=== PATIENT | female | born 1945 | race Caucasian/White ===

== ENCOUNTER 2017-08-05 14:10 | Emergency (ER) | payer MEDICARE ==
--- NOTE | 2017-08-05 15:29 | RAD ---
EXAM: TWO VIEWS RIGHT HIP: HISTORY: Fall. Pain. COMPARISON: None. FINDINGS: There appears to be suprapubic ramus fracture with possible extension to the symphysis pubis. Conto ur of the right femoral head is maintained. Mild loss of joint space height. No fracture. IMPRESSION: Right superior pubic ramus fracture with possible extension into the symphysis pubis. POS: [facility]
--- NOTE | 2017-08-05 15:33 | RAD ---
EXAM: ONE VIEW PELVIS 08/05/17 HISTORY: Fall. Pain. COMPARISON: 08/17/13. FINDINGS: Chronic changes to the left inferior and superior pubic rami are noted. Probable right superior pubi c ramus fracture. Fracture lucency may extend into the symphysis pubis. Sacroiliac joints are patent and symmetric. Sacral ala appear to be preserved. The left and right femoral head and femoral necks are symmetric on the single projection. Mild degen erative changes are noted bilaterally. IMPRESSION: Probable right inferior and superior pubic ramus fracture with fracture lucency extending into the r egion of the symphysis pubis. POS: [facility]
--- NOTE | 2017-08-05 15:58 | RAD ---
EXAM: RIGHT ELBOW 4 VIEWS: HISTORY: Fall. Injury. COMPARISON: None. FINDINGS: No fracture. No cortical irregularity. No periosteal reaction. No joint effusion. IMPRESSION: Unremarkable 4 views right elbow. POS: [facility]
[2017-08-05] MEDS ORDERED: Ondansetron ODT 4 MG TAB ONE (16:10)
[2017-08-05] MEDS ORDERED: Adacel (T-DAP) 0.5 ML VIAL ONE (16:15)
[2017-08-05] MEDS ORDERED: Bacitracin Zinc 1 Packet ONE (16:21)
[2017-08-05] MEDS ORDERED: HYDROcodone/Acetaminophen 10/325 mg Tablet ONE (18:38)
--- NOTE | 2017-08-05 20:49 | CT ---
CT OF PELVIS NONCONTRAST 08/05/17 CLINICAL HISTORY: Trauma, pain related to fall. FINDINGS: There is a minimally displaced fracture involving the right pubic body. Extending to the anterior as pect of the symphysis pubis and involving the medial aspect of the superior and inferior pubic rami. Chronic fracture deformity involves the medial left pubis. There is also a chronic fracture deformi ty involving the lateral aspect of the inferior left pubic ramus with associated osseous remodeling. Benign appearing region of sclerosis involves the intertrochanteric aspect of the proximal right fe mur. Hip joints are maintained with evidence of osteoarthritis. There is a soft tissue hematoma at t he right iliac and inguinal region. This exerts mild effacement upon the right aspect of the urinary bladder with slight leftward displacement. There is a contusion of the lateral, proximal right thig h subcutaneous region. Incidental note of vascular calcification and colonic diverticulosis. IMPRESSION: 1. Acute minimally displaced fracture involving the medial aspect of the right pubis centered a t the pubic body with involvement of medial aspect of the superior inferior pubic rami. 2. Chronic fracture deformity of the medial left pubis and lateral aspect of the inferior left pubic ramus. POS: [facility]
== END 2017-08-05 20:13 | disposition home or self-care (01) ==
LOC: SCSER 14:10
DX: S32.591A Other specified fracture of right pubis, initial encounter for closed fracture (principal); S51.011A Laceration without foreign body of right elbow, initial encounter; S76.001A Unspecified injury of muscle, fascia and tendon of right hip, initial encounter; E78.5 Hyperlipidemia, unspecified; I10 Essential (primary) hypertension; G43.909 Migraine, unspecified, not intractable, without status migrainosus; I63.9 Cerebral infarction, unspecified; Z86.711 Personal history of pulmonary embolism; Z79.01 Long term (current) use of anticoagulants; Z79.899 Other long term (current) drug therapy; W18.30XA Fall on same level, unspecified, initial encounter; Y93.02 Activity, running
CPT/HCPCS: 72170; 72192; 90471; 90715; 96372; J2270; Q0162

== ENCOUNTER 2017-08-25 09:00 | Outpatient (CLI) | payer MEDICARE ==
--- NOTE | 2017-08-25 13:09 | CT ---
CT ABDOMEN WITH AND WITHOUT IV CONTRAST: HISTORY: Hyperdense renal cyst. The patient has a history of lymphoma and is now in remission COMPARISON: 02/15/2017. FINDINGS: There is elevation of the right hemidiaphragm with adjacent subsegmental atelectatic change. A tiny pericardial effusion is present. The liver, spleen, pancreas, and adrenal glands are unremarkable. The patient is post cholecystectomy. No calculi are seen in the kidneys are visualized portion of the ureters. No hydroureteronephrosis is noted on either side. The nonenhancing, 2.5 cm, exophytic mass arising from the left kidney is s table and demonstrates an attenuation value of 39 Hounsfield units on the noncontrasted image. A ti ny calcification is seen in the posterior wall of the inferior aspect of this mass. The 1 cm low de nsity lesion in the inferior pole of the left kidney, likely cyst, is stable. There are tiny, low d ensity lesions in the right kidney, too small to characterize. A hiatal hernia is again noted. No free air, free fluid, or lymphadenopathy is seen in the abdomen. There are vascular calcifications without evidence of aneurysmal dilatation of the abdominal aorta . There are degenerative changes in the spine. There is a small fracture involving the anterior as pect of the right sacral ala, with associated increased density in the right sacral ala and the post erior aspect of the right iliac bone. These findings are new since the previous study. IMPRESSION: 1. Stable 3.5 cm exophytic left renal mass since 02/15/2017. 2. Hiatal hernia. 3. Tiny pericardial effusion. 4. Fracture of the anterior wall of the right sacral ala with associated increased density in the r ight sacral ala and right iliac bone. This is new since 02/15/2017. This may represent an insuffic iency fracture. Metastatic/infiltrative process cannot be excluded. Further evaluation with MRI of the pelvis with and without IV contrast is recommended. POS: [facility]
[2017-08-25] MEDS ORDERED: Iopamidol 370 76% 100 ML VIAL ONE (15:24)
== END 2017-08-25 09:01 | disposition home or self-care (01) ==
LOC: CT 09:00
PROVIDERS: ATTEND Urology
DX: N28.1 Cyst of kidney, acquired (principal); N28.89 Other specified disorders of kidney and ureter; K44.9 Diaphragmatic hernia without obstruction or gangrene; I31.3 Pericardial effusion (noninflammatory); S32.10XA Unspecified fracture of sacrum, initial encounter for closed fracture; I48.91 Unspecified atrial fibrillation
CPT/HCPCS: 74170

== ENCOUNTER 2017-12-24 10:58 | Outpatient (CLI) | payer MEDICARE | END 2017-12-24 10:59 | disposition home or self-care (01) | LOC: BICMAMMO 10:58 | PROVIDERS: ATTEND Family Medicine | DX: M81.0 Age-related osteoporosis without current pathological fracture (principal) | CPT/HCPCS: 77080 ==

== ENCOUNTER 2018-03-11 10:35 | Outpatient (CLI) | payer MEDICARE | END 2018-03-11 10:36 | disposition home or self-care (01) | LOC: BICMAMMO 10:35 | PROVIDERS: ATTEND Family Medicine | DX: Z12.31 Encounter for screening mammogram for malignant neoplasm of breast (principal); R92.1 Mammographic calcification found on diagnostic imaging of breast; Z85.72 Personal history of non-Hodgkin lymphomas | CPT/HCPCS: 77063; 77067 ==

== ENCOUNTER 2018-09-19 08:29 | Outpatient (CLI) | payer MEDICARE ==
[2018-09-19] MEDS ORDERED: Iopamidol 370 76% 100 ML VIAL ONE (10:59)
--- NOTE | 2018-09-19 12:28 | CT ---
CT ABDOMEN AND PELVIS: 09/19/2018 HISTORY: Grade 1 lymphoma. COMPARISON: 02/15/2017, 08/25/2017, 03/19/2016 TECHNIQUE: Serial axial CT imaging at 5 mm intervals, from the lung bases through the pubic symphysis, with intr avenous and oral contrast. Coronal reformatted imaging obtained. FINDINGS: The imaged lung bases are unremarkable. No free intraperitoneal air or fluid is seen. There are cholecystectomy clips present. The liver, spleen, pancreas, and adrenal glands demonstrate no acute findings. The right kidney is unremarkable. An exophytic, low density lesion emanates from the posteromedial aspect of the mid pole left kidney, with Hounsfield units of 30. This lesion measures 2.6 cm in AP dimension. Since the 08/25/2017 exa m, this lesion has enlarged, previously measuring 2.2 cm in AP dimension. The 08/25/2017 examination did not demonstrate significant enhancement, suggesting that this lesion represents an enlarging hem orrhagic/proteinaceous cyst. The uterus appears surgically absent. Sigmoid diverticulosis without evidence for diverticulitis noted. No focal area of bowel inflammator y change or evidence of bowel obstruction. Stable nonspecific sclerotic focus noted within the proximal right femur, on axial image 73, unchange d since 2016. There are multiple mildly prominent retroperitoneal lymph nodes within the left paraaortic region. T his includes a node measuring up to 8 mm in short axis dimension, on axial image 37, not significantl y changed when compared to multiple prior examinations. Multiple left paraortic nodes further superi mindy, near the region of the renal vasculature, on the left, also noted, measuring up to 9 mm in shor t axis dimension, also not appreciably changed since the 2016 exam. No new enlarged nodes. There is extensive atherosclerotic calcification of the abdominal aorta and its branches. There is e ctasia of the distal thoracic aorta, which measures up to 3.2 cm in greatest transverse dimension, un changed since 2016. Review of the osseous structures demonstrates fractures of the superior pubic ramus and inferior pubi c ramus, on the left, similar when compared to the 02/15/2017 exam. There is a new healing fracture involving the inferior pubic ramus on the right, when compared to 02/15/2017. There is also a healin g new fracture involving the superior pubic ramus, anteriorly, on the right, when compared to the examination. There is abnormal mottled density within the right sacral ala, similar when compared to 08/25/2017. There is an old stable left sacral ala fracture. These findings suggest extensive insufficiency frac tures of the pelvis. Degenerative change involving the bilateral hips. There are mild anterior wedge compression deformities of L1 and L2, as seen on the 08/25/2017 examina tion. IMPRESSION: 1. Stable mild retroperitoneal lymphadenopathy, unchanged since 2016. 2. Enlarging, exophytic, hyperdense lesion emanating from the left kidney. CT examination with and without contrast performed on 08/25/2017 demonstrated no enhancement of this lesion, suggesting that this represents an enlarging proteinaceous/hemorrhagic cyst. 3. Extensive atherosclerotic disease. 4. No splenomegaly. 5. Progression of insufficiency fractures within the pelvis, as detailed above. POS: [facility]
== END 2018-09-19 08:30 | disposition home or self-care (01) ==
LOC: CT 08:29
PROVIDERS: ATTEND Internal Medicine Hematology & Oncology
DX: C85.90 Non-Hodgkin lymphoma, unspecified, unspecified site (principal); R59.0 Localized enlarged lymph nodes; N28.9 Disorder of kidney and ureter, unspecified; I70.0 Atherosclerosis of aorta; M84.454A Pathological fracture, pelvis, initial encounter for fracture
CPT/HCPCS: 74177; 82565

== ENCOUNTER 2018-10-21 11:58 | Outpatient (CLI) | payer MEDICARE ==
--- NOTE | 2018-10-21 14:25 | ULT ---
BILATERAL RENAL ULTRASOUND: Date: 10/21/18 HISTORY: Hematuria. Renal cysts. FINDINGS: Comparison made with the ultrasound of 03/09/[address] scan of 09/19/18. The right kidney measures 9.0 cm in length and the left kidney measures 10.0 cm in length. No hydrone phrosis seen on either side. There is a 2.2 cm exophytic cyst arising from the inferior pole of the l eft kidney. Urinary bladder is unremarkable. The internal echoes in the cysts noted on the previous exam show significant interval improvement. IMPRESSION: Left renal cyst. POS: [facility]
== END 2018-10-21 11:59 | disposition home or self-care (01) ==
LOC: BICULT 11:58
PROVIDERS: ATTEND Urology
DX: R31.29 Other microscopic hematuria (principal); N28.1 Cyst of kidney, acquired
CPT/HCPCS: 76770

== ENCOUNTER 2019-03-13 10:47 | Outpatient (CLI) | payer MEDICARE ==
--- NOTE | 2019-03-13 11:23 | MMO ---
Bilateral MAMMO Bilat Screen [facility]. CLINICAL HISTORY: Patient is 73 years old and is seen for screening. The patient has no family history of breast cancer. The patient has a history of lymphoma at age 71. VIEWS: The views performed were: bilateral craniocaudal with tomosynthesis and bilateral mediolateral oblique with tomosynthesis. FILMS COMPARED: The present examination has been compared to prior imaging studies performed at [facility] on 12/25/2013, 02/04/2015, 02/14/2016, 03/09/2017 and 03/11/2018. MAMMOGRAM FINDINGS: There are scattered fibroglandular densities. There are stable benign appearing calcifications seen in both breasts. There are also vascular calcifications. There are no suspicious masses, suspicious calcifications, or new areas of architectural distortion. IMPRESSION: THERE IS NO MAMMOGRAPHIC EVIDENCE OF MALIGNANCY. A ROUTINE FOLLOW-UP MAMMOGRAM IN 1 YEAR IS RECOMMENDED. THE RESULTS OF THIS EXAM WERE SENT TO THE PATIENT. ACR BI-RADS Category 2 - Benign finding MAMMOGRAPHY NOTE: 1. A negative mammogram report should not delay a biopsy if a dominant of clinically suspicious mass is present. 2. Approximately 10% to 15% of breast cancers are not detected by mammography. 3. Adenosis and dense breasts may obscure an underlying neoplasm.
== END 2019-03-13 10:48 | disposition home or self-care (01) ==
LOC: BICMAMMO 10:47
PROVIDERS: ATTEND Family Medicine
DX: Z12.31 Encounter for screening mammogram for malignant neoplasm of breast (principal); Z85.72 Personal history of non-Hodgkin lymphomas
CPT/HCPCS: 77063; 77067

== ENCOUNTER 2019-03-16 13:02 | Emergency (ER) | payer MEDICARE ==
[2019-03-16 15:15] LABS: #Basophils 0.1 thou/uL (0.0-0.2); #Lymphocytes 2.5 thou/uL (1.20-3.40); #Monocytes 0.9 thou/uL (0.11-0.59); #Neutrophils 10.9 thou/uL (1.40-6.50); %Basophils 0.4 % (0.0-1.0); %Eosinophils 0.3 % (0.0-10.0); %Lymphocytes 17.2 % (21.0-51.0); %Monocytes 6.1 % (0.0-10.0); Hemoglobin 12.4 g/dL (12.0-16.0); Mean Corpuscular HGB CONC 32.6 g/dL (32.0-36.0); Mean Corpuscular Hemoglobin 26.3 pg (27.0-31.0); Mean Corpuscular Volume 80.4 fL (78.0-98.0); Mean Platelet Volume 7.7 fL (7.4-10.4); Platelet Count 332 thou/uL (130-400); RBC Distribution Width 14.9 % (11.5-14.5); Red Blood Cell (RBC) Count 4.73 mill/uL (4.20-5.40); White Blood Cell (WBC) Count 14.3 thou/uL (4.8-10.8)
[2019-03-16] MEDS ORDERED: Acetaminophen 500 MG TAB ONE (15:26)
[2019-03-16 15:33] LABS: Bilirubin Negative (Negative); Blood, Urine Small (Negative); Clarity CLEAR (Clear); Glucose, Urine (Dipstick) Negative (Negative); Leukocyte Negative (Negative); Nitrite Negative (Negative); Protein, Urine (Dipstick) Negative (Neg-Trace); Urobilinogen 0.2 mg/dL (0.2-1.0)
--- NOTE | 2019-03-16 15:33 | RAD ---
EXAM: Single view of the chest HISTORY: Fever and headache COMPARISON: 08/18/2013 FINDINGS: Single view of the chest shows an enlarged but stable cardiomediastinal silhouette. Athero sclerotic calcific lesions are seen in the aorta. There is no evidence of consolidation, mass, or pleural effusion. Hardware is seen in the cervical spine. IMPRESSION: No evidence of acute cardiopulmonary disease
[2019-03-16 15:35] LABS: Bacteria/HPF None Seen HPF (None Seen); Hyaline Casts/LPF 0-3 HYALINE CAST LPF (0-3 Hyaline); Squamous Epithelial None Seen HPF (0-3); WBC/HPF None Seen HPF (0-3)
[2019-03-16 15:37] LABS: Specific Gravity, Urine 1.003 (1.002-1.036)
[2019-03-16 15:37] LABS: ALT (SGPT) 21 U/L (8-55); AST (SGOT) 35 U/L (5-34); Albumin 4.1 g/dL (3.4-4.8); Alkaline Phosphatase 51 U/L (40-150); Anion Gap 14 mmol/L (10-20); BUN (Urea Nitrogen) 10 mg/dL (9.8-20.1); Bilirubin, Total 0.8 mg/dL (0.2-1.2); CK (CPK) 108 U/L (29-168); Calc. Creatinine Clearance 0 mL/min (70-130); Calcium 9.4 mg/dL (7.8-10.44); Carbon Dioxide 27 mmol/L (23-31); Chloride 107 mmol/L (98-107); Estimated GFR-MDRD 71; Globulin 1.7 g/dL (2.4-3.5); Glucose 91 mg/dL (83-110); Lipase 80 U/L (8-78); Potassium 3.8 mmol/L (3.5-5.1); Protein, Total 5.8 g/dL (6.0-8.3); Sodium 144 mmol/L (136-145)
[2019-03-16 15:59] LABS: CKMB 1.2 ng/mL (0-6.6)
[2019-03-16] MEDS ORDERED: diphenhydrAMINE 50 MG/ML VIAL ONE (16:05)
[2019-03-16] MEDS ORDERED: Metoclopramide HCl 10 MG/2 ML VIAL ONE (16:05)
--- NOTE | 2019-03-16 16:28 | CT ---
CT Abdomen Pelvis W Con: 03/16/2019 3:45 PM CLINICAL INFORMATION: Fever and chills. History of lymphoma. COMPARISON: None. TECHNIQUE: Multiple contiguous axial images were obtained and a CT of the abdomen and pelvis with IV contrast. C oronal reformats were performed. FINDINGS: Lower Chest: within normal limits. Abdomen: Liver: within normal limits. Bile Ducts: Normal caliber. Gallbladder: Surgically absent Pancreas: within normal limits. Spleen: within normal limits. Adrenals: within normal limits. Kidneys: 2.4 cm left renal cyst. Pelvis: Reproductive Organs: Status post hysterectomy Ureters: within normal limits. Bladder: within normal limits. Peritoneum: No ascites or free air, no fluid collection. Bowel: Normal caliber. Mesentery and Retroperitoneum: No enlarged mesenteric or retroperitoneal lymph nodes. Vessels: Atherosclerotic calcifications in the aorta and its branch vessels. Abdominal Wall: within normal limits. Bones: Degenerative changes in the spine. Remote healed pelvic fractures. IMPRESSION: 1. No evidence of acute intra-abdominal/pelvic abnormality 2. Left renal cyst
--- NOTE | 2019-03-18 10:34 | EKG ---
Test Reason : Blood Pressure : / mmHG Vent. Rate : 066 BPM Atrial Rate : 072 BPM P-R Int : 120 ms QRS Dur : 084 ms QT Int : 380 ms P-R-T Axes : 041 005 052 degrees QTc Int : 398 ms Sinus rhythm with Blocked Premature atrial complexes Otherwise normal ECG Confirmed by ANMOL ALLAN ([id number]), food editor JUAN ALBERTO GODOY ([id number]) on 03/18/2019 10:34:09 AM Referred By: Confirmed By:ANMOL ALLAN
== END 2019-03-16 17:25 | disposition home or self-care (01) ==
LOC: ERS 13:02
DX: R51 Headache (principal); R50.9 Fever, unspecified; E78.5 Hyperlipidemia, unspecified; I10 Essential (primary) hypertension; Z86.73 Personal history of transient ischemic attack (TIA), and cerebral infarction without residual deficits; Z86.711 Personal history of pulmonary embolism; Z79.01 Long term (current) use of anticoagulants; Z79.899 Other long term (current) drug therapy; Z79.52 Long term (current) use of systemic steroids
CPT/HCPCS: 36415; 71045; 74177; 80053; 81003; 81015; 82550; 82553; 83605; 83690; 84484; 85025; 87040; 87086; 93005; 94760; 96361; 96365; 96375; J1200; J2765

== ENCOUNTER 2019-07-17 12:27 | Outpatient (CLI) | payer MEDICARE ==
--- NOTE | 2019-07-17 14:47 | ULT ---
RENAL ULTRASOUND: HISTORY: Renal cyst. COMPARISON: A 03/16/2019 CT examination. FINDINGS: Real-time imaging of the right and left kidneys was performed. The right kidney measures 10 cm. The left kidney also measures 10 cm in size. The cyst seen within the left kidney is difficult to visua lize by ultrasound given its medial position. It measures approximately 2.1 x 2.4 cm which appears t o be a similar measurement to that obtained on the prior study. Bladder region is unremarkable. IMPRESSION: Stable appearance to an exophytic hypodensity within the left kidney. This is difficult to definitel y characterize as a cyst on ultrasound due to its medial position which makes imaging very difficult. It does not appear changed in size as compared to the 03/16/2019 study. I cannot definitely charact erize this as a cyst based on the ultrasound features. POS: [facility]
== END 2019-07-17 12:28 | disposition home or self-care (01) ==
LOC: BICULT 12:27
PROVIDERS: ATTEND Urology
DX: N28.1 Cyst of kidney, acquired (principal); R31.29 Other microscopic hematuria; R93.422 Abnormal radiologic findings on diagnostic imaging of left kidney
CPT/HCPCS: 76770

== ENCOUNTER 2019-12-26 09:46 | Outpatient (CLI) | payer MEDICARE ==
--- NOTE | 2019-12-26 10:23 | BD ---
EXAM: DEXA bone density examination HISTORY: 74-year-old postmenopausal female for screening COMPARISON: 11/18/2015 FINDINGS: L1--bone mineral density 0.805 g/sq cm; T score -1.7 L2--bone mineral density 0.845 g/sq cm; T score -1.7 L3--bone mineral density 0.810 g/sq cm; T score -2.5 L4--bone mineral density 0.756 g/sq cm; T score -2.8 Total L1-L4--bone mineral density 0.803 g/sq cm; T score -2.2 Left femoral neck--bone mineral density0.529; T score -2.9 Total proximal left femur--bone mineral density 0.557; T score -3.2 IMPRESSION: Osteoporosis. When compared to the prior examination, the bone is seen in the hip has dec reased approximately 9% and the bone density in the spine has not changed significantly.
== END 2019-12-26 09:47 | disposition home or self-care (01) ==
LOC: BICMAMMO 09:46
PROVIDERS: ATTEND Internal Medicine Rheumatology
DX: M81.0 Age-related osteoporosis without current pathological fracture (principal)
CPT/HCPCS: 77080

== ENCOUNTER 2020-03-20 11:15 | Outpatient (CLI) | payer MEDICARE ==
--- NOTE | 2020-03-20 11:41 | MMO ---
Bilateral MAMMO Bilat Screen [facility]. CLINICAL HISTORY: Patient is 74 years old and is seen for screening. The patient has no family history of breast cancer. The patient has a history of lymphoma at age 71. VIEWS: The views performed were: bilateral craniocaudal with tomosynthesis and bilateral mediolateral oblique with tomosynthesis. FILMS COMPARED: The present examination has been compared to prior imaging studies performed at [facility] on 02/14/2016, 03/09/2017, 03/11/2018 and 03/13/2019. This study has been interpreted with the assistance of computer-aided detection. MAMMOGRAM FINDINGS: There are scattered fibroglandular densities. There are stable benign appearing calcifications seen in both breasts. There are also vascular calcifications. There are no suspicious masses, suspicious calcifications, or new areas of architectural distortion. IMPRESSION: THERE IS NO MAMMOGRAPHIC EVIDENCE OF MALIGNANCY. A ROUTINE FOLLOW-UP MAMMOGRAM IN 1 YEAR IS RECOMMENDED. THE RESULTS OF THIS EXAM WERE SENT TO THE PATIENT. ACR BI-RADS Category 2 - Benign finding MAMMOGRAPHY NOTE: 1. A negative mammogram report should not delay a biopsy if a dominant of clinically suspicious mass is present. 2. Approximately 10% to 15% of breast cancers are not detected by mammography. 3. Adenosis and dense breasts may obscure an underlying neoplasm. Reported by: AMI HOPE MD Electonically Signed: [id number]
== END 2020-03-20 11:16 | disposition home or self-care (01) ==
LOC: BICMAMMO 11:15
PROVIDERS: ATTEND Family Medicine
DX: Z12.31 Encounter for screening mammogram for malignant neoplasm of breast (principal); Z85.72 Personal history of non-Hodgkin lymphomas
CPT/HCPCS: 77063; 77067

== ENCOUNTER 2020-07-29 11:26 | Outpatient (CLI) | payer MEDICARE ==
--- NOTE | 2020-07-29 12:48 | ULT ---
ULTRASOUND RETROPERITONEUM COMPLETE: (RENAL) DATE: 07/29/2020 HISTORY: Follow-up left renal mass in 75-year-old female COMPARISON: 10/21/2018 ultrasound 07/17/2019 ultrasound FINDINGS: There is an approximately 3 x 2 x 3 cm pedunculated exophytic cyst protruding inferomedially from the medial cortical surface of the left renal mid-lower pole. This is unchanged in size compared to CT of 03/16/2019. This is much better visualized on today's ultrasound compared to the previous, and has the appearance of a benign simple cyst, with anechoic contents and thin granados. Inferior to that, there is a round 1 x 1.5 cm lobular cyst in the lower pole parenchyma. No definite evidence of solid renal neoplasm. Right kidney is 9 x 4.5 x 4.5 cm. Left kidney is 9.5 x 6 x 4.5 cm. No hydronephrosis. Urinary bladder volume is 100 mL at time of scan with no abnormality identified. IMPRESSION: 1) 2 left renal cysts. 2) no evidence of renal neoplasm
== END 2020-07-29 11:27 | disposition home or self-care (01) ==
LOC: BICULT 11:26
PROVIDERS: ATTEND Urology
DX: N28.1 Cyst of kidney, acquired (principal)
CPT/HCPCS: 76770; 81001

== ENCOUNTER 2020-09-26 19:30 | Emergency (ER) | payer MEDICARE ==
[2020-09-26] MEDS ORDERED: Dexamethasone 10 MG/ML VIAL ONE (20:09)
[2020-09-26] MEDS ORDERED: Famotidine 20 MG TAB ONE (20:09)
== END 2020-09-26 21:16 | disposition home or self-care (01) ==
LOC: ERS 19:30
DX: R13.10 Dysphagia, unspecified (principal); R42 Dizziness and giddiness; T44.7X5A Adverse effect of beta-adrenoreceptor antagonists, initial encounter; T46.4X5A Adverse effect of angiotensin-converting-enzyme inhibitors, initial encounter; E78.5 Hyperlipidemia, unspecified; E78.00 Pure hypercholesterolemia, unspecified; I10 Essential (primary) hypertension; G43.909 Migraine, unspecified, not intractable, without status migrainosus; Z79.899 Other long term (current) drug therapy
CPT/HCPCS: 99284; J1100; J7620

== ENCOUNTER 2020-10-25 11:26 | Inpatient (IN) | payer MEDICARE ==
[2020-10-25] MEDS ORDERED: Aspirin Chewable 81 MG TAB ONE (11:53)
--- NOTE | 2020-10-25 12:10 | RAD ---
Exam: Chest one view HISTORY:Altered mental status Comparison: 03/16/2019 FINDINGS: Cardiac silhouette:Cardiomegaly. Aorta: Atherosclerosis and elongation of the aorta Pulmonary vessels: Normal Costophrenic angles: Clear LUNGS: No masses or consolidation. Chronic lung parenchymal changes. Pneumothorax: None Osseous abnormalities: Incompletely evaluated cervical fusion hardware IMPRESSION: 1. Atherosclerosis. 2. Cardiomegaly.
[2020-10-25 12:12] LABS: Bilirubin Negative (Negative); Blood, Urine Negative (Negative); Clarity Clear (Clear); Glucose, Urine (Dipstick) Normal (Negative); Ketone, Urine Negative (Negative); Leukocyte Negative Leu/uL (Negative); Nitrite Negative (Negative); Protein, Urine (Dipstick) Negative (Neg-Trace); Specific Gravity, Urine 1.005 (1.002-1.036); Urobilinogen Normal mg/dL (Less than 2)
[2020-10-25 12:21] LABS: Amphetamine Not Detected (NotDetected); Barbiturates Screen Not Detected (NotDetected); Benzodiazepine Screen Not Detected (NotDetected); Cocaine Metabolite Screen Not Detected (NotDetected); Medtox Control Line Valid? VALID (VALID); Medtox Reader # READER 4; Methadone Not Detected (NotDetected); Methamphetamine Not Detected (NotDetected); Opiate Screen Not Detected (NotDetected); Oxycodone Screen Not Detected (NotDetected); Phencyclidine (PCP) Not Detected (NotDetected); THC/Cannabinoid Screen Not Detected (NotDetected); Tricyclic Screen Not Detected (NotDetected)
[2020-10-25 12:31] LABS: #Basophils 0.1 thou/uL (0.0-0.2); #Eosinphils 0.1 thou/uL (0.0-0.7); #Monocytes 0.6 thou/uL (0.11-0.59); #Neutrophils 5.4 thou/uL (1.40-6.50); %Basophils 0.7 % (0.0-1.0); %Lymphocytes 14.5 % (21.0-51.0); %Monocytes 7.8 % (0.0-10.0); Hemoglobin 10.5 g/dL (12.0-16.0); Mean Corpuscular HGB CONC 30.7 g/dL (32.0-36.0); Mean Corpuscular Hemoglobin 24.1 pg (27.0-31.0); Mean Corpuscular Volume 78.4 fL (78.0-98.0); Mean Platelet Volume 8.5 fL (7.4-10.4); Platelet Count 294 thou/uL (130-400); RBC Distribution Width 18.5 % (11.5-14.5); Red Blood Cell (RBC) Count 4.34 mill/uL (4.20-5.40); White Blood Cell (WBC) Count 7.1 thou/uL (4.8-10.8)
[2020-10-25 12:52] LABS: Acetaminophen Less than 6.0 mcg/mL (10.0-30.0); Alcohol Less than 10 mg/dL (Less than 10); Salicylate Less than 8.0 mg/dL (15.0-30.0)
[2020-10-25 13:10] LABS: ALT (SGPT) 12 U/L (8-55); AST (SGOT) 25 U/L (5-34); Albumin 3.5 g/dL (3.4-4.8); Alkaline Phosphatase 79 U/L (40-110); Anion Gap 13 mmol/L (10-20); BUN (Urea Nitrogen) 12 mg/dL (9.8-20.1); Bilirubin, Total 0.5 mg/dL (0.2-1.2); Calc. Creatinine Clearance 0 mL/min (70-130); Calcium 8.1 mg/dL (7.8-10.44); Carbon Dioxide 26 mmol/L (23-31); Chloride 109 mmol/L (98-107); Globulin 1.6 g/dL (2.4-3.5); Glucose 94 mg/dL (83-110); Potassium 3.9 mmol/L (3.5-5.1); Protein, Total 5.1 g/dL (6.0-8.3); Sodium 144 mmol/L (136-145)
[2020-10-25 13:14] LABS: CKMB 1.8 ng/mL (0-6.6)
--- NOTE | 2020-10-25 14:10 | CT ---
CT Brain WO Con: 10/25/2020 1:40 PM CLINICAL HISTORY: History of new onset A. fib with TIAs and a syncopal episode. IMAGING TECHNIQUE: Multiple CT images were obtained of the brain without IV contrast. COMPARISON: CT of the cervical spine dated December 19, 2014. FINDINGS: BRAIN: Evidence of acute infarct: None. Evidence of chronic ischemic change:There is [id number] chronic small vessel matter ischemic ch davi. Evidence of intracranial hemorrhage: None. Evidence of brain volume loss:There is [id number] generalized cerebral atrophy. Evidence of midline shift: Third ventricle and septum pellucidum are midline. Ventricles: Normal. No hydrocephalus. SKULL: Intact. VISUALIZED PARANASAL SINUSES: Clear. MASTOID AIR CELLS: Clear. EXTRACRANIAL SOFT TISSUES: Advanced degenerative change at C1-C2 and the occiput C1 articulation is stable to the CT of the cervical spine. IMPRESSION: No acute intracranial abnormality.
--- NOTE | 2020-10-25 14:45 | PDOC.HHP ---
Hospitalist HPI - History of Present Illness Weakness, syncope History of Present Illness: Ms. Yung is a 75-year-old female with a past medical history of lupus, pulmonary embolism on warfarin, hyperlipidemia, hypertension, migraines who presented to the emergency room for weakness and syncopal episodes. Patient was brought in by who most of the history was taken from. Her reports that this morning they were up cooking breakfast and his became nauseous and felt weak. He gave her some soda and crackers but this did not help her symptoms. reports that she was sitting up kept on repeating she did not feel well, and then fell backwards in her chair unconscious. Patient r egained consciousness about 30 seconds later, but had mumbled speech for a few seconds. Patient's then helped her move to the other room to lie down where she again lost consciousness for 30 to 60 seconds this time. Patient's then called EMS and she was brought to the emergency room. EMS did note 3 repeated episodes of loss of consciousness all lasting for 30 seconds in nature. Also question of brief A. fib on EKG during transport, but otherwise in normal sinus rhythm. Patient denies any numbness or weakness to her extremities, she endorses being confused and feeling weak. She is now ANO x3 and her and her reports she is back at her baseline mental status. She denies any history of prior syncopal episodes. Denies melena, hematochezia, hematuria. Denies chest pain, shortness of breath. Emergency room initial vital signs 151/58, 77, 15, 98% on room air, 98.7. H/H 10.5/34.0. White blood cell count 7.1. BUNs/CR 12/0.72. Sodium 144, potassium 3.[address] brain showed no acute abnormalities. Chest x-ray with no acute findings. Urinalysis negative. EKG showed normal sinus rhythm with no ST changes. Troponin indeterminate at 0.047. Drug screen and Tylenol level negative. Patient received 1 L of normal saline and 325 mg of aspirin. Hospitalist ROS - Review of Systems Constitutional: reports: chills, weakness, malaise. denies: fever, sweats Eyes: denies: pain, vision change, conjunctivae inflammation, eyelid inflammation, redness, other ENT: denies: ear pain, ear discharge, nose pain, nose discharge, nose congestion, mouth pain, mouth swelling, throat pain, throat swelling, other Respiratory: denies: cough, dry, shortness of breath, hemoptysis, SOB with excertion, pleuritic pain, sputum, wheezing, other Cardiovascular: reports: light headedness, other (Syncope) Gastrointestinal: reports: nausea. denies: vomiting, abdominal pain, diarrhea, constipation, melena, hematochezia, other Genitourinary: denies: dysuria, frequency, incontinence, hematuria, retention, other Musculoskeletal: denies: neck pain, shoulder pain, arm pain, back pain, hand pain, leg pain, foot pain, other Skin: denies: rash, lesions, bartolome, bruising, other Neurological: reports: change in speech, confusion (Syncope), other. denies: weakness, numbness, incoordination, seizures - Medication Medications: New medications include Prednisone Lasix Atorvastatin Gabapentin Warfarin Baclofen Vitamin D3 Calcium Omeprazole Metoprolol Maxalt Boniva Methotrexate Folic acid Patient with allergy to penicillin, alcohol, chocolate, Myrbetriq Hospitalist History - Past Medical History Other Medical History: Past medical history includes Lupus Unprovoked pulmonary embolism on warfarinpatient reports that there is a question if she had clot that caused a TIA but details are unclear, and no records in our system of this. Hypertension Hyperlipidemia Migraines - Past Surgical History Other Surgical History: Past surgical history includes Hysterectomy Tonsillectomy - Family History Other Family History: No pertinent family history - Social History Smoking Status: Never smoker Alcohol: reports: None Drugs: reports: none Living Situation: With Family Activity level: independent ambulation - Exam General Appearance: NAD, awake alert General - other findings: Alert and oriented x4, but slightly confused Eye: PERRL, anicteric sclera ENT: normocephalic atraumatic, no oropharyngeal lesions, moist mucosa Neck: supple, symmetric, no JVD, no thyromegaly, no lymphadenopathy, no carotid bruit Heart: RRR, no murmur, no gallops, no rubs, normal peripheral pulses Respiratory: CTAB, no wheezes, no rales, no ronchi, normal chest expansion, no tachypnea, normal percussion Gastrointestinal: soft, non-tender, non-distended, normal bowel sounds, no palpable masses, no hepatomegaly, no splenomegaly, no bruit Extremities: no cyanosis, no clubbing, no edema Skin: normal turgor, no lesions, no rashes Neurological: normal sensation to touch, no weakness, no focal deficits, no new deficit Musculoskeletal: normal tone, normal strength, no muscle wasting Psychiatric: normal affect, normal behavior, A&O x 3 Psychiatric - other findings: Confused but ANO x3 Hospitalist Results - Labs Result Diagrams: 10/25/20 12:20 10/25/20 12:20 Lab results: WBC 7.1 thou/uL (4.8-10.8) 10/25/20 12:20 Hgb 10.5 g/dL (12.0-16.0) L 10/25/20 12:20 Hct 34.0 % (36.0-47.0) L 10/25/20 12:20 MCV 78.4 fL (78.0-98.0) 10/25/20 12:20 Plt Count 294 thou/uL (130-400) 10/25/20 12:20 Neutrophils % 76.0 % (42.0-75.0) H 10/25/20 12:20 Sodium 144 mmol/L (136-145) 10/25/20 12:20 Potassium 3.9 mmol/L (3.5-5.1) 10/25/20 12:20 Chloride 109 mmol/L (98-107) H 10/25/20 12:20 Carbon Dioxide 26 mmol/L (23-31) 10/25/20 12:20 BUN 12 mg/dL (9.8-20.1) 10/25/20 12:20 Creatinine 0.72 mg/dL (0.6-1.1) 10/25/20 12:20 Glucose 94 mg/dL (83-110) 10/25/20 12:20 Calcium 8.1 mg/dL (7.8-10.44) 10/25/20 12:20 Total Bilirubin 0.5 mg/dL (0.2-1.2) 10/25/20 12:20 AST 25 U/L (5-34) 10/25/20 12:20 ALT 12 U/L (8-55) 10/25/20 12:20 Alkaline Phosphatase 79 U/L (40-110) 10/25/20 12:20 CK-MB (CK-2) 1.8 ng/mL (0-6.6) 10/25/20 12:20 Troponin I 0.047 ng/mL (< 0.028) H 10/25/20 12:20 Serum Total Protein 5.1 g/dL (6.0-8.3) L 10/25/20 12:20 Albumin 3.5 g/dL (3.4-4.8) 10/25/20 12:20 Urine Ketones Negative mg/dL (Negative) 10/25/20 10:55 Urine Blood Negative (Negative) 10/25/20 10:55 Urine Nitrite Negative (Negative) 10/25/20 10:55 Ur Leukocyte Esterase Negative Aileen/uL (Negative) 10/25/20 10:55 Hospitalist H&P A/P - Plan Plan: 75-year-old female with past medical history of lupus, pulmonary embolism on warfarin, hypertension, hyperlipidemia, migraines presents to ED with weakness, malaise and multiple syncopal episodes. Syncopal episodes Head CT negative, EKG with normal sinus rhythm no ischemic changes. No signs of infection afebrile, WBC 7.1. H/H 10.5/34.0. Blood cultures pending. No melena, hematochezia. No history of prior syncopal events. Patient denies palpitations or chest pain. Chest x-ray with no acute findings. No obvious electrolyte abnormalities. Vital signs stable and patient back to baseline mental status. Plan Aspirin, statin MRI brain Telemetry monitoring Magnesium, TSH Q4 hour neuro checks Covid swab, orthostatic VS Elevated troponin Patient's troponin very mildly elevated at 0.047. Patient without chest pain. EKG with no ischemic changes. Will continue to trend troponin and closely monitor. Plan Trend troponin Telemetry monitoring Covid swab Lupus History of lupus on prednisone and methotrexate. We will continue these. History of pulmonary embolism History of unprovoked DVT and PE. Patient and describe what sounds like a blood clot causing a TIA to the brain. Unsure if this is a venous clot or an arterial clot. Patient is on therapeutic warfarin. Will obtain d-dimer. Plan PT/INR Warfarin -D-dimer Hypertension Continue home medications once confirmed Hyperlipidemia Continue home statin once confirmed DVT prophylaxison warfarin Full codeMDM is patient's Case discussed with Dr. Morley.
[2020-10-25] MEDS ORDERED: Acetaminophen 650 MG Suppository PR PRN (15:01)
[2020-10-25] MEDS ORDERED: Ondansetron PF 4 MG/2 ML Vial IVP PRN (15:01)
[2020-10-25] MEDS ORDERED: Ondansetron ODT 4 MG TAB PO PRN (15:01)
[2020-10-25 15:38] LABS: INR-International Normal Ratio 1.8; Prothrombin Time 21.2 sec (12.0-14.7)
[2020-10-25 15:41] LABS: D-Dimer Test Less than 0.27 *mcg/mL (0.27-0.43)
[2020-10-25 15:46] LABS: Calcium 7.8 mg/dL (7.8-10.44); Magnesium 1.7 mg/dL (1.6-2.6)
[2020-10-25] MEDS: Sodium Chloride 0.9% 1,000 ML IV SCH (16:57)
[2020-10-25 17:08] VITALS: BMI 22.0
[2020-10-25 17:09] LABS: Troponin I 0.045 ng/mL (< 0.028)
[2020-10-25 20:01] LABS: Troponin I 0.025 ng/mL (< 0.028)
[2020-10-25 20:20] LABS: CKMB 1.8 ng/mL (0-6.6)
[2020-10-25] MEDS: Acetaminophen 325 MG TAB PO PRN (20:41)
[2020-10-25] MEDS ORDERED: hydrALAZINE 20 MG/ML VIAL SLOW IVP SCH (21:45)
[2020-10-25 22:14] LABS: SARS-CoV-2 MS2 Positive; SARS-CoV-2 N Gene Negative; SARS-CoV-2 S Gene Negative; SARS-CoV-2 by NAA Not Detected (NotDetected); SARS-CoV-2 orf1ab Negative
[2020-10-25] MEDS ORDERED: Nitroglycerin 0.4 MG TAB (25 Tab Bottle) ONE (23:46)
[2020-10-25] MEDS ORDERED: Morphine 4 MG/ML VIAL ONE (23:53)
[2020-10-26] MEDS ORDERED: Nitroglycerin 50 MG/250 ML BOT 250 ML ONE (00:01)
[2020-10-26] MEDS ORDERED: Enoxaparin Sodium 60 MG/0.6 ML SYRINGE SC SCH (00:15)
[2020-10-26] MEDS ORDERED: Nitroglycerin 50 MG/250 ML BOT 250 ML IVPB SCH (00:15)
[2020-10-26 00:16] LABS: #Eosinphils 0.1 thou/uL (0.0-0.7); #Lymphocytes 1.6 thou/uL (1.20-3.40); #Monocytes 0.4 thou/uL (0.11-0.59); #Neutrophils 1.8 thou/uL (1.40-6.50); %Basophils 0.8 % (0.0-1.0); %Eosinophils 1.8 % (0.0-10.0); %Lymphocytes 41.2 % (21.0-51.0); %Monocytes 9.9 % (0.0-10.0); %Neutrophils 46.3 % (42.0-75.0); Hemoglobin 10.5 g/dL (12.0-16.0); Mean Corpuscular HGB CONC 31.6 g/dL (32.0-36.0); Mean Corpuscular Hemoglobin 24.8 pg (27.0-31.0); Mean Corpuscular Volume 78.4 fL (78.0-98.0); Mean Platelet Volume 8.5 fL (7.4-10.4); Platelet Count 288 thou/uL (130-400); RBC Distribution Width 18.6 % (11.5-14.5); Red Blood Cell (RBC) Count 4.22 mill/uL (4.20-5.40); White Blood Cell (WBC) Count 3.8 thou/uL (4.8-10.8)
[2020-10-26 00:27] LABS: Lactic Acid 1.4 mmol/L (0.5-2.2)
[2020-10-26 00:32] LABS: ALT (SGPT) 13 U/L (8-55); AST (SGOT) 25 U/L (5-34); Albumin 3.5 g/dL (3.4-4.8); Alkaline Phosphatase 78 U/L (40-110); Anion Gap 15 mmol/L (10-20); BUN (Urea Nitrogen) 10 mg/dL (9.8-20.1); Bilirubin, Total 0.6 mg/dL (0.2-1.2); Calc. Creatinine Clearance 61 mL/min (70-130); Calcium 8.1 mg/dL (7.8-10.44); Carbon Dioxide 21 mmol/L (23-31); Chloride 111 mmol/L (98-107); Globulin 1.9 g/dL (2.4-3.5); Glucose 93 mg/dL (83-110); Magnesium 1.8 mg/dL (1.6-2.6); Potassium 3.6 mmol/L (3.5-5.1); Protein, Total 5.4 g/dL (6.0-8.3); Sodium 143 mmol/L (136-145)
--- NOTE | 2020-10-26 00:59 | PDOC.BPN ---
- Brief Progress Note Encounter Date: 10/26/20 [facility] SINGH was called for Ms. Horowitz on account of CVA 90 08/10 chest pain of sudden onset. She was also hypotensive with systolic blood pressures above 200s. Pain improved slightly with nitroglycerin and morphine however remained persistent. EKG showed no acute ST-T wave changes and was unchanged from admission. She has DVT she is on Coumadin however INR is subtherapeutic at 1.8 A/P This could be ACS versus PE We will start her on Lovenox as INR is supratherapeutic cover for both Blood pressure remains in the hypertensive emergency rangewe will start nitro drip and transferred to CCU Monitor closely CTA ordered
[2020-10-26] MEDS: Sodium Chloride 0.9% 1,000 ML IV SCH (01:01)
[2020-10-26 03:37] LABS: #Eosinphils 0.2 thou/uL (0.0-0.7); #Lymphocytes 1.9 thou/uL (1.20-3.40); #Monocytes 0.8 thou/uL (0.11-0.59); %Basophils 0.5 % (0.0-1.0); %Eosinophils 3.4 % (0.0-10.0); %Lymphocytes 32.6 % (21.0-51.0); %Monocytes 12.8 % (0.0-10.0); %Neutrophils 50.7 % (42.0-75.0); Hemoglobin 9.1 g/dL (12.0-16.0); Mean Corpuscular HGB CONC 31.3 g/dL (32.0-36.0); Mean Corpuscular Hemoglobin 24.6 pg (27.0-31.0); Mean Corpuscular Volume 78.5 fL (78.0-98.0); Mean Platelet Volume 8.4 fL (7.4-10.4); Platelet Count 273 thou/uL (130-400); RBC Distribution Width 18.6 % (11.5-14.5); Red Blood Cell (RBC) Count 3.71 mill/uL (4.20-5.40); White Blood Cell (WBC) Count 5.9 thou/uL (4.8-10.8)
[2020-10-26 04:00] LABS: Anion Gap 10 mmol/L (10-20); BUN (Urea Nitrogen) 10 mg/dL (9.8-20.1); Calc. Creatinine Clearance 66 mL/min (70-130); Calcium 7.5 mg/dL (7.8-10.44); Carbon Dioxide 25 mmol/L (23-31); Chloride 111 mmol/L (98-107); Glucose 90 mg/dL (83-110); Potassium 3.5 mmol/L (3.5-5.1); Sodium 142 mmol/L (136-145)
--- NOTE | 2020-10-26 08:44 | CT ---
PRELIMINARY REPORT/[facility]/EMERGENCY AFTER HOURS PROCEDURE EXAM: CTA Chest with Intravenous Contrast CLINICAL HISTORY: CODE GREEN/ Chest pain, severe, rule out PE TECHNIQUE: Axial CTA images of the chest with intravenous contrast. Three-dimensional MIP/volume rendered reform ations were performed. Multiplanar reformats provided. CONTRAST: With; ISOVUE 370; 42mL intravenous. COMPARISON: None provided. FINDINGS: PULMONARY ARTERIES There is no intraluminal filling defect suspicious for PE. AORTA No thoracic aortic aneurysm or dissection. LUNGS No focal consolidation. Bibasilar subsegmental atelectasis and/or scarring. Scattered sub-4 mm nodule s. PLEURAL SPACES No pleural effusion. No pneumothorax. HEART AND MEDIASTINUM Coronary artery calcifications. Heart size is mildly enlarged. No pericardial effusion. LYMPH NODES Multiple prominent mediastinal and hilar lymph nodes. BONES No focal osseous abnormality or acute fracture. Multilevel degenerative changes of the spine. CHEST WALL AND UPPER ABDOMEN Multiple small nodules within the thyroid. Coarse calcifications within the breasts. Prominent axilla ry lymph nodes. Surgical absence of the gallbladder. 3 cm indeterminate exophytic lesion arising from the lower pole of the left kidney. Small hiatal hernia. IMPRESSION: 1. Negative for PE. 2. Coronary artery disease and mild cardiomegaly. 3. Small hiatal hernia. 4. Breast calcifications and prominent axillary lymph nodes. Correlate with findings on mammography if not regularly performed. ELECTRONICALLY SIGNED BY: Jayme Chawla M.D. Oct 26, 2020 12:57:31 AM BRIDGE REPAIRER This report is intended for review by the ordering physician only, in accordance of law. If you recei ve this report in error, please call [facility] at [phone]. FINAL REPORT Exam: CT angiogram of the chest HISTORY: Chest pain. COMPARISON: None TECHNIQUE: CT angiogram of the chest is performed in the axial plane. Three-dimensional reformatted i mages are submitted for interpretation FINDINGS: Mediastinum: No mass, lymphadenopathy or hematoma. HEART: Normal size. No significant pericardial fluid. Aorta: No aneurysm or dissection Upper solid abdominal viscera: No abnormality enhancement. Trachea and central bronchi: Patent Pleural spaces: No effusion Lung parenchyma: No masses or consolidation. Pneumothorax: None Osseous structures: No lytic or blastic lesions. Remote mild compression deformities in the upper lum bar spine. Pulmonary arteries: Adequate contrast opacification pulmonary arterial system to the level of segment al arteries. No filling defect to suggest pulmonary embolism IMPRESSION: 1. This report is in agreement with initial report by [facility]. 2. No evidence of pulmonary artery embolism to the level of segmental arteries. Transcribed Date/Time: 10/26/2020 9:34 AM
[2020-10-26] MEDS: Nebivolol HCl 5 MG TAB PO SCH (09:07)
[2020-10-26] MEDS: Aspirin Chewable 81 MG TAB PO SCH (09:08)
[2020-10-26] MEDS: Atorvastatin Calcium 10 MG TAB PO SCH (09:08)
[2020-10-26] MEDS: Cholecalciferol 1,000 UNITS (25 MCG) TAB PO SCH (09:08)
[2020-10-26] MEDS: predniSONE 5 MG TAB PO SCH (09:08)
[2020-10-26] MEDS: Calcium Carbonate 600 MG + Vit D TAB PO SCH (09:08)
[2020-10-26] MEDS: Enoxaparin Sodium 60 MG/0.6 ML SYRINGE SC SCH ×2 (09:13→20:42)
--- NOTE | 2020-10-26 12:52 | MRI ---
Exam: Brain MRI without contrast HISTORY: Syncope. Transient ischemic attack COMPARISON: None FINDINGS: Calvarial marrow signal intensity: Appropriate T1 signal Gradient echo sequence: No hemorrhage Brain parenchyma: No mass, mass effect or midline shift. Brain volume, age-appropriate. Cortical godinez-white matter differentiation: Preserved Restricted diffusion: Central arterial flow voids are maintained. Absent restricted diffusion White matter signal intensities: T2, FLAIR white matter hyperintensities due to chronic small vessel ischemic changes Sinuses: Mild mucosal thickening of the paranasal sinuses. IMPRESSION: 1. Absent restricted diffusion. No acute infarct 2. Age-appropriate atrophy. 3. Chronic small vessel ischemic changes of white matter.
[2020-10-26] MEDS ORDERED: Iopamidol-370 76% 500 ML 1 ML ONE (13:37)
--- NOTE | 2020-10-26 14:24 | PDOC.HOSPP ---
- Subjective Encounter Date: 10/26/20 Encounter Time: 12:30 Subjective: no c/o palp or sob at bedside previous stress test was more than 10 yrs ago per has some epigastric dyscomfort, no chest pain as such now - Objective Vital Signs & Weight: Vital Signs (12 hours) Temp Pulse Resp BP Pulse Ox 10/26/20 12:55 99.9 F H 75 18 151/72 H 95 10/26/20 11:00 99.7 F H 10/26/20 08:00 99 10/26/20 07:00 99.4 F 10/26/20 04:00 97.5 F L Weight Weight 120 lb 6.4 oz Most Recent Monitor Data Heart Rate from ECG 75 NIBP 167/70 NIBP BP-Mean 102 Respiration from ECG 19 SpO2 93 I&O: 10/25/20 10/26/20 10/27/20 06:59 06:59 06:59 Intake Total 655 1227.6 Output Total 0 450 Balance 655 777.6 Result Diagrams: 10/26/20 03:19 10/26/20 03:19 Additional Labs: Accuchecks 10/25/20 23:45 POC Glucose 90 Hospitalist ROS - Medication Medications: Active Medications Generic Name Dose Route Start Last Admin Trade Name Freq PRN Reason Stop Dose Admin Acetaminophen 650 mg 10/25/20 15:01 10/25/20 20:41 Acetaminophen 325 Mg Tab PO 650 mg Q4H PRN Administration Headache/Fever/Mild Pain (1-3) Aspirin 81 mg 10/26/20 09:00 10/26/20 09:08 Aspirin Chewable 81 Mg Tab PO 81 mg DAILY HARINI Administration Atorvastatin Calcium 10 mg 10/26/20 09:00 10/26/20 09:08 Atorvastatin Calcium 10 Mg Tab PO 10 mg DAILY HARINI Administration Calcium/Vitamin D 1 tab 10/26/20 09:00 10/26/20 09:08 Calcium Carbonate 600 Mg + Vit D Tab PO 1 tab DAILY HARINI Administration Cholecalciferol 1,000 units 10/26/20 09:00 10/26/20 09:08 Cholecalciferol 1,000 Units (25 Mcg) Tab PO 1,000 units DAILY HARINI Administration Enoxaparin Sodium 50 mg 10/26/20 09:00 10/26/20 09:13 Enoxaparin Sodium 60 Mg/0.6 Ml Syringe SC 50 mg 0900,2100 HARINI Administration Sodium Chloride 1,000 mls @ 75 mls/hr 10/25/20 15:15 10/26/20 01:01 Normal Saline 0.9% IV 1,000 mls .[id number] HARINI Administration Nebivolol 5 mg 10/26/20 09:00 10/26/20 09:07 Nebivolol Hcl 5 Mg Tab PO 5 mg DAILY HARINI Administration Ondansetron HCl 4 mg 10/25/20 15:01 10/26/20 09:06 Ondansetron Pf 4 Mg/2 Ml Vial IVP 4 mg Q6H PRN Administration Nausea/Vomiting Prednisone 5 mg 10/26/20 09:00 10/26/20 09:08 Prednisone 5 Mg Tab PO 5 mg DAILY HARINI Administration - Exam General Appearance: awake alert Eye: PERRL, anicteric sclera ENT: no oropharyngeal lesions, moist mucosa Neck: supple, no JVD Heart: RRR, no murmur Respiratory: no wheezes, no rales Gastrointestinal: soft, non-tender, non-distended, normal bowel sounds Extremities: no cyanosis, no edema Neurological: cranial nerve grossly intact, no focal deficits Psychiatric: normal affect, A&O x 3 Hosp A/P (1) AMS (altered mental status) Code(s): R41.82 - ALTERED MENTAL STATUS, UNSPECIFIED Status: Resolved (2) Syncope Code(s): R55 - SYNCOPE AND COLLAPSE Status: Resolved Qualifiers: Syncope type: unspecified Qualified Code(s): R55 - Syncope and collapse (3) Unstable angina Status: Suspected (4) Epigastric pain Code(s): R10.13 - EPIGASTRIC PAIN Status: Acute (5) HTN (hypertension) Code(s): I10 - ESSENTIAL (PRIMARY) HYPERTENSION Status: Chronic Qualifiers: Hypertension type: essential hypertension Qualified Code(s): I10 - Ess ential (primary) hypertension (6) Dyslipidemia Code(s): E78.5 - HYPERLIPIDEMIA, UNSPECIFIED Status: Chronic (7) Hx of pulmonary embolus Code(s): Z86.711 - PERSONAL HISTORY OF PULMONARY EMBOLISM Status: Chronic (8) H/O systemic lupus erythematosus (SLE) Code(s): M32.9 - SYSTEMIC LUPUS ERYTHEMATOSUS, UNSPECIFIED Status: Chronic - Plan dc nitroglycerin drip, tx to telemetry ekg, imaging and labs were reviewed cardiology consultation continue asp, lipitor, lovenox, bystolic and prednisone ef is normal, bnp is around 830 may get stress test, await cardiology opinion hemostable to ambulate as tolerated likely has chronic anemia
--- NOTE | 2020-10-26 14:36 | CON ---
DATE OF CONSULTATION: 10/26/2020 HISTORY OF PRESENT ILLNESS: Ms. Horowitz is a 75-year-old female. She was admitted yesterday afternoon with complaints of nausea and weakness. Apparently, she had syncope at home, but recovered within 30 seconds. She again lost consciousness for up to a minute before EMS got there. It is unclear whether or not she had rhythm disturbances during these losses of consciousness. She is admitted to the floor, and apparently, had severe chest discomfort radiating to her left arm according to her . She said it was severe enough that she was starting to cry. It got considerably better with nitroglycerin administration according to the . She was transferred to Critical Care Unit. She is in no pain at the time of my evaluation. She had a CT angiogram that was negative. Troponin last night was normal. Her BNP was 830. PAST MEDICAL HISTORY: 1. She saw Dr. Bobby about 15 years ago and had a stress test that was reportedly negative. 2. She has a history of admission in 2013 with a pubic ramus fracture after she fell at home. 3. She has a history of lupus. 4. She has a history of pulmonary embolism. 5. History of hypertension. 6. Lipid disorder. 7. History of vascular headaches. 8. Status post hysterectomy and tonsillectomy. 9. History of retroperitoneal biopsy in 2012, showed a B-cell non-Hodgkin lymphoma, follicular origin. FAMILY HISTORY: Negative for lung disease in early age. SOCIAL HISTORY: She is nonsmoker and nondrinker. REVIEW OF SYSTEMS: Otherwise, negative. PHYSICAL EXAMINATION: GENERAL: She is in no distress. Denies having chest pain. She appears older than her age. VITAL SIGNS: Blood pressure 167/70, heart rate 75, respiratory rates 19. HEAD AND NECK: Unremarkable. LUNGS: Clear. HEART: Regular rhythm. ABDOMEN: Soft. EXTREMITIES: Without asymmetry. LABORATORY DATA: White count 5.9, hemoglobin 9.1, and platelets 273. Electrolytes are unremarkable. IMPRESSION: Chest pain with radiation to arm, relieved by nitroglycerin. She did not have an abnormal troponin last night I still feel Cardiology should be involved in sorting through this, given that she had to be transferred to Critical Care Unit and received nitroglycerin to control blood pressure and her pain. We will follow. She is clinically stable at this time. CT angiogram last night was negative. I am not sure what her history of lymphoma entails. I cannot find any documentation, medical records whether or not this has been treated in the past as well. We will follow the other physicians. TIME SPENT: 70-minute consult, 50% of the time was spent on the unit coordinating care. Job ID: [id number] MTDD
--- NOTE | 2020-10-26 16:47 | CON ---
DATE OF CONSULTATION: HISTORY OF PRESENT ILLNESS: The patient is a 75-year-old woman, who presents for evaluation of syncope and chest discomfort. The patient states that she underwent a cardiac evaluation approximately 15 years ago including a stress test, which was unremarkable. The patient was in her usual state of health when yesterday she started feeling nauseated, and she became very dizzy . She sat down and lost consciousness. The patient was in the ambulance, and apparently, had several other episodes where she suddenly lost consciousness. The patient was noted apparently to have an irregular heart rhythm. The patient was admitted for further evaluation. The patient last evening had a recurrent dizziness. The patient reported having severe substernal chest discomfort. The patient states that discomfort was in the middle of her chest. It seemed to improve with nitroglycerin. The patient states the chest discomfort is still present. It seems to be worse when she coughs. PAST MEDICAL HISTORY: 1. Lupus. 2. Pulmonary embolus. 3. TIA. 4. Hypertension. 5. Lymphoma. PAST SURGICAL HISTORY: Hysterectomy,and tonsillectomy. SOCIAL HISTORY: Nonsmoker. FAMILY HISTORY: No strong family history of heart disease. ALLERGIES: NO KNOWN DRUG ALLERGIES. MEDICATIONS: 1. Bystolic 5 daily. 2. Lisinopril 10 daily. 3. Warfarin 4 at bedtime. 4. Prednisone 5 daily. 5. Potassium 10 daily. 6. Omeprazole 20 daily. 7. Lasix 20 daily. 8. Lipitor 10 at bedtime. 9. Xanax p.r.n. 10. Gabapentin 100 b.i.d. REVIEW OF SYSTEMS: Ten-point system otherwise unremarkable. No history of easy bruising or bleeding. PHYSICAL EXAMINATION: GENERAL: This is a thin woman, in no acute distress. VITAL SIGNS: Blood pressure of 156/61. NECK: Showed no jugular venous distention. LUNGS: Clear to auscultation. HEART: Regular rate and rhythm. Normal S1 and S2. 1/6 systolic murmur. ABDOMEN: Nondistended. EXTREMITIES: Show no edema. VASCULAR: Radial pulse 2+. LABORATORY DATA: White blood cell count 5.9, hemoglobin 9.1, hematocrit 29.2, platelets 273. Sodium is 142, potassium 3.5, chloride 111, bicarbonate 25, BUN 10, creatinine 0.62, and glucose is 90. EKG normal sinus rhythm with a nonspecific T-wave abnormality. IMPRESSION: 1. Chest pain with primarily atypical features. 2. Syncope 3. Systemic lupus erythematosus. 4. History of transient ischemic attack. 5. History of pulmonary embolus. 6. Hypertension, poorly controlled. 7. History of lymphoma. This patient presents with persistent chest pain. Her cardiac enzymes revealed no evidence of myocardial infarction. Her EKG is unremarkable. The patient will undergo stress testing tomorrow to see if there is evidence of ischemia. I would recommend restarting the patient on lisinopril to better control her blood pressure. We will treat the patient with Prilosec just in case this discomfort is gastrointestinal. We will follow this patient with you through her hospitalization. Job ID: [id number] MTDD
[2020-10-26] MEDS ORDERED: Warfarin Sodium 2 MG TAB PO SCH (17:00)
[2020-10-26] MEDS: Lisinopril 10 MG TAB PO SCH (20:43)
[2020-10-26] MEDS: Acetaminophen 325 MG TAB PO PRN (20:43)
[2020-10-27 05:19] LABS: #Basophils 0.1 thou/uL (0.0-0.2); #Eosinphils 0.2 thou/uL (0.0-0.7); #Lymphocytes 2.2 thou/uL (1.20-3.40); #Monocytes 0.8 thou/uL (0.11-0.59); #Neutrophils 3.1 thou/uL (1.40-6.50); %Basophils 1.1 % (0.0-1.0); %Eosinophils 2.9 % (0.0-10.0); %Lymphocytes 34.3 % (21.0-51.0); %Neutrophils 48.7 % (42.0-75.0); Hemoglobin 9.6 g/dL (12.0-16.0); Mean Corpuscular HGB CONC 31.4 g/dL (32.0-36.0); Mean Corpuscular Hemoglobin 24.6 pg (27.0-31.0); Mean Corpuscular Volume 78.4 fL (78.0-98.0); Mean Platelet Volume 8.6 fL (7.4-10.4); Platelet Count 273 thou/uL (130-400); RBC Distribution Width 18.5 % (11.5-14.5); White Blood Cell (WBC) Count 6.4 thou/uL (4.8-10.8)
[2020-10-27 05:41] LABS: Anion Gap 10 mmol/L (10-20); BUN (Urea Nitrogen) 10 mg/dL (9.8-20.1); Calc. Creatinine Clearance 61 mL/min (70-130); Calcium 8.2 mg/dL (7.8-10.44); Carbon Dioxide 27 mmol/L (23-31); Chloride 111 mmol/L (98-107); Glucose 78 mg/dL (83-110); Potassium 3.3 mmol/L (3.5-5.1); Sodium 145 mmol/L (136-145)
[2020-10-27] MEDS: Cholecalciferol 1,000 UNITS (25 MCG) TAB PO SCH (08:37)
[2020-10-27] MEDS: Calcium Carbonate 600 MG + Vit D TAB PO SCH (08:37)
[2020-10-27] MEDS: Aspirin Chewable 81 MG TAB PO SCH (08:37)
[2020-10-27] MEDS: Atorvastatin Calcium 10 MG TAB PO SCH (08:37)
[2020-10-27] MEDS: predniSONE 5 MG TAB PO SCH (08:37)
[2020-10-27] MEDS: Lisinopril 10 MG TAB PO SCH ×2 (09:40→20:21)
[2020-10-27] MEDS: Nebivolol HCl 5 MG TAB PO SCH (09:40)
[2020-10-27] MEDS ORDERED: Regadenoson 0.4 MG/5 ML SYRINGE ONE (11:58)
[2020-10-27] MEDS ORDERED: NIFEdipine XL 60 MG TAB PO STA (12:08)
--- NOTE | 2020-10-27 12:09 | PDOC.HOSPP ---
- Subjective Encounter Date: 10/27/20 Encounter Time: 10:30 Subjective: no c/o chest pain or palp or sob is amb in room at bedside - Objective Vital Signs & Weight: Vital Signs (12 hours) Temp Pulse Resp BP BP Pulse Ox 10/27/20 08:12 96 10/27/20 07:53 98.1 F 73 16 151/73 H 96 10/27/20 03:50 98.2 F 66 16 160/64 H 93 L 10/27/20 01:38 66 159/69 H Weight Weight 120 lb 6.4 oz Most Recent Monitor Data Heart Rate from ECG 75 NIBP 167/70 NIBP BP-Mean 102 Respiration from ECG 19 SpO2 93 I&O: 10/26/20 10/27/20 10/28/20 06:59 06:59 06:59 Intake Total 655 2147.6 Output Total 0 450 Balance 655 1697.6 Result Diagrams: 10/27/20 04:46 10/27/20 04:46 Hospitalist ROS - Medication Medications: Active Medications Generic Name Dose Route Start Last Admin Trade Name Freq PRN Reason Stop Dose Admin Acetaminophen 650 mg 10/25/20 15:01 10/26/20 20:43 Acetaminophen 325 Mg Tab PO 650 mg Q4H PRN Administration Headache/Fever/Mild Pain (1-3) Aspirin 81 mg 10/26/20 09:00 10/27/20 08:37 Aspirin Chewable 81 Mg Tab PO 81 mg DAILY HARINI Administration Atorvastatin Calcium 10 mg 10/26/20 09:00 10/27/20 08:37 Atorvastatin Calcium 10 Mg Tab PO 10 mg DAILY HARINI Administration Calcium/Vitamin D 1 tab 10/26/20 09:00 10/27/20 08:37 Calcium Carbonate 600 Mg + Vit D Tab PO 1 tab DAILY HARINI Administration Cholecalciferol 1,000 units 10/26/20 09:00 10/27/20 08:37 Cholecalciferol 1,000 Units (25 Mcg) Tab PO 1,000 units DAILY HARINI Administration Lisinopril 10 mg 10/26/20 21:00 10/27/20 09:40 Lisinopril 10 Mg Tab PO Not Given BID HARINI Nebivolol 5 mg 10/26/20 09:00 10/27/20 09:40 Nebivolol Hcl 5 Mg Tab PO Not Given DAILY HARINI Ondansetron HCl 4 mg 10/25/20 15:01 10/26/20 09:06 Ondansetron Pf 4 Mg/2 Ml Vial IVP 4 mg Q6H PRN Administration Nausea/Vomiting Pantoprazole Sodium 40 mg 10/26/20 21:00 10/27/20 08:37 Pantoprazole 40 Mg Tab PO 40 mg BID HARINI Administration Prednisone 5 mg 10/26/20 09:00 10/27/20 08:37 Prednisone 5 Mg Tab PO 5 mg DAILY HARINI Administration - Exam General Appearance: awake alert Eye: PERRL, anicteric sclera ENT: no oropharyngeal lesions, moist mucosa Neck: supple, no JVD Heart: RRR, no murmur Respiratory: no wheezes, no rales, rhonchi Gastrointestinal: soft, non-tender, non-distended, normal bowel sounds Extremities: no cyanosis, no edema Neurological: cranial nerve grossly intact, no focal deficits Psychiatric: normal affect, A&O x 3 Hosp A/P (1) AMS (altered mental status) Code(s): R41.82 - ALTERED MENTAL STATUS, UNSPECIFIED Status: Resolved (2) Syncope Code(s): R55 - SYNCOPE AND COLLAPSE Status: Resolved Qualifiers: Syncope type: unspecified Qualified Code(s): R55 - Syncope and collapse (3) Epigastric pain Code(s): R10.13 - EPIGASTRIC PAIN Status: Acute (4) HTN (hypertension) Code(s): I10 - ESSENTIAL (PRIMARY) HYPERTENSION Status: Chronic Qualifiers: Hypertension type: essential hypertension Qualified Code(s): I10 - Essential (primary) hypertension (5) Dyslipidemia Code(s): E78.5 - HYPERLIPIDEMIA, UNSPECIFIED Status: Chronic (6) Hx of pulmonary embolus Code(s): Z86.711 - PERSONAL HISTORY OF PULMONARY EMBOLISM Status: Chronic (7) H/O systemic lupus erythematosus (SLE) Code(s): M32.9 - SYSTEMIC LUPUS ERYTHEMATOSUS, UNSPECIFIED Status: Chronic - Plan for stress test today ekg, imaging and labs were reviewed, no sign of stemi or nstemi continue asp, lipitor, lovenox, bystolic, lisinopril and prednisone ef is normal, bnp is around 830 may need event monitor for dc plan. hemostable to ambulate as tolerated likely has chronic anemia
--- NOTE | 2020-10-27 14:52 | NM ---
Nuclear medicine Cardiac myocardial perfusion SPECT Ejection fraction study Wall motion cine: DATE:10/27/2020 8:00 AM INDICATION: Chest pain TECHNIQUE: Number of days:2 Rest Study: Technetium 99m-sestamibi (Cardiolite) dose:9.2 mCi Stress study: Technetium 99m-sestamibi (Cardiolite) dose:27 mCi FINDINGS: Cardiac (myocardial perfusion) SPECT There is a mild-sized region of moderately reduced activity involving the mid to apical inferior late ral left ventricular wall. Mild size region of moderately reduced activity is also seen involving the mid to apical anterior septal wall. Ejection fraction study Left ventricular EF = 72% Wall motion cine There is diminished wall thickening and hypokinesis involving the inferior lateral left ventricular w all. IMPRESSION: Abnormal myocardial perfusion evaluation 1. 2 separate regions of moderate reduced activity on the stress images that improve with the rest im ages suspicious for reversible myocardial ischemia. The most conspicuous is seen within the mid to apical inferior lateral left ventricular wall where there is also diminished wall thickening and hypo kinesis on the gated images. The other additional region of abnormal tracer accumulation is seen within the mid to apical anterior septal wall. 2. Estimated LVEF of 72%.
[2020-10-27] MEDS ORDERED: Enoxaparin Sodium 40 MG/0.4 ML SYRINGE SC SCH (21:00)
[2020-10-28 05:13] LABS: #Basophils 0.1 thou/uL (0.0-0.2); #Eosinphils 0.2 thou/uL (0.0-0.7); #Lymphocytes 2.1 thou/uL (1.20-3.40); #Neutrophils 3.7 thou/uL (1.40-6.50); %Basophils 1.2 % (0.0-1.0); %Eosinophils 2.6 % (0.0-10.0); %Lymphocytes 30.1 % (21.0-51.0); %Monocytes 14.4 % (0.0-10.0); %Neutrophils 51.9 % (42.0-75.0); Hemoglobin 9.6 g/dL (12.0-16.0); Mean Corpuscular HGB CONC 30.2 g/dL (32.0-36.0); Mean Corpuscular Hemoglobin 23.6 pg (27.0-31.0); Mean Platelet Volume 8.6 fL (7.4-10.4); Platelet Count 266 thou/uL (130-400); RBC Distribution Width 18.8 % (11.5-14.5); Red Blood Cell (RBC) Count 4.07 mill/uL (4.20-5.40)
[2020-10-28 05:26] LABS: INR-International Normal Ratio 1.3; PTT 38.8 sec (22.9-36.1); Prothrombin Time 16.1 sec (12.0-14.7)
[2020-10-28 05:33] LABS: Anion Gap 11 mmol/L (10-20); BUN (Urea Nitrogen) 8 mg/dL (9.8-20.1); Calc. Creatinine Clearance 62 mL/min (70-130); Calcium 8.3 mg/dL (7.8-10.44); Carbon Dioxide 26 mmol/L (23-31); Chloride 110 mmol/L (98-107); Glucose 83 mg/dL (83-110); Potassium 3.1 mmol/L (3.5-5.1); Sodium 144 mmol/L (136-145)
[2020-10-28] MEDS: Sodium Chloride 0.45% 1,000 ML IV SCH ×2 (05:51→20:56)
[2020-10-28] MEDS ORDERED: NIFEdipine XL 30 MG TAB PO SCH (09:00)
[2020-10-28] MEDS ORDERED: Communication Order-Pharmacy FS SCH (09:15)
[2020-10-28] MEDS ORDERED: Iopamidol 370 76% 100 ML VIAL ONE (09:27)
[2020-10-28] MEDS ORDERED: Potassium Chloride 20 MEQ in Premix Bag 1 BAG IVPB SCH (10:00)
[2020-10-28] MEDS ORDERED: hydrALAZINE 20 MG/ML VIAL ONE (11:39)
[2020-10-28] MEDS ORDERED: Acetaminophen/Codeine 30-300mg Tablet PO PRN ×2 (12:12)
[2020-10-28] MEDS ORDERED: Sodium Chloride 0.9% 200 ML IV PRN (12:12)
[2020-10-28] MEDS ORDERED: Metoprolol Tartrate 5 MG/5 ML VIAL ONE (12:12)
[2020-10-28] MEDS ORDERED: Nitroglycerin 0.4 MG TAB (25 Tab Bottle) SL PRN (12:12)
[2020-10-28] MEDS: Lisinopril 10 MG TAB PO SCH ×2 (13:08→20:56)
[2020-10-28] MEDS: Cholecalciferol 1,000 UNITS (25 MCG) TAB PO SCH (13:08)
[2020-10-28] MEDS: Nebivolol HCl 5 MG TAB PO SCH (13:08)
[2020-10-28] MEDS: Aspirin Chewable 81 MG TAB PO SCH (13:09)
[2020-10-28] MEDS: Atorvastatin Calcium 10 MG TAB PO SCH (13:09)
[2020-10-28] MEDS: predniSONE 5 MG TAB PO SCH (13:13)
[2020-10-28] MEDS: Calcium Carbonate 600 MG + Vit D TAB PO SCH (13:13)
--- NOTE | 2020-10-28 13:31 | PDOC.HOSPP ---
- Subjective Encounter Date: 10/28/20 Encounter Time: 10:30 Subjective: no chest pain or palp is npo for cath - Objective Vital Signs & Weight: Vital Signs (12 hours) Temp Pulse Resp BP BP Pulse Ox 10/28/20 13:08 137/59 L 10/28/20 08:21 97 10/28/20 07:22 98.8 F 72 16 158/69 H 97 10/28/20 04:00 98.7 F 71 18 165/60 H 93 L Weight Weight 120 lb 6.4 oz Most Recent Monitor Data Heart Rate from ECG 75 NIBP 167/70 NIBP BP-Mean 102 Respiration from ECG 19 SpO2 93 I&O: 10/27/20 10/28/20 10/29/20 06:59 06:59 06:59 Intake Total 2147.6 1200 Output Total 450 Balance 1697.6 1200 Result Diagrams: 10/28/20 04:53 10/28/20 04:53 Hospitalist ROS - Medication Medications: Active Medications Generic Name Dose Route Start Last Admin Trade Name Freq PRN Reason Stop Dose Admin Acetaminophen 650 mg 10/25/20 15:01 10/26/20 20:43 Acetaminophen 325 Mg Tab PO 650 mg Q4H PRN Administration Headache/Fever/Mild Pain (1-3) Aspirin 81 mg 10/26/20 09:00 10/28/20 13:09 Aspirin Chewable 81 Mg Tab PO 81 mg DAILY HARINI Administration Atorvastatin Calcium 10 mg 10/26/20 09:00 10/28/20 13:09 Atorvastatin Calcium 10 Mg Tab PO 10 mg DAILY HARINI Administration Calcium/Vitamin D 1 tab 10/26/20 09:00 10/28/20 13:13 Calcium Carbonate 600 Mg + Vit D Tab PO 1 tab DAILY HARINI Administration Cholecalciferol 1,000 units 10/26/20 09:00 10/28/20 13:08 Cholecalciferol 1,000 Units (25 Mcg) Tab PO 1,000 units DAILY HARINI Administration Sodium Chloride 1,000 mls @ 75 mls/hr 10/28/20 06:00 10/28/20 05:51 1/2 Normal Saline IV 1,000 mls .[id number] HARINI Administration Lisinopril 10 mg 10/26/20 21:00 10/28/20 13:08 Lisinopril 10 Mg Tab PO 10 mg BID HARINI Administration Nebivolol 5 mg 10/26/20 09:00 10/28/20 13:08 Nebivolol Hcl 5 Mg Tab PO 5 mg DAILY HARINI Administration Ondansetron HCl 4 mg 10/25/20 15:01 10/26/20 09:06 Ondansetron Pf 4 Mg/2 Ml Vial IVP 4 mg Q6H PRN Administration Nausea/Vomiting Pantoprazole Sodium 40 mg 10/26/20 21:00 10/28/20 13:13 Pantoprazole 40 Mg Tab PO 40 mg BID HARINI Administration Prednisone 5 mg 10/26/20 09:00 10/28/20 13:13 Prednisone 5 Mg Tab PO 5 mg DAILY HARINI Administration - Exam General Appearance: awake alert Eye: PERRL, anicteric sclera ENT: no oropharyngeal lesions, dry oral mucosa Neck: supple, no JVD Heart: RRR, no murmur Respiratory: no wheezes, no rales Gastrointestinal: soft, non-tender, non-distended, normal bowel sounds Extremities: no cyanosis, no edema Neurological: cranial nerve grossly intact, no focal deficits Psychiatric: normal affect, A&O x 3 Hosp A/P (1) AMS (altered mental status) Code(s): R41.82 - ALTERED MENTAL STATUS, UNSPECIFIED Status: Resolved (2) Syncope Code(s): R55 - SYNCOPE AND COLLAPSE Status: Resolved Qualifiers: Syncope type: unspecified Qualified Code(s): R55 - Syncope and collapse (3) Epigastric pain Code(s): R10.13 - EPIGASTRIC PAIN Status: Resolved (4) HTN (hypertension) Code(s): I10 - ESSENTIAL (PRIMARY) HYPERTENSION Status: Chronic Qualifiers: Hypertension type: essential hypertension Qualified Code(s): I10 - Es sential (primary) hypertension (5) Dyslipidemia Code(s): E78.5 - HYPERLIPIDEMIA, UNSPECIFIED Status: Chronic (6) Hx of pulmonary embolus Code(s): Z86.711 - PERSONAL HISTORY OF PULMONARY EMBOLISM Status: Chronic (7) H/O systemic lupus erythematosus (SLE) Code(s): M32.9 - SYSTEMIC LUPUS ERYTHEMATOSUS, UNSPECIFIED Status: Chronic - Plan Had cardiac cath today showing normal coronaries with no flow limiting disease stress test was abnormal with reperfusion defects ekg, imaging and labs were reviewed, no sign of stemi or nstemi continue asp, lipitor, lovenox, bystolic, lisinopril and prednisone ef is normal, bnp is around 830 may need event monitor for dc plan. hemostable to ambulate as tolerated likely has chronic anemia
--- NOTE | 2020-10-28 15:16 | EKG ---
Test Reason : STAT Blood Pressure : / mmHG Vent. Rate : 061 BPM Atrial Rate : 061 BPM P-R Int : 106 ms QRS Dur : 080 ms QT Int : 460 ms P-R-T Axes : 012 032 041 degrees QTc Int : 463 ms Sinus rhythm with short MS Nonspecific T wave abnormality Abnormal ECG When compared with ECG of 25-OCT-2020 11:51, (Unconfirmed) MS interval has decreased Nonspecific T wave abnormality, improved in Lateral leads Confirmed by MEGAN DYER, DR. Davis ([id number]) on 10/28/2020 3:16:35 PM Referred By: NUNU Confirmed By:DR. Ryan GUZMAN MD
[2020-10-28] MEDS ORDERED: Warfarin Sodium 2 MG TAB PO SCH (17:00)
[2020-10-28] MEDS: Acetaminophen 325 MG TAB PO PRN (20:56)
[2020-10-29] MEDS: Nebivolol HCl 5 MG TAB PO SCH (08:36)
[2020-10-29] MEDS: Aspirin Chewable 81 MG TAB PO SCH (08:36)
[2020-10-29] MEDS: Calcium Carbonate 600 MG + Vit D TAB PO SCH (08:37)
[2020-10-29] MEDS: Atorvastatin Calcium 10 MG TAB PO SCH (08:37)
[2020-10-29] MEDS: Lisinopril 10 MG TAB PO SCH ×2 (08:37→21:08)
[2020-10-29] MEDS: predniSONE 5 MG TAB PO SCH (08:37)
[2020-10-29] MEDS: Cholecalciferol 1,000 UNITS (25 MCG) TAB PO SCH (08:37)
[2020-10-29 08:39] LABS: Anion Gap 11 mmol/L (10-20); BUN (Urea Nitrogen) 6 mg/dL (9.8-20.1); Calc. Creatinine Clearance 66 mL/min (70-130); Calcium 8.5 mg/dL (7.8-10.44); Carbon Dioxide 28 mmol/L (23-31); Chloride 109 mmol/L (98-107); Glucose 85 mg/dL (83-110); Potassium 3.6 mmol/L (3.5-5.1); Sodium 144 mmol/L (136-145)
[2020-10-29 08:40] LABS: #Basophils 0.1 thou/uL (0.0-0.2); #Eosinphils 0.2 thou/uL (0.0-0.7); #Lymphocytes 1.7 thou/uL (1.20-3.40); #Neutrophils 3.8 thou/uL (1.40-6.50); %Basophils 1.2 % (0.0-1.0); %Eosinophils 2.9 % (0.0-10.0); %Lymphocytes 24.5 % (21.0-51.0); %Monocytes 14.6 % (0.0-10.0); %Neutrophils 56.8 % (42.0-75.0); Hemoglobin 10.1 g/dL (12.0-16.0); INR-International Normal Ratio 1.1; Mean Corpuscular HGB CONC 32.1 g/dL (32.0-36.0); Mean Corpuscular Hemoglobin 25.2 pg (27.0-31.0); Mean Corpuscular Volume 78.6 fL (78.0-98.0); Mean Platelet Volume 7.9 fL (7.4-10.4); PTT 30.9 sec (22.9-36.1); Platelet Count 250 thou/uL (130-400); Prothrombin Time 14.4 sec (12.0-14.7); RBC Distribution Width 18.7 % (11.5-14.5); Red Blood Cell (RBC) Count 4.01 mill/uL (4.20-5.40); White Blood Cell (WBC) Count 6.7 thou/uL (4.8-10.8)
[2020-10-29 10:16] LABS: Hypochromia SLIGHT = 6-15 cells (100X) (0-5/hpf); MDiff Complete? YES; Microcytosis SLIGHT = 6-15 cells (100X) (0-5/hpf); Ovalocytes SLIGHT = 2-5 cells (100X) (0-1/hpf); Platelet Morphology Comment Appears Adequate; Polychromasia SLIGHT = 2-3 cells (100X) (0-2/hpf)
[2020-10-29] MEDS: Sodium Chloride 0.45% 1,000 ML IV SCH (11:14)
--- NOTE | 2020-10-29 11:58 | ULT ---
ULTRASOUND RIGHT GROIN WITH DUPLEX EXAM FOR PSEUDOANEURYSM EVALUATION: INDICATION: Post catheterization. Assess for pseudoaneurysm. FINDINGS: The right common femoral artery and femoral vein are imaged and appear unremarkable. No evidence of hematoma. No evidence of pseudoaneurysm. Color Doppler and spectral analysis demonstrate normal blo od flow. IMPRESSION: No evidence of pseudoaneurysm. POS: AGW
--- NOTE | 2020-10-29 14:41 | PDOC.HOSPP ---
- Subjective Encounter Date: 10/29/20 Encounter Time: 10:15 Subjective: no groin pain, is able to move her extremities at bedside - Objective Vital Signs & Weight: Vital Signs (12 hours) Temp Pulse Resp BP BP BP Pulse Ox 10/29/20 11:44 98.6 F 69 20 134/53 L 97 10/29/20 08:00 98 10/29/20 07:30 98.5 F 65 20 168/60 H 98 10/29/20 03:24 98.3 F 66 16 173/73 H 97 Weight Weight 120 lb 6.4 oz Most Recent Monitor Data Heart Rate from ECG 75 NIBP 167/70 NIBP BP-Mean 102 Respiration from ECG 19 SpO2 93 I&O: 10/28/20 10/29/20 10/30/20 06:59 06:59 06:59 Intake Total 1200 1842 Balance 1200 1842 Result Diagrams: 10/29/20 07:58 10/29/20 07:58 Hospitalist ROS - Medication Medications: Active Medications Generic Name Dose Route Start Last Admin Trade Name Freq PRN Reason Stop Dose Admin Acetaminophen 650 mg 10/25/20 15:01 10/28/20 20:56 Acetaminophen 325 Mg Tab PO 650 mg Q4H PRN Administration Headache/Fever/Mild Pain (1-3) Aspirin 81 mg 10/26/20 09:00 10/29/20 08:36 Aspirin Chewable 81 Mg Tab PO 81 mg DAILY HARINI Administration Atorvastatin Calcium 10 mg 10/26/20 09:00 10/29/20 08:37 Atorvastatin Calcium 10 Mg Tab PO 10 mg DAILY HARINI Administration Calcium/Vitamin D 1 tab 10/26/20 09:00 10/29/20 08:37 Calcium Carbonate 600 Mg + Vit D Tab PO 1 tab DAILY HARINI Administration Cholecalciferol 1,000 units 10/26/20 09:00 10/29/20 08:37 Cholecalciferol 1,000 Units (25 Mcg) Tab PO 1,000 units DAILY HARINI Administration Sodium Chloride 1,000 mls @ 75 mls/hr 10/28/20 06:00 10/29/20 11:14 1/2 Normal Saline IV Not Given .[id number] HARINI Isosorbide Mononitrate 30 mg 10/29/20 09:00 10/29/20 08:37 Isosorbide Mononitrate Er 30 Mg Tab PO 30 mg DAILY HARINI Administration Lisinopril 10 mg 10/26/20 21:00 10/29/20 08:37 Lisinopril 10 Mg Tab PO 10 mg BID HARINI Administration Nebivolol 5 mg 10/26/20 09:00 10/29/20 08:36 Nebivolol Hcl 5 Mg Tab PO 5 mg DAILY HARINI Administration Ondansetron HCl 4 mg 10/25/20 15:01 10/26/20 09:06 Ondansetron Pf 4 Mg/2 Ml Vial IVP 4 mg Q6H PRN Administration Nausea/Vomiting Pantoprazole Sodium 40 mg 10/26/20 21:00 10/29/20 08:36 Pantoprazole 40 Mg Tab PO 40 mg BID HARINI Administration Prednisone 5 mg 10/26/20 09:00 10/29/20 08:37 Prednisone 5 Mg Tab PO 5 mg DAILY HARINI Administration - Exam General Appearance: awake alert Eye: PERRL, anicteric sclera ENT: no oropharyngeal lesions, moist mucosa Neck: supple, no JVD Heart: RRR, no murmur Respiratory: no wheezes, no rales Gastrointestinal: soft, non-tender, non-distended, normal bowel sounds Extremities: no cyanosis, no edema Extremities - other findings: right groin and upper thigh bruising, no fluctuant swelling Neurological: cranial nerve grossly intact, no focal deficits Psychiatric: normal affect, A&O x 3 Hosp A/P (1) AMS (altered mental status) Code(s): R41.82 - ALTERED MENTAL STATUS, UNSPECIFIED Status: Resolved (2) Syncope Code(s): R55 - SYNCOPE AND COLLAPSE Status: Resolved Qualifiers: Syncope type: unspecified Qualified Code(s): R55 - Syncope and collapse (3) Epigastric pain Code(s): R10.13 - EPIGASTRIC PAIN Status: Resolved (4) HTN (hypertension) Code(s): I10 - ESSENTIAL (PRIMARY) HYPERTENSION Status: Chronic Qualifiers: Hypertension type: essential hypertension Qualified Code(s): I10 - Essential (primary) hypertension (5) Dyslipidemia Code(s): E78.5 - HYPERLIPIDEMIA, UNSPECIFIED Status: Chronic (6) Hx of pulmonary embolus Code(s): Z86.711 - PERSONAL HISTORY OF PULMONARY EMBOLISM Status: Chronic (7) H/O systemic lupus erythematosus (SLE) Code(s): M32.9 - SYSTEMIC LUPUS ERYTHEMATOSUS, UNSPECIFIED Status: Chronic - Plan Had cardiac cath on 10/28 showing normal coronaries with no flow limiting disease stress test was abnormal with reperfusion defects 10/27 ekg, imaging and labs were reviewed, no sign of stemi or nstemi continue asp, lipitor, lovenox, bystolic, lisinopril and prednisone ef is normal, bnp is around 830 hemostable to ambulate as tolerated likely has chronic anemia has tolerated bystolic well here, is a bit worried all her symptoms started from taking bystolic prescribed in september by Rebecca ayala plan in am if cleared by cardiology usg right groin shows no evidence of hematoma or pseudoaneurysm
[2020-10-29] MEDS: Acetaminophen 325 MG TAB PO PRN (21:08)
[2020-10-30] MEDS ORDERED: Mag-Al 1200 mg/1200 mg/30 ML UDCUP PO SCH (09:30)
[2020-10-30] MEDS: Calcium Carbonate 600 MG + Vit D TAB PO SCH (09:40)
[2020-10-30] MEDS: Nebivolol HCl 5 MG TAB PO SCH (09:40)
[2020-10-30] MEDS: predniSONE 5 MG TAB PO SCH (09:40)
[2020-10-30] MEDS: Cholecalciferol 1,000 UNITS (25 MCG) TAB PO SCH (09:40)
[2020-10-30] MEDS: Atorvastatin Calcium 10 MG TAB PO SCH (09:40)
[2020-10-30] MEDS: Lisinopril 10 MG TAB PO SCH (09:40)
[2020-10-30] MEDS: Aspirin Chewable 81 MG TAB PO SCH (09:41)
[2020-10-30] MEDS ORDERED: Calcium Carbonate 500 MG ChewTAB PO PRN (09:43)
--- NOTE | 2020-10-30 12:46 | PDOC.HOSPP ---
- Subjective Encounter Date: 10/30/20 Encounter Time: 09:45 Subjective: feels a bit nauseous this am no chest pain or sob no pain in her right groin cath site at bedside - Objective Vital Signs & Weight: Vital Signs (12 hours) Temp Pulse Pulse Pulse Resp BP BP 10/30/20 11:34 98.2 F 62 16 10/30/20 09:40 178/81 H 10/30/20 08:50 70 70 154/70 H 10/30/20 07:32 98.2 F 72 20 10/30/20 05:09 10/30/20 04:00 97.5 F L 67 18 BP BP Pulse Ox 10/30/20 11:34 143/55 H 94 L 10/30/20 09:40 10/30/20 08:50 178/81 H 10/30/20 07:32 181/67 H 97 10/30/20 05:09 97 10/30/20 04:00 191/75 H 97 Weight Weight 120 lb 6.4 oz Most Recent Monitor Data Heart Rate from ECG 75 NIBP 167/70 NIBP BP-Mean 102 Respiration from ECG 19 SpO2 93 I&O: 10/29/20 10/30/20 10/31/20 06:59 06:59 06:59 Intake Total 1842 230 Balance 1842 230 Result Diagrams: 10/29/20 07:58 10/29/20 07:58 Hospitalist ROS - Medication Medications: Active Medications Generic Name Dose Route Start Last Admin Trade Name Freq PRN Reason Stop Dose Admin Acetaminophen 650 mg 10/25/20 15:01 10/29/20 21:08 Acetaminophen 325 Mg Tab PO 650 mg Q4H PRN Administration Headache/Fever/Mild Pain (1-3) Aspirin 81 mg 10/26/20 09:00 10/30/20 09:41 Aspirin Chewable 81 Mg Tab PO 81 mg DAILY HARINI Administration Atorvastatin Calcium 10 mg 10/26/20 09:00 10/30/20 09:40 Atorvastatin Calcium 10 Mg Tab PO 10 mg DAILY HARINI Administration Calcium/Vitamin D 1 tab 10/26/20 09:00 10/30/20 09:40 Calcium Carbonate 600 Mg + Vit D Tab PO 1 tab DAILY HARINI Administration Cholecalciferol 1,000 units 10/26/20 09:00 10/30/20 09:40 Cholecalciferol 1,000 Units (25 Mcg) Tab PO 1,000 units DAILY HARINI Administration Isosorbide Mononitrate 30 mg 10/29/20 09:00 10/30/20 09:40 Isosorbide Mononitrate Er 30 Mg Tab PO 30 mg DAILY HARINI Administration Lisinopril 10 mg 10/26/20 21:00 10/30/20 09:40 Lisinopril 10 Mg Tab PO 10 mg BID HARINI Administration Nebivolol 5 mg 10/26/20 09:00 10/30/20 09:40 Nebivolol Hcl 5 Mg Tab PO 5 mg DAILY HARINI Administration Ondansetron HCl 4 mg 10/25/20 15:01 10/26/20 09:06 Ondansetron Pf 4 Mg/2 Ml Vial IVP 4 mg Q6H PRN Administration Nausea/Vomiting Pantoprazole Sodium 40 mg 10/26/20 21:00 10/30/20 09:40 Pantoprazole 40 Mg Tab PO 40 mg BID HARINI Administration Prednisone 5 mg 10/26/20 09:00 10/30/20 09:40 Prednisone 5 Mg Tab PO 5 mg DAILY HARINI Administration - Exam General Appearance: awake alert Eye: PERRL, anicteric sclera ENT: no oropharyngeal lesions, moist mucosa Neck: supple, no JVD Heart: RRR, no murmur Respiratory: no wheezes, no rales, no ronchi Gastrointestinal: soft, non-tender, non-distended, normal bowel sounds Extremities: no cyanosis, no edema Neurological: cranial nerve grossly intact, no focal deficits Psychiatric: normal affect, A&O x 3 Hosp A/P (1) AMS (altered mental status) Code(s): R41.82 - ALTERED MENTAL STATUS, UNSPECIFIED Status: Resolved (2) Syncope Code(s): R55 - SYNCOPE AND COLLAPSE Status: Resolved Qualifiers: Syncope type: unspecified Qualified Code(s): R55 - Syncope and collapse (3) Epigastric pain Code(s): R10.13 - EPIGASTRIC PAIN Status: Resolved (4) HTN (hypertension) Code(s): I10 - ESSENTIAL (PRIMARY) HYPERTENSION Status: Chronic Qualifiers: Hypertension type: essential hypertension Qualified Code(s): I10 - Essential (primary) hypertension (5) Dyslipidemia Code(s): E78.5 - HYPERLIPIDEMIA, UNSPECIFIED Status: Chronic (6) Hx of pulmonary embolus Code(s): Z86.711 - PERSONAL HISTORY OF PULMONARY EMBOLISM Status: Chronic (7) H/O systemic lupus erythematosus (SLE) Code(s): M32.9 - SYSTEMIC LUPUS ERYTHEMATOSUS, UNSPECIFIED Status: Chronic - Plan Had cardiac cath on 10/28 showing normal coronaries with no flow limiting disease stress test was abnormal with reperfusion defects 10/27 ekg, imaging and labs were reviewed, no sign of stemi or nstemi continue asp, lipitor, lovenox, bystolic, lisinopril and prednisone ef is normal, bnp is around 830 hemostable to ambulate as tolerated likely has chronic anemia has tolerated bystolic well here, is a bit worried all her symptoms started from taking bystolic prescribed in september by Dr.Hilner ayala plan home anytime if cleared by cardiology usg right groin shows no evidence of hematoma or pseudoaneurysm
[2020-10-30] MEDS ORDERED: Calcium Carbonate 500 MG ChewTAB PO SCH (13:00)
[2020-10-30] MEDS ORDERED: Lisinopril 10 MG TAB PO SCH (13:19)
[2020-10-30] MEDS ORDERED: Lisinopril 20 MG TAB PO SCH ×2 (13:30→21:00)
[2020-10-30] MEDS ORDERED: Carvedilol 3.125 MG TAB PO SCH (17:00)
[2020-10-30] MEDS ORDERED: Warfarin Sodium 1 MG TAB PO SCH (17:00)
[2020-10-31 07:40] VITALS: BP 125/53; TEMP 98.2
[2020-10-31] MEDS ORDERED: Carvedilol 3.125 MG TAB PO SCH (08:00)
[2020-10-31] MEDS: Calcium Carbonate 600 MG + Vit D TAB PO SCH (08:45)
[2020-10-31] MEDS: Aspirin Chewable 81 MG TAB PO SCH (08:45)
[2020-10-31] MEDS: Atorvastatin Calcium 10 MG TAB PO SCH (08:45)
[2020-10-31] MEDS: Cholecalciferol 1,000 UNITS (25 MCG) TAB PO SCH (08:45)
[2020-10-31] MEDS: predniSONE 5 MG TAB PO SCH (08:46)
[2020-10-31] MEDS ORDERED: Lisinopril 20 MG TAB PO SCH (09:00)
--- NOTE | 2020-10-31 16:24 | DIS ---
DATE OF ADMISSION: 10/25/2020 DATE OF DISCHARGE: 10/31/2020 DISCHARGE DISPOSITION: Home. PRIMARY DISCHARGE DIAGNOSES: 1. Dizziness. 2. Syncope. 3. Epigastric and retrosternal chest pain, noncardiac. 4. Hypotension. 5. Dyslipidemia. 6. History of pulmonary embolus. 7. History of lupus. PROCEDURES DONE DURING HOSPITALIZATION: Cardiac catheterization done on 10/28 showed normal coronaries with no flow-limiting disease. BNP 830. Echo with 2D Doppler showed ejection fraction of 55% to 60%. Nuclear stress test done showed ejection fraction of 72%. There was diminished wall thickening and hypokinesis involving the inferior lateral left ventricular wall. There were 2 separate regions of moderate reduced activity on the stress images that improved with rest images suspicious for reversible myocardial ischemia. The most conspicuous is seen within the mid to apical inferior lateral left ventricular wall, where there is also diminished wall thickening and hypokinesis on the gated images. The other additional region of abnormal tracer accumulation was seen in the mid to apical anterior septal wall. MRI of brain showed no restricted diffusion, no acute infarct. Age-appropriate atrophy was seen. Chronic small-vessel ischemic changes of white matter was seen. CT angio of chest showed no evidence of PE. Small hiatal hernia was seen. There is incidental finding of breast calcifications and prominent axillary lymph nodes. Right groin soft tissue ultrasound done showed no evidence of pseudoaneurysm at the cardiac catheterization site. DISCHARGE MEDICATIONS: 1. Boniva 150 mg p.o. once monthly. 2. Vitamin D3 with calcium 1 tablet daily. 3. Gabapentin 100 mg twice daily. 4. Lasix 20 mg daily. 5. Atorvastatin 10 mg daily. 6. Rizatriptan p.r.n. for migraine. 7. Omeprazole 20 mg p.o. daily. 8. Prednisone 5 mg p.o. daily for lupus. 9. Xanax 0.5 mg p.o. daily p.r.n. for anxiety. 10. Carvedilol 3.125 mg p.o. twice daily. 11. Imdur extended release 30 mg p.o. daily. 12. Lisinopril 20 mg twice daily. ALLERGIES: ALLERGIC TO PENICILLIN, PROPOXYPHENE, AND ACETAMINOPHEN. INPATIENT CONSULTS: 1. Dr. Valdez for Cardiology. 2. Dr. Nova for Pulmonology. DISCHARGE PLAN: The patient to follow up with Dr. Walls in 1 week. BRIEF COURSE DURING HOSPITALIZATION: The patient initially got admitted on the after she felt very weak and passed out. In view of this history, the patient was admitted to telemetry. The patient had loss of consciousness for up to a minute or so. Also, the patient continued to complain of chest pain during her initial 24 hours and the patient was transferred to ICU and was placed on nitroglycerin drip. She has had consultations with Dr. Valdez for Cardiology and Dr. Nova for Pulmonology. She has had troponin x3 done with a troponin peaking up to 0.04. COVID-19 PCR was not detected. Urine drug screen was negative. As the patient remained stable with no sign of ST-T wave changes, she was transferred to telemetry. She had MRI of brain done, which did not reveal any acute infarct or bleed. Nuclear stress test done showed possible reversible ischemia. She has had cardiac catheterization done by Dr. Valdez, which showed no evidence of coronary artery disease. The patient developed ecchymosis and bruising around the cardiac catheterization site in the right femoral artery groin site and a soft tissue ultrasound done showed no evidence of pseudoaneurysm. Her medications were optimized. Her Bystolic was discontinued as the patient and were not comfortable taking it and was switched over to carvedilol. She still has mild dizziness upon standing from lying down position and has been advised to have outpatient rehab at the [facility]zy clinic. She was volume hydrated despite which she continues to have this. She has otherwise remained hemodynamically stable and will be shortly discharged home. The patient and were given a chance to go to inpatient rehab or swing bed, which they have declined. They also did not want Home Health to come during COVID time. The will try to take her to [facility] outpatient [facility] if it is feasible for him to drive. She is ambulating up to 200 feet. She has a rolling walker at home as well. Please note, I have seen and examined the patient on the day of discharge. Her coumadin was held due to bruising at the cath site and she may resume in 2 weeks if needed per PCP advice. Her CT angio did not show pulmonary embolus here. Job ID: [id number] [facility]
--- NOTE | 2020-11-03 22:31 | EKG ---
Test Reason : Blood Pressure : / mmHG Vent. Rate : 069 BPM Atrial Rate : 069 BPM P-R Int : 088 ms QRS Dur : 090 ms QT Int : 420 ms P-R-T Axes : 009 017 188 degrees QTc Int : 450 ms Sinus rhythm with short MA Nonspecific T wave abnormality Abnormal ECG When compared with ECG of 25-OCT-2020 23:50, (Unconfirmed) Sinus rhythm has replaced Junctional rhythm ST no longer depressed in Inferior leads QT has shortened Confirmed by Mathieu STONE ([id number]) on 11/03/2020 10:31:26 PM Referred By: IZABELLA Confirmed By:Mathieu STONE
--- NOTE | 2020-11-04 04:12 | PQF ---
CLINICAL DOCUMENTATION CLARIFICATION FORM: Dear : Vin Crawford Date / Time: 11/04/20 04:11 Please exercise your independent, professional judgment in responding to the clarification form. Clinical indicators are provided on the bottom of this form for your review Please check appropriate box(es): Syncope Due to: [ ] Vasovagal [ ] Orthosthatic hypotension [ x ] Unknown etiology [ ] Other diagnosis, please specify [ ] Unable to determine Physician Signature: Date/Time: For continuity of documentation, please document condition throughout progress notes and discharge summary. Thank You. To be completed by CDI/Coding staff for physician review: Present Clinical Indicators - Signs / Symptoms / Labs Results and Location in Medical Record [x] passed out DS 10/31 [x] AMS ED Notes 10/25 [x] reports syncope ED Notes 10/25 [x] Confused HP 10/25 [x] Dizziness DS 10/31 [x] Syncope - ? orthosthatic hypotension Scanned PN [x] Syncope ? vasovagal Scanned PN Present Risk Factors Results and Location in Medical Record [x] 75 years old female ED Notes 10/25 [x] HTN ED Notes 10/25 [x] SLE HP 10/25 Present Treatments Results and Location in Medical Record [x] IVF JAN 10 [x] Lisopril 20mg Oral JAN 10 [x] Carvidelol 3.125mg Oral JAN 10 [x] LHC Cardiac cath 10/25 [x] Q4 neuro check 10/25 CDS/Hand Ironer Signature: Patrick Bowden Phone #: [phone] Date/Time: 11/04/20 This is a permanent part of the Medical Record [facility]
--- NOTE | 2020-11-04 04:14 | PQF ---
CLINICAL DOCUMENTATION CLARIFICATION FORM: Dear : Vin Crawford Date / Time:11/04/2020 04:13 Please exercise your independent, professional judgment in responding to the clarification form. Clinical indicators are provided on the bottom of this form for your review Please check appropriate box(es): [ ] Encephalopathy: Etiology: [ ] Metabolic [ ] Toxic [ ] Hypertensive [ ] Unspecified [ ] Other (please specify) [ x ] Transient Alteration of Awareness [ ] Other diagnosis, please specify [ ] Unable to determine Physician Signature: Date/Time: For continuity of documentation, please document condition throughout progress notes and discharge summary. Thank You. To be completed by CDI/Coding staff for physician review: Present Clinical Indicators - Signs / Symptoms / Labs Results and Location in Medical Record [x] AMS ED Notes 10/25 [x] CT of brain: no acute intracranial abnormality CT of brain 10/25 [x] reports syncope ED Notes 10/25 [x] Confused HP 10/25 [x] Dizziness DS 10/31 [x] BP: 10/2757=814/69 10/2955=242/60 10/3059=155/69 Vital Signs 10/27 Present Risk Factors Results and Location in Medical Record [x] 75 years old female ED Notes 10/25 [x] HTN ED Notes 10/25 [x] SLE HP 10/25 Present[x] Treatments Results and Location in Medical Record [x] IVF MAR 10/25 [x] Lisopril 20mg Oral JAN 10 [x] Carvidelol 3.125mg Oral JAN 10 [x] Cardiology Consult Consult 10/26 CDS/Area Operations Director Signature: Patrick Bowden Phone #: [phone] Date/Time: 11/04/20 This is a permanent part of the Medical Record [facility]
--- NOTE | 2020-11-04 04:16 | PQF ---
CLINICAL DOCUMENTATION CLARIFICATION FORM: Dear : Ho Valdez Date / Time: 11/04/19 04:16 Please exercise your independent, professional judgment in responding to the clarification form. Clinical indicators are provided on the bottom of this form for your review Please check appropriate box(es): [ ] Right groin ecchymosis/bruising as a complication of recent LHC [ ] Right groin ecchymosis/bruising not a complication of recent LHC [ ] Other diagnosis, please specify [ ] Unable to determine Physician Signature: Date/Time: For continuity of documentation, please document condition throughout progress notes and discharge summary. Thank You. To be completed by CDI/Coding staff for physician review: Present Clinical Indicators - Signs / Symptoms / Labs Results and Location in Medical Record [x] The patient developed ecchymosis and bruising around the cardiac catheterization site DS 10/31 [x] s/p LHC [employer] 10/25 [x] right groin soft tissue ultrasound done showed no evidence of pseudoaneurysm at the cardiac catheterization site DS 10/31 Present Risk Factors Results and Location in Medical Record [x] 75 years old female ED Notes 10/25 [x] HTN ED Notes 10/25 [x] SLE HP 10/25 [x] s/p LHC [employer]ist 10/25 Present Treatments Results and Location in Medical Record [x] IVF JAN 10 [x] Cardiology Consult Consult 10/26 [x] Warfarin 4mg Oral JAN 10 [x] Aspirin 81mg Oral JAN 10 [x] Lovenox 50mg subcu JAN 10 CDS/Work From Home Signature: Patrick Bowden Phone #: [phone] Date/Time: 11/04/20 This is a permanent part of the Medical Record [facility]
--- NOTE | 2020-11-05 15:38 | EKG ---
Test Reason : Blood Pressure : / mmHG Vent. Rate : 079 BPM Atrial Rate : 086 BPM P-R Int : 000 ms QRS Dur : 090 ms QT Int : 438 ms P-R-T Axes : 000 030 -10 degrees QTc Int : 502 ms Normal sinus rhythm Nonspecific ST and T wave abnormality Prolonged QT Abnormal ECG When compared with ECG of 25-OCT-2020 23:17, ST now depressed in Inferior leads Nonspecific T wave abnormality, worse in Anterolateral leads Confirmed by MEGAN DYER, SCalista ([id number]) on 11/05/2020 3:38:03 PM Referred By: JAUN Confirmed By:DR. Ryan GUZMAN MD
== END 2020-10-31 10:33 | disposition home or self-care (01) | DRG 287 ==
LOC: ERS 11:26 → 2NO 14:13 → CCU 10-26 00:33 → 2SE 10-26 13:17
PROVIDERS: ADMIT Internal Medicine; ATTEND Internal Medicine
PROC: 4A023N7 Measurement of Cardiac Sampling and Pressure, Left Heart, Percutaneous Approach (ICD-10-PCS; principal; 2020-10-28)
PROC: B2111ZZ Fluoroscopy of Multiple Coronary Arteries using Low Osmolar Contrast (ICD-10-PCS; 2020-10-28)
DX: R55 Syncope and collapse (principal); I16.1 Hypertensive emergency; R07.89 Other chest pain; M32.9 Systemic lupus erythematosus, unspecified; E78.5 Hyperlipidemia, unspecified; Z20.828 Contact with and (suspected) exposure to other viral communicable diseases; E78.00 Pure hypercholesterolemia, unspecified; I10 Essential (primary) hypertension; G43.909 Migraine, unspecified, not intractable, without status migrainosus; S70.11XA Contusion of right thigh, initial encounter; Z86.711 Personal history of pulmonary embolism; Z86.73 Personal history of transient ischemic attack (TIA), and cerebral infarction without residual deficits; Z90.710 Acquired absence of both cervix and uterus; Z88.5 Allergy status to narcotic agent; Z88.0 Allergy status to penicillin; Z88.8 Allergy status to other drugs, medicaments and biological substances; Z79.01 Long term (current) use of anticoagulants; Z79.52 Long term (current) use of systemic steroids; Z79.899 Other long term (current) drug therapy; Z85.72 Personal history of non-Hodgkin lymphomas; I95.9 Hypotension, unspecified
CPT/HCPCS: 36415; 36416; 70450; 70551; 71045; 71275; 78452; 80048; 80053; 80306; 80307; 81003; 82553; 83605; 83735; 83880; 84443; 84484; 85025; 85379; 85610; 85730; 87040; 87086; 87635; 93005; 93010; 93017; 93306; 93458; 93926; A9500; J0360; J1644; J1650; J2405; J2785; J3480; J7512; Q0162; Q9967; U0003

== ENCOUNTER 2021-02-16 14:58 | Inpatient (IN) | payer MEDICARE ==
[2021-02-16] MEDS ORDERED: Meclizine HCl 25 MG TAB ONE (15:53)
[2021-02-16 15:54] LABS: #Eosinphils 0.3 thou/uL (0.0-0.7); #Lymphocytes 3.5 thou/uL (1.20-3.40); #Monocytes 1.1 thou/uL (0.11-0.59); #Neutrophils 3.7 thou/uL (1.40-6.50); %Basophils 0.4 % (0.0-1.0); %Eosinophils 3.7 % (0.0-10.0); %Lymphocytes 40.1 % (21.0-51.0); %Neutrophils 42.7 % (42.0-75.0); Hemoglobin 10.2 g/dL (12.0-16.0); Mean Corpuscular HGB CONC 31.7 g/dL (32.0-36.0); Mean Corpuscular Hemoglobin 23.3 pg (27.0-31.0); Mean Corpuscular Volume 73.4 fL (78.0-98.0); Mean Platelet Volume 8.7 fL (7.4-10.4); Platelet Count 330 thou/uL (130-400); RBC Distribution Width 16.7 % (11.5-14.5); Red Blood Cell (RBC) Count 4.37 mill/uL (4.20-5.40); White Blood Cell (WBC) Count 8.7 thou/uL (4.8-10.8)
[2021-02-16] MEDS ORDERED: Lorazepam 2 MG/ML VIAL ONE (15:54)
[2021-02-16 16:03] LABS: INR-International Normal Ratio 3.6; PTT 51.5 sec (22.9-36.1); Prothrombin Time 36.8 sec (12.0-14.7)
[2021-02-16 16:07] LABS: ALT (SGPT) 19 U/L (8-55); AST (SGOT) 32 U/L (5-34); Albumin 3.6 g/dL (3.4-4.8); Alkaline Phosphatase 60 U/L (40-110); Anion Gap 13 mmol/L (10-20); BUN (Urea Nitrogen) 16 mg/dL (9.8-20.1); Bilirubin, Total 0.4 mg/dL (0.2-1.2); Calc. Creatinine Clearance 0 mL/min (70-130); Calcium 8.9 mg/dL (7.8-10.44); Carbon Dioxide 25 mmol/L (23-31); Chloride 105 mmol/L (98-107); Globulin 2.3 g/dL (2.4-3.5); Glucose 93 mg/dL (83-110); Magnesium 1.7 mg/dL (1.6-2.6); Potassium 3.6 mmol/L (3.5-5.1); Protein, Total 5.9 g/dL (5.8-8.1); Sodium 139 mmol/L (136-145)
[2021-02-16 16:21] LABS: Anisocytosis SLIGHT = 6-15 cells (100X) (0-5/hpf); Hypochromia SLIGHT = 6-15 cells (100X) (0-5/hpf); MDiff Complete? YES; Microcytosis SLIGHT = 6-15 cells (100X) (0-5/hpf); Ovalocytes SLIGHT = 2-5 cells (100X) (0-1/hpf); Platelet Morphology Comment Appears Adequate; Polychromasia SLIGHT = 2-3 cells (100X) (0-2/hpf)
[2021-02-16 16:39] LABS: Bacteria/HPF None Seen HPF (None Seen); Bilirubin Negative (Negative); Blood, Urine Trace (Negative); Clarity Clear (Clear); Glucose, Urine (Dipstick) Normal (Negative); Ketone, Urine Negative (Negative); Leukocyte Negative Leu/uL (Negative); Nitrite Negative (Negative); Protein, Urine (Dipstick) Negative (Neg-Trace); RBC/HPF 0-3 HPF (0-3); Specific Gravity, Urine 1.007 (1.002-1.036); Squamous Epithelial 0-3 HPF (0-3); Urobilinogen Normal mg/dL (Less than 2); WBC/HPF None Seen HPF (0-3)
[2021-02-16] MEDS ORDERED: Aspirin 325 MG TAB ONE (17:22)
[2021-02-16 18:13] LABS: SARS-CoV-2 NAA Rapid Test Not Detected (NotDetected)
[2021-02-16] MEDS ORDERED: Ondansetron ODT 4 MG TAB PO PRN (18:17)
[2021-02-16] MEDS ORDERED: Ondansetron PF 4 MG/2 ML Vial IVP PRN (18:17)
[2021-02-16 19:09] VITALS: BMI 21.9
[2021-02-16] MEDS ORDERED: Warfarin Sodium 2 MG TAB PO SCH (20:15)
[2021-02-16] MEDS: Acetaminophen 325 MG TAB PO PRN (23:58)
[2021-02-17] MEDS ORDERED: hydrALAZINE 20 MG/ML VIAL SLOW IVP PRN (01:15)
[2021-02-17] MEDS: ALPRAZolam 0.5 MG TAB PO PRN ×2 (01:20→11:04)
[2021-02-17] MEDS: Cefepime 2 GM in Sodium Chloride 0.9% 100 ML IVPB SCH ×2 (05:35→16:36)
[2021-02-17 06:09] LABS: #Basophils 0.1 thou/uL (0.0-0.2); #Eosinphils 0.4 thou/uL (0.0-0.7); #Lymphocytes 3.9 thou/uL (1.20-3.40); #Monocytes 1.7 thou/uL (0.11-0.59); #Neutrophils 6.2 thou/uL (1.40-6.50); %Basophils 0.6 % (0.0-1.0); %Eosinophils 3.3 % (0.0-10.0); %Lymphocytes 31.9 % (21.0-51.0); %Monocytes 14.1 % (0.0-10.0); %Neutrophils 50.3 % (42.0-75.0); Hemoglobin 10.7 g/dL (12.0-16.0); Mean Corpuscular HGB CONC 29.8 g/dL (32.0-36.0); Mean Corpuscular Hemoglobin 22.1 pg (27.0-31.0); Mean Corpuscular Volume 74.1 fL (78.0-98.0); Mean Platelet Volume 9.2 fL (7.4-10.4); Platelet Count 303 thou/uL (130-400); Red Blood Cell (RBC) Count 4.82 mill/uL (4.20-5.40); White Blood Cell (WBC) Count 12.4 thou/uL (4.8-10.8)
[2021-02-17 06:28] LABS: Anion Gap 14 mmol/L (10-20); BUN (Urea Nitrogen) 12 mg/dL (9.8-20.1); Calc. Creatinine Clearance 62 mL/min (70-130); Carbon Dioxide 20 mmol/L (23-31); Chloride 108 mmol/L (98-107); Glucose 90 mg/dL (83-110); Potassium 3.2 mmol/L (3.5-5.1); Sodium 139 mmol/L (136-145)
[2021-02-17] MEDS ORDERED: Cefepime 2 GM in Sodium Chloride 0.9% 100 ML IVPB SCH (09:00)
[2021-02-17] MEDS ORDERED: Furosemide 20 MG TAB PO SCH (09:00)
[2021-02-17] MEDS: Meclizine HCl 12.5 MG TAB PO PRN (09:44)
[2021-02-17] MEDS: Carvedilol 3.125 MG TAB PO SCH ×2 (09:45→16:36)
[2021-02-17] MEDS: Atorvastatin Calcium 10 MG TAB PO SCH (09:45)
[2021-02-17] MEDS: Acetaminophen 325 MG TAB PO PRN (15:46)
[2021-02-18] MEDS: Cefepime 2 GM in Sodium Chloride 0.9% 100 ML IVPB SCH (04:35)
[2021-02-18 06:24] LABS: Hemoglobin 9.6 g/dL (12.0-16.0); Mean Corpuscular HGB CONC 29.8 g/dL (32.0-36.0); Mean Corpuscular Hemoglobin 22.1 pg (27.0-31.0); Mean Corpuscular Volume 74.1 fL (78.0-98.0); Mean Platelet Volume 8.9 fL (7.4-10.4); Platelet Count 297 thou/uL (130-400); RBC Distribution Width 16.8 % (11.5-14.5); Red Blood Cell (RBC) Count 4.32 mill/uL (4.20-5.40); White Blood Cell (WBC) Count 7.5 thou/uL (4.8-10.8)
[2021-02-18 06:26] LABS: INR-International Normal Ratio 1.7; Prothrombin Time 20.3 sec (12.0-14.7)
[2021-02-18 06:46] LABS: Eosinophils 1 % (0-10); Hypochromia SLIGHT = 6-15 cells (100X) (0-5/hpf); Lymphocytes 33 % (21-51); MDiff Complete? YES; Microcytosis SLIGHT = 6-15 cells (100X) (0-5/hpf); Monocytes 5 % (0-10); Neutrophil 57 % (42-75); Platelet Morphology Comment Appears Adequate; Reactive Lymphocytes 4 % (0-10)
[2021-02-18 06:51] LABS: Anion Gap 11 mmol/L (10-20); BUN (Urea Nitrogen) 13 mg/dL (9.8-20.1); Calc. Creatinine Clearance 64 mL/min (70-130); Calcium 8.6 mg/dL (7.8-10.44); Carbon Dioxide 24 mmol/L (23-31); Chloride 109 mmol/L (98-107); Glucose 86 mg/dL (83-110); Potassium 3.6 mmol/L (3.5-5.1); Sodium 140 mmol/L (136-145)
[2021-02-18] MEDS: Acetaminophen 325 MG TAB PO PRN ×2 (08:25→22:34)
[2021-02-18] MEDS: Carvedilol 3.125 MG TAB PO SCH ×2 (08:26→16:47)
[2021-02-18] MEDS: Atorvastatin Calcium 10 MG TAB PO SCH (08:27)
[2021-02-18] MEDS: Meclizine HCl 12.5 MG TAB PO PRN (08:27)
[2021-02-18] MEDS: Fioricet 325/50/40 mg Tablet PO PRN (10:36)
[2021-02-18] MEDS ORDERED: Warfarin Sodium 2 MG TAB PO SCH (17:00)
[2021-02-19 06:10] LABS: Hemoglobin 9.1 g/dL (12.0-16.0); Mean Corpuscular HGB CONC 30.7 g/dL (32.0-36.0); Mean Corpuscular Hemoglobin 22.7 pg (27.0-31.0); Mean Corpuscular Volume 74.2 fL (78.0-98.0); Mean Platelet Volume 8.5 fL (7.4-10.4); Platelet Count 300 thou/uL (130-400); RBC Distribution Width 16.7 % (11.5-14.5); Red Blood Cell (RBC) Count 4.01 mill/uL (4.20-5.40); White Blood Cell (WBC) Count 4.8 thou/uL (4.8-10.8)
[2021-02-19 06:19] LABS: Anion Gap 10 mmol/L (10-20); BUN (Urea Nitrogen) 11 mg/dL (9.8-20.1); Calc. Creatinine Clearance 68 mL/min (70-130); Calcium 8.6 mg/dL (7.8-10.44); Carbon Dioxide 27 mmol/L (23-31); Chloride 110 mmol/L (98-107); Glucose 87 mg/dL (83-110); Potassium 3.6 mmol/L (3.5-5.1); Sodium 143 mmol/L (136-145)
[2021-02-19 06:33] LABS: INR-International Normal Ratio 1.4; PTT 44.2 sec (22.9-36.1); Prothrombin Time 17.8 sec (12.0-14.7)
[2021-02-19 06:49] LABS: Band 3 % (5-11); Eosinophils 12 % (0-10); Lymphocytes 37 % (21-51); MDiff Complete? YES; Monocytes 14 % (0-10); Neutrophil 26 % (42-75); Platelet Morphology Comment Appears Adequate; Reactive Lymphocytes 8 % (0-10)
[2021-02-19] MEDS: Meclizine HCl 12.5 MG TAB PO PRN ×2 (09:22→21:12)
[2021-02-19] MEDS: Atorvastatin Calcium 10 MG TAB PO SCH (09:22)
[2021-02-19] MEDS: Carvedilol 3.125 MG TAB PO SCH ×2 (09:22→16:57)
[2021-02-19] MEDS: Fioricet 325/50/40 mg Tablet PO PRN (11:20)
[2021-02-19] MEDS ORDERED: Amlodipine 10 MG TAB PO SCH (11:45)
[2021-02-19] MEDS ORDERED: predniSONE 20 MG TAB PO SCH (14:15)
[2021-02-19] MEDS: Warfarin Sodium 2 MG TAB PO SCH (16:57)
[2021-02-19] MEDS: Acetaminophen 325 MG TAB PO PRN (23:39)
[2021-02-20] MEDS: ALPRAZolam 0.5 MG TAB PO PRN (02:31)
[2021-02-20] MEDS: predniSONE 20 MG TAB PO SCH (08:22)
[2021-02-20] MEDS: Meclizine HCl 12.5 MG TAB PO PRN ×2 (08:22→21:12)
[2021-02-20] MEDS: Atorvastatin Calcium 10 MG TAB PO SCH (08:22)
[2021-02-20] MEDS: Amlodipine 10 MG TAB PO SCH (08:22)
[2021-02-20] MEDS: Carvedilol 3.125 MG TAB PO SCH ×2 (08:22→16:33)
[2021-02-20 08:33] LABS: #Lymphocytes 1.9 thou/uL (1.20-3.40); #Monocytes 0.5 thou/uL (0.11-0.59); #Neutrophils 3.6 thou/uL (1.40-6.50); %Basophils 0.7 % (0.0-1.0); %Eosinophils 0.1 % (0.0-10.0); %Lymphocytes 30.5 % (21.0-51.0); %Monocytes 8.9 % (0.0-10.0); %Neutrophils 59.8 % (42.0-75.0); Hemoglobin 9.9 g/dL (12.0-16.0); Mean Corpuscular HGB CONC 30.9 g/dL (32.0-36.0); Mean Corpuscular Hemoglobin 22.8 pg (27.0-31.0); Mean Corpuscular Volume 73.9 fL (78.0-98.0); Mean Platelet Volume 8.4 fL (7.4-10.4); Platelet Count 345 thou/uL (130-400); RBC Distribution Width 17.2 % (11.5-14.5); Red Blood Cell (RBC) Count 4.34 mill/uL (4.20-5.40); White Blood Cell (WBC) Count 6.1 thou/uL (4.8-10.8)
[2021-02-20 08:43] LABS: INR-International Normal Ratio 1.6
[2021-02-20 08:55] LABS: Anion Gap 13 mmol/L (10-20); BUN (Urea Nitrogen) 8 mg/dL (9.8-20.1); Calc. Creatinine Clearance 76 mL/min (70-130); Calcium 8.9 mg/dL (7.8-10.44); Carbon Dioxide 24 mmol/L (23-31); Chloride 111 mmol/L (98-107); Glucose 100 mg/dL (83-110); Potassium 3.9 mmol/L (3.5-5.1); Sodium 144 mmol/L (136-145)
[2021-02-20] MEDS: Warfarin Sodium 2 MG TAB PO SCH (16:33)
[2021-02-20] MEDS: Acetaminophen 325 MG TAB PO PRN (23:28)
[2021-02-21 05:21] LABS: #Lymphocytes 2.3 thou/uL (1.20-3.40); #Neutrophils 4.6 thou/uL (1.40-6.50); %Basophils 0.6 % (0.0-1.0); %Eosinophils 0.2 % (0.0-10.0); %Lymphocytes 28.5 % (21.0-51.0); %Monocytes 12.8 % (0.0-10.0); %Neutrophils 57.9 % (42.0-75.0); Hemoglobin 9.1 g/dL (12.0-16.0); Mean Corpuscular HGB CONC 30.4 g/dL (32.0-36.0); Mean Corpuscular Hemoglobin 22.4 pg (27.0-31.0); Mean Corpuscular Volume 73.8 fL (78.0-98.0); Mean Platelet Volume 8.3 fL (7.4-10.4); Platelet Count 338 thou/uL (130-400); RBC Distribution Width 17.3 % (11.5-14.5); Red Blood Cell (RBC) Count 4.07 mill/uL (4.20-5.40); White Blood Cell (WBC) Count 7.9 thou/uL (4.8-10.8)
[2021-02-21 05:25] LABS: Prothrombin Time 23.2 sec (12.0-14.7)
[2021-02-21 05:48] LABS: Anion Gap 11 mmol/L (10-20); BUN (Urea Nitrogen) 11 mg/dL (9.8-20.1); Calc. Creatinine Clearance 67 mL/min (70-130); Calcium 8.9 mg/dL (7.8-10.44); Carbon Dioxide 25 mmol/L (23-31); Chloride 110 mmol/L (98-107); Glucose 90 mg/dL (83-110); Potassium 3.2 mmol/L (3.5-5.1); Sodium 143 mmol/L (136-145)
[2021-02-21] MEDS: predniSONE 20 MG TAB PO SCH (08:55)
[2021-02-21] MEDS: Carvedilol 3.125 MG TAB PO SCH (08:55)
[2021-02-21] MEDS: Atorvastatin Calcium 10 MG TAB PO SCH (08:55)
[2021-02-21] MEDS: Amlodipine 10 MG TAB PO SCH (08:55)
[2021-02-21] MEDS: Meclizine HCl 12.5 MG TAB PO PRN (08:56)
[2021-02-21] MEDS: ALPRAZolam 0.5 MG TAB PO PRN (08:56)
[2021-02-21 11:34] VITALS: BP 139/60; TEMP 98
== END 2021-02-21 13:41 | disposition home or self-care (01) | DRG 149 ==
LOC: ERS 14:58 → 2SE 17:44 → INTOOBSV 17:44 → OBSVTOIN 17:44
PROVIDERS: ADMIT Student in an Organized Health Care Education/Training Program; ATTEND Internal Medicine
DX: H81.10 Benign paroxysmal vertigo, unspecified ear (principal); Z20.822 Contact with and (suspected) exposure to COVID-19; H81.20 Vestibular neuronitis, unspecified ear; I10 Essential (primary) hypertension; E78.5 Hyperlipidemia, unspecified; F41.9 Anxiety disorder, unspecified; M32.9 Systemic lupus erythematosus, unspecified; E78.00 Pure hypercholesterolemia, unspecified; G43.909 Migraine, unspecified, not intractable, without status migrainosus; Z88.0 Allergy status to penicillin; Z88.8 Allergy status to other drugs, medicaments and biological substances; Z91.09 Other allergy status, other than to drugs and biological substances; Z90.710 Acquired absence of both cervix and uterus; Z86.711 Personal history of pulmonary embolism; Z79.01 Long term (current) use of anticoagulants; Z79.899 Other long term (current) drug therapy; Z79.52 Long term (current) use of systemic steroids; Z79.02 Long term (current) use of antithrombotics/antiplatelets
CPT/HCPCS: 0240U; 36415; 70450; 70551; 71045; 80048; 80053; 81003; 81015; 83735; 84484; 85025; 85610; 85730; 87040; 87086; 93005; 93880; 94760; 95712; 95819; 95957; 96365; 96366; 96374; 96375; 96376; G0378; J0360; J0692; J2060; J2405; J3490; J7512

== ENCOUNTER 2021-03-20 03:01 | Inpatient (IN) | payer OTHER, MEDICARE ==
[2021-03-20] MEDS ORDERED: Fentanyl 100 MCG/2 ML VIAL ONE (03:51)
[2021-03-20 04:14] LABS: Bilirubin Negative (Negative); Blood, Urine Negative (Negative); Clarity Clear (Clear); Glucose, Urine (Dipstick) Normal (Negative); Ketone, Urine Negative (Negative); Leukocyte Negative Leu/uL (Negative); Nitrite Negative (Negative); Protein, Urine (Dipstick) Negative (Neg-Trace); Specific Gravity, Urine 1.009 (1.002-1.036); Urobilinogen Normal mg/dL (Less than 2); pH, Urine 5.5 (5.0-9.0)
[2021-03-20 04:36] LABS: #Eosinphils 0.3 thou/uL (0.0-0.7); #Lymphocytes 3.1 thou/uL (1.20-3.40); #Monocytes 1.2 thou/uL (0.11-0.59); #Neutrophils 11.7 thou/uL (1.40-6.50); %Basophils 0.3 % (0.0-1.0); %Eosinophils 1.8 % (0.0-10.0); %Lymphocytes 18.9 % (21.0-51.0); %Monocytes 7.2 % (0.0-10.0); %Neutrophils 71.9 % (42.0-75.0); Hemoglobin 9.1 g/dL (12.0-16.0); Mean Corpuscular HGB CONC 31.1 g/dL (32.0-36.0); Mean Corpuscular Hemoglobin 22.5 pg (27.0-31.0); Mean Corpuscular Volume 72.4 fL (78.0-98.0); Mean Platelet Volume 9.2 fL (7.4-10.4); Platelet Count 251 thou/uL (130-400); RBC Distribution Width 18.2 % (11.5-14.5); Red Blood Cell (RBC) Count 4.03 mill/uL (4.20-5.40); White Blood Cell (WBC) Count 16.3 thou/uL (4.8-10.8)
[2021-03-20 04:43] LABS: INR-International Normal Ratio 2.5; PTT 37.6 sec (22.9-36.1); Prothrombin Time 27.7 sec (12.0-14.7)
[2021-03-20] MEDS ORDERED: Bupivacaine 0.5% 10 ML VIAL ONE (04:45)
[2021-03-20 04:55] LABS: ALT (SGPT) 20 U/L (8-55); AST (SGOT) 29 U/L (5-34); Albumin 3.4 g/dL (3.4-4.8); Alkaline Phosphatase 53 U/L (40-110); Anion Gap 10 mmol/L (10-20); BUN (Urea Nitrogen) 18 mg/dL (9.8-20.1); Bilirubin, Total 0.4 mg/dL (0.2-1.2); Calc. Creatinine Clearance 0 mL/min (70-130); Calcium 8.6 mg/dL (7.8-10.44); Carbon Dioxide 29 mmol/L (23-31); Chloride 108 mmol/L (98-107); Globulin 1.9 g/dL (2.4-3.5); Glucose 125 mg/dL (83-110); Potassium 3.9 mmol/L (3.5-5.1); Protein, Total 5.3 g/dL (5.8-8.1); Sodium 143 mmol/L (136-145)
[2021-03-20 05:07] LABS: SARS-CoV-2 NAA Rapid Test Not Detected (NotDetected)
[2021-03-20] MEDS ORDERED: Dextrose 50% Abboject 50 ML SYRINGE SLOW IVP PRN (05:13)
[2021-03-20] MEDS ORDERED: Dextrose 5% in Water 1,000 ML IV PRN (05:13)
[2021-03-20] MEDS ORDERED: Ondansetron PF 4 MG/2 ML Vial IVP PRN (05:13)
[2021-03-20] MEDS ORDERED: traMADol HCl 50 MG TAB PO PRN (05:15)
[2021-03-20] MEDS ORDERED: Cyclobenzaprine 10 MG TAB PO PRN (05:21)
[2021-03-20] MEDS ORDERED: Morphine 4 MG/ML VIAL SLOW IVP PRN ×2 (05:22→10:15)
[2021-03-20] MEDS ORDERED: Non-Formulary Item 1 EACH (Ibandronate Sodium [Boniva] 150 MG Tablet) PO SCH (05:30)
[2021-03-20 05:55] LABS: Magnesium 1.7 mg/dL (1.6-2.6); Phosphorus 3.4 mg/dL (2.3-4.7)
[2021-03-20 05:59] LABS: Troponin I 0.038 ng/mL (< 0.028)
[2021-03-20] MEDS ORDERED: Acetaminophen 325 MG TAB PO SCH (06:00)
[2021-03-20] MEDS ORDERED: Lactated Ringer's 1,000 ML IV SCH ×2 (06:00→16:30)
[2021-03-20] MEDS: Ibuprofen 200 MG TAB PO SCH ×3 (06:17→21:23)
[2021-03-20] MEDS: traMADol HCl 50 MG TAB PO SCH ×2 (06:18→12:04)
[2021-03-20] MEDS ORDERED: Magnesium 2 GM/50 ML 2 GM in Premix Bag 1 BAG IVPB SCH (06:45)
[2021-03-20] MEDS ORDERED: Phytonadione 5 MG TAB PO SCH (07:00)
[2021-03-20] MEDS ORDERED: Clindamycin/D5W 900 MG in Premix Bag 1 BAG IVPB SCH (08:00)
[2021-03-20] MEDS ORDERED: Carvedilol 3.125 MG TAB PO SCH (08:00)
[2021-03-20] MEDS ORDERED: Gabapentin 100 MG CAP PO SCH ×2 (09:00→10:30)
[2021-03-20] MEDS ORDERED: Lisinopril 20 MG TAB PO SCH (09:00)
[2021-03-20] MEDS: predniSONE 5 MG TAB PO SCH (09:01)
[2021-03-20] MEDS: Polyethylene Glycol 3350 17 GM Packet PO SCH (09:01)
[2021-03-20] MEDS: Potassium Chloride 10 MEQ TAB PO SCH (09:01)
[2021-03-20] MEDS: Atorvastatin Calcium 10 MG TAB PO SCH (09:02)
[2021-03-20] MEDS: Carvedilol 3.125 MG TAB PO SCH ×2 (09:02→15:52)
[2021-03-20] MEDS: Furosemide 20 MG TAB PO SCH (09:02)
[2021-03-20] MEDS: Senokot S 8.6-50 MG TAB PO SCH ×2 (09:04→21:24)
[2021-03-20 09:26] VITALS: BMI 20.4
[2021-03-20] MEDS: Acetaminophen 500 MG TAB PO SCH ×2 (12:02→17:59)
[2021-03-20] MEDS ORDERED: Baclofen 10 MG TAB PO PRN (12:17)
[2021-03-20] MEDS ORDERED: Meclizine HCl 25 MG TAB PO PRN (12:22)
[2021-03-20] MEDS ORDERED: Lactated Ringer's 500 ML IV SCH (12:30)
[2021-03-20] MEDS ORDERED: Hydrocortisone Sod Succ/PF 100 mg/2 ml Vial IVP SCH (14:30)
[2021-03-20] MEDS ORDERED: Gabapentin 300 MG CAP PO SCH (15:00)
[2021-03-20] MEDS ORDERED: Acetaminophen/Codeine 30-300mg Tablet PO SCH (16:15)
[2021-03-20 16:34] LABS: #Basophils 0.1 thou/uL (0.0-0.2); #Eosinphils 0.1 thou/uL (0.0-0.7); #Lymphocytes 2.5 thou/uL (1.20-3.40); #Monocytes 0.8 thou/uL (0.11-0.59); #Neutrophils 6.7 thou/uL (1.40-6.50); %Basophils 0.6 % (0.0-1.0); %Eosinophils 0.6 % (0.0-10.0); %Lymphocytes 24.7 % (21.0-51.0); %Monocytes 7.6 % (0.0-10.0); %Neutrophils 66.6 % (42.0-75.0); Hemoglobin 7.1 g/dL (12.0-16.0); Mean Corpuscular HGB CONC 30.9 g/dL (32.0-36.0); Mean Corpuscular Hemoglobin 22.5 pg (27.0-31.0); Mean Platelet Volume 8.7 fL (7.4-10.4); Platelet Count 217 thou/uL (130-400); RBC Distribution Width 18.1 % (11.5-14.5); Red Blood Cell (RBC) Count 3.15 mill/uL (4.20-5.40)
[2021-03-20 16:51] LABS: Anion Gap 11 mmol/L (10-20); BUN (Urea Nitrogen) 19 mg/dL (9.8-20.1); Calc. Creatinine Clearance 45 mL/min (70-130); Calcium 8.1 mg/dL (7.8-10.44); Carbon Dioxide 25 mmol/L (23-31); Chloride 102 mmol/L (98-107); Glucose 128 mg/dL (83-110); Magnesium 2.3 mg/dL (1.6-2.6); Phosphorus 3.7 mg/dL (2.3-4.7); Potassium 4.3 mmol/L (3.5-5.1); Sodium 134 mmol/L (136-145)
[2021-03-20 17:03] LABS: Troponin I 0.631 ng/mL (< 0.028)
[2021-03-20] MEDS: Hydrocortisone Sod Succ/PF 100 mg/2 ml Vial IVP SCH (21:24)
[2021-03-21] MEDS: Acetaminophen 500 MG TAB PO SCH ×5 (00:29→23:56)
[2021-03-21 00:51] LABS: Troponin I 0.243 ng/mL (< 0.028)
[2021-03-21] MEDS: Lactated Ringer's 1,000 ML IV SCH ×2 (04:15→21:32)
[2021-03-21 06:13] LABS: INR-International Normal Ratio 2.4; PTT 43.8 sec (22.9-36.1); Prothrombin Time 26.4 sec (12.0-14.7)
[2021-03-21] MEDS: Ibuprofen 200 MG TAB PO SCH ×3 (06:18→21:17)
[2021-03-21] MEDS: Hydrocortisone Sod Succ/PF 100 mg/2 ml Vial IVP SCH ×3 (06:18→21:16)
[2021-03-21 06:19] LABS: #Lymphocytes 2.5 thou/uL (1.20-3.40); #Neutrophils 11.2 thou/uL (1.40-6.50); %Basophils 0.3 % (0.0-1.0); %Eosinophils 0.2 % (0.0-10.0); %Lymphocytes 17.2 % (21.0-51.0); %Monocytes 6.7 % (0.0-10.0); %Neutrophils 75.7 % (42.0-75.0); Hemoglobin 10.8 g/dL (12.0-16.0); Mean Corpuscular HGB CONC 33.2 g/dL (32.0-36.0); Mean Corpuscular Hemoglobin 25.8 pg (27.0-31.0); Mean Corpuscular Volume 77.6 fL (78.0-98.0); Mean Platelet Volume 9.3 fL (7.4-10.4); Platelet Count 177 thou/uL (130-400); RBC Distribution Width 18.8 % (11.5-14.5); Red Blood Cell (RBC) Count 4.17 mill/uL (4.20-5.40); White Blood Cell (WBC) Count 14.7 thou/uL (4.8-10.8)
[2021-03-21 06:20] LABS: Anion Gap 10 mmol/L (10-20); BUN (Urea Nitrogen) 17 mg/dL (9.8-20.1); Calc. Creatinine Clearance 54 mL/min (70-130); Carbon Dioxide 24 mmol/L (23-31); Chloride 101 mmol/L (98-107); Glucose 118 mg/dL (83-110); Potassium 4.1 mmol/L (3.5-5.1); Sodium 131 mmol/L (136-145)
[2021-03-21 06:26] LABS: Troponin I 0.209 ng/mL (< 0.028)
[2021-03-21] MEDS ORDERED: Fentanyl 100 MCG/2 ML VIAL ONE (06:50)
[2021-03-21] MEDS ORDERED: Ondansetron PF 4 MG/2 ML Vial ONE (08:18)
[2021-03-21] MEDS ORDERED: Lidocaine 1% PF 5 ML VIAL ONE (08:18)
[2021-03-21] MEDS ORDERED: Succinylcholine 200 MG/10 ml SYRINGE FS ONE (08:18)
[2021-03-21] MEDS ORDERED: Rocuronium Bromide 10 MG/ML (10ML VIAL) ONE (08:18)
[2021-03-21] MEDS ORDERED: Dexamethasone 20 MG/5 ML VIAL ONE (08:18)
[2021-03-21] MEDS ORDERED: Glycopyrrolate 0.2 MG/ML 5 ML SYRINGE ONE (08:18)
[2021-03-21] MEDS: Ferrous Sulfate 325 MG TAB PO SCH ×2 (08:47→17:23)
[2021-03-21] MEDS: Furosemide 20 MG TAB PO SCH (08:47)
[2021-03-21] MEDS: Senokot S 8.6-50 MG TAB PO SCH ×2 (08:47→21:32)
[2021-03-21] MEDS: Potassium Chloride 10 MEQ TAB PO SCH (08:47)
[2021-03-21] MEDS: predniSONE 5 MG TAB PO SCH (08:47)
[2021-03-21] MEDS: Ascorbic Acid 500 mg Chewable Tablet PO SCH ×2 (08:47→21:17)
[2021-03-21] MEDS: Polyethylene Glycol 3350 17 GM Packet PO SCH (08:48)
[2021-03-21] MEDS: Atorvastatin Calcium 10 MG TAB PO SCH ×2 (08:53→21:16)
[2021-03-21] MEDS ORDERED: Lisinopril 20 MG TAB PO SCH (09:00)
[2021-03-21] MEDS ORDERED: Phytonadione 10 MG/ML AMP PO SCH (09:00)
[2021-03-21] MEDS ORDERED: Phytonadione 5 MG TAB PO SCH (09:00)
[2021-03-21] MEDS ORDERED: Rizatriptan Benzoate 10 MG MLT TAB PO PRN (19:55)
[2021-03-21] MEDS: Gabapentin 400 MG CAP PO SCH (21:16)
[2021-03-21] MEDS: hydrALAZINE 20 MG/ML VIAL SLOW IVP PRN (21:29)
[2021-03-22] MEDS: traMADol HCl 50 MG TAB PO PRN (01:19)
[2021-03-22] MEDS: hydrALAZINE 20 MG/ML VIAL SLOW IVP PRN (04:37)
[2021-03-22] MEDS: Ibuprofen 200 MG TAB PO SCH ×3 (05:08→20:38)
[2021-03-22] MEDS: Acetaminophen 500 MG TAB PO SCH ×3 (05:09→19:28)
[2021-03-22] MEDS: Hydrocortisone Sod Succ/PF 100 mg/2 ml Vial IVP SCH ×3 (05:18→20:40)
[2021-03-22 06:10] LABS: #Lymphocytes 2.1 thou/uL (1.20-3.40); #Neutrophils 9.9 thou/uL (1.40-6.50); %Basophils 0.2 % (0.0-1.0); %Eosinophils 0.2 % (0.0-10.0); %Lymphocytes 16.4 % (21.0-51.0); %Monocytes 7.6 % (0.0-10.0); %Neutrophils 75.6 % (42.0-75.0); Hemoglobin 10.9 g/dL (12.0-16.0); Mean Corpuscular HGB CONC 33.3 g/dL (32.0-36.0); Mean Corpuscular Hemoglobin 25.8 pg (27.0-31.0); Mean Corpuscular Volume 77.4 fL (78.0-98.0); Mean Platelet Volume 9.4 fL (7.4-10.4); Platelet Count 205 thou/uL (130-400); RBC Distribution Width 19.3 % (11.5-14.5); Red Blood Cell (RBC) Count 4.25 mill/uL (4.20-5.40); White Blood Cell (WBC) Count 13.1 thou/uL (4.8-10.8)
[2021-03-22 06:20] LABS: INR-International Normal Ratio 1.1; PTT 32.9 sec (22.9-36.1); Prothrombin Time 14.8 sec (12.0-14.7)
[2021-03-22 06:41] LABS: Anion Gap 12 mmol/L (10-20); BUN (Urea Nitrogen) 13 mg/dL (9.8-20.1); Calc. Creatinine Clearance 60 mL/min (70-130); Calcium 8.2 mg/dL (7.8-10.44); Carbon Dioxide 25 mmol/L (23-31); Chloride 109 mmol/L (98-107); Glucose 102 mg/dL (83-110); Phosphorus 2.3 mg/dL (2.3-4.7); Potassium 3.9 mmol/L (3.5-5.1); Sodium 142 mmol/L (136-145)
[2021-03-22] MEDS ORDERED: Fentanyl 100 MCG/2 ML VIAL ONE ×2 (07:27→10:00)
[2021-03-22] MEDS ORDERED: Phenylephrine 10 MG/ML VIAL ONE (07:27)
[2021-03-22] MEDS ORDERED: Glycopyrrolate 0.2 MG/ML 5 ML SYRINGE ONE (08:05)
[2021-03-22] MEDS ORDERED: PROPOFOL 200 MG/20 ML VIAL ONE (08:05)
[2021-03-22] MEDS ORDERED: Rocuronium Bromide 10 MG/ML (10ML VIAL) ONE (08:05)
[2021-03-22] MEDS ORDERED: Lidocaine 1% PF 5 ML VIAL ONE (08:05)
[2021-03-22] MEDS ORDERED: Ondansetron HCl/PF 4 MG/2 ML Vial IVP PRN ×2 (08:19→08:43)
[2021-03-22] MEDS ORDERED: Promethazine HCl 25 MG/ML VIAL IM PRN (08:43)
[2021-03-22] MEDS ORDERED: Promethazine HCl 25 MG/ML VIAL SLOW IVP PRN (08:43)
[2021-03-22] MEDS: Ferrous Sulfate 325 MG TAB PO SCH ×2 (12:18→17:47)
[2021-03-22] MEDS: Ascorbic Acid 500 mg Chewable Tablet PO SCH ×2 (12:19→20:37)
[2021-03-22] MEDS: Clindamycin/D5W 900 MG in Premix Bag 1 BAG IVPB SCH ×2 (12:25→17:49)
[2021-03-22] MEDS: Senokot S 8.6-50 MG TAB PO SCH ×2 (12:25→20:40)
[2021-03-22] MEDS: Polyethylene Glycol 3350 17 GM Packet PO SCH (12:25)
[2021-03-22] MEDS: Potassium Chloride 10 MEQ TAB PO SCH (12:29)
[2021-03-22] MEDS: predniSONE 5 MG TAB PO SCH (12:29)
[2021-03-22] MEDS: Gabapentin 400 MG CAP PO SCH ×2 (12:29→20:36)
[2021-03-22] MEDS: Furosemide 20 MG TAB PO SCH (12:30)
[2021-03-22] MEDS: Atorvastatin Calcium 10 MG TAB PO SCH (20:37)
[2021-03-23] MEDS: traMADol HCl 50 MG TAB PO PRN ×2 (00:08→13:56)
[2021-03-23] MEDS: Acetaminophen 500 MG TAB PO SCH ×5 (00:08→22:51)
[2021-03-23] MEDS: Hydrocortisone Sod Succ/PF 100 mg/2 ml Vial IVP SCH ×3 (05:31→22:50)
[2021-03-23] MEDS: Ibuprofen 200 MG TAB PO SCH ×3 (05:37→22:51)
[2021-03-23] MEDS: Polyethylene Glycol 3350 17 GM Packet PO SCH (09:04)
[2021-03-23] MEDS: Gabapentin 400 MG CAP PO SCH ×2 (09:04→20:05)
[2021-03-23] MEDS: Potassium Chloride 10 MEQ TAB PO SCH (09:04)
[2021-03-23] MEDS: Furosemide 20 MG TAB PO SCH (09:04)
[2021-03-23] MEDS: predniSONE 5 MG TAB PO SCH (09:04)
[2021-03-23] MEDS: Senokot S 8.6-50 MG TAB PO SCH ×2 (09:05→20:05)
[2021-03-23] MEDS: Ascorbic Acid 500 mg Chewable Tablet PO SCH ×2 (09:05→20:05)
[2021-03-23] MEDS: Ferrous Sulfate 325 MG TAB PO SCH ×2 (09:05→17:41)
[2021-03-23 09:10] LABS: #Lymphocytes 1.4 thou/uL (1.20-3.40); #Monocytes 1.1 thou/uL (0.11-0.59); #Neutrophils 8.8 thou/uL (1.40-6.50); %Basophils 0.1 % (0.0-1.0); %Eosinophils 0.3 % (0.0-10.0); %Lymphocytes 12.3 % (21.0-51.0); %Monocytes 9.5 % (0.0-10.0); %Neutrophils 77.8 % (42.0-75.0); Hemoglobin 9.3 g/dL (12.0-16.0); Mean Corpuscular HGB CONC 32.3 g/dL (32.0-36.0); Mean Corpuscular Hemoglobin 25.6 pg (27.0-31.0); Mean Corpuscular Volume 79.3 fL (78.0-98.0); Mean Platelet Volume 8.8 fL (7.4-10.4); Platelet Count 205 thou/uL (130-400); RBC Distribution Width 19.6 % (11.5-14.5); Red Blood Cell (RBC) Count 3.62 mill/uL (4.20-5.40); White Blood Cell (WBC) Count 11.3 thou/uL (4.8-10.8)
[2021-03-23] MEDS: Warfarin Sodium 2 MG TAB PO SCH (17:42)
[2021-03-23] MEDS: Atorvastatin Calcium 10 MG TAB PO SCH (20:05)
[2021-03-24] MEDS: Hydrocortisone Sod Succ/PF 100 mg/2 ml Vial IVP SCH (05:08)
[2021-03-24] MEDS: Acetaminophen 500 MG TAB PO SCH ×3 (05:08→16:52)
[2021-03-24] MEDS: Ibuprofen 200 MG TAB PO SCH (05:08)
[2021-03-24 05:24] LABS: PTT 29.5 sec (22.9-36.1)
[2021-03-24 05:46] LABS: Anion Gap 10 mmol/L (10-20); BUN (Urea Nitrogen) 16 mg/dL (9.8-20.1); Calc. Creatinine Clearance 51 mL/min (70-130); Calcium 8.5 mg/dL (7.8-10.44); Carbon Dioxide 25 mmol/L (23-31); Chloride 104 mmol/L (98-107); Glucose 117 mg/dL (83-110); Magnesium 1.9 mg/dL (1.6-2.6); Phosphorus 2.9 mg/dL (2.3-4.7); Sodium 135 mmol/L (136-145)
[2021-03-24 05:49] LABS: Prothrombin Time 13.4 sec (12.0-14.7)
[2021-03-24 06:03] LABS: #Lymphocytes 1.7 thou/uL (1.20-3.40); #Monocytes 0.9 thou/uL (0.11-0.59); #Neutrophils 7.7 thou/uL (1.40-6.50); %Basophils 0.2 % (0.0-1.0); %Eosinophils 0.3 % (0.0-10.0); %Lymphocytes 16.4 % (21.0-51.0); %Monocytes 8.2 % (0.0-10.0); %Neutrophils 74.9 % (42.0-75.0); Anisocytosis SLIGHT = 6-15 cells (100X) (0-5/hpf); Elliptocytes SLIGHT = 2-5 cells (100X) (0-1/hpf); Hypochromia SLIGHT = 6-15 cells (100X) (0-5/hpf); MDiff Complete? YES; Mean Corpuscular HGB CONC 31.5 g/dL (32.0-36.0); Mean Corpuscular Hemoglobin 25.1 pg (27.0-31.0); Mean Corpuscular Volume 79.6 fL (78.0-98.0); Mean Platelet Volume 8.6 fL (7.4-10.4); Platelet Count 215 thou/uL (130-400); RBC Distribution Width 20.1 % (11.5-14.5); Red Blood Cell (RBC) Count 3.57 mill/uL (4.20-5.40); White Blood Cell (WBC) Count 10.3 thou/uL (4.8-10.8)
[2021-03-24] MEDS: predniSONE 5 MG TAB PO SCH (07:54)
[2021-03-24] MEDS: Ferrous Sulfate 325 MG TAB PO SCH ×3 (07:54→19:36)
[2021-03-24] MEDS: Furosemide 20 MG TAB PO SCH (07:54)
[2021-03-24] MEDS: Ascorbic Acid 500 mg Chewable Tablet PO SCH ×2 (07:54→19:36)
[2021-03-24] MEDS: Senokot S 8.6-50 MG TAB PO SCH ×2 (07:55→19:44)
[2021-03-24] MEDS: Polyethylene Glycol 3350 17 GM Packet PO SCH (07:55)
[2021-03-24] MEDS: Potassium Chloride 10 MEQ TAB PO SCH (07:55)
[2021-03-24] MEDS: Gabapentin 400 MG CAP PO SCH ×2 (07:55→19:36)
[2021-03-24] MEDS: traMADol HCl 50 MG TAB PO PRN ×2 (07:59→16:52)
[2021-03-24] MEDS ORDERED: Ibuprofen 200 MG TAB PO PRN (08:45)
[2021-03-24] MEDS: Enoxaparin Sodium 60 MG/0.6 ML SYRINGE SC SCH ×2 (09:47→19:36)
[2021-03-24] MEDS: hydrALAZINE 20 MG/ML VIAL SLOW IVP PRN (16:54)
[2021-03-24] MEDS ORDERED: Warfarin Sodium 2 MG TAB PO SCH (17:00)
[2021-03-24] MEDS: Atorvastatin Calcium 10 MG TAB PO SCH (19:36)
[2021-03-25] MEDS: Acetaminophen 500 MG TAB PO SCH ×4 (00:08→18:21)
[2021-03-25 06:35] LABS: INR-International Normal Ratio 1.2; PTT 37.7 sec (22.9-36.1); Prothrombin Time 15.3 sec (12.0-14.7)
[2021-03-25] MEDS: Ascorbic Acid 500 mg Chewable Tablet PO SCH ×2 (09:44→20:24)
[2021-03-25] MEDS: Gabapentin 400 MG CAP PO SCH ×2 (09:44→20:23)
[2021-03-25] MEDS: Senokot S 8.6-50 MG TAB PO SCH ×2 (09:44→20:25)
[2021-03-25] MEDS: Potassium Chloride 10 MEQ TAB PO SCH (09:45)
[2021-03-25] MEDS: predniSONE 5 MG TAB PO SCH (09:45)
[2021-03-25] MEDS: Furosemide 20 MG TAB PO SCH (09:45)
[2021-03-25] MEDS: traMADol HCl 50 MG TAB PO PRN ×3 (09:45→18:23)
[2021-03-25] MEDS: Enoxaparin Sodium 60 MG/0.6 ML SYRINGE SC SCH ×2 (09:46→20:24)
[2021-03-25] MEDS: Polyethylene Glycol 3350 17 GM Packet PO SCH (09:46)
[2021-03-25] MEDS: Ferrous Sulfate 325 MG TAB PO SCH ×2 (09:46→20:24)
[2021-03-25] MEDS: Warfarin Sodium 2 MG TAB PO SCH (18:21)
[2021-03-25] MEDS: Atorvastatin Calcium 10 MG TAB PO SCH (20:24)
[2021-03-26] MEDS: traMADol HCl 50 MG TAB PO PRN ×2 (00:37→08:57)
[2021-03-26] MEDS: Acetaminophen 500 MG TAB PO SCH ×4 (00:38→18:21)
[2021-03-26 06:02] LABS: INR-International Normal Ratio 1.4; Prothrombin Time 17.4 sec (12.0-14.7)
[2021-03-26] MEDS: Polyethylene Glycol 3350 17 GM Packet PO SCH (08:55)
[2021-03-26] MEDS: Senokot S 8.6-50 MG TAB PO SCH ×2 (08:55→22:06)
[2021-03-26] MEDS: Enoxaparin Sodium 60 MG/0.6 ML SYRINGE SC SCH ×2 (08:55→22:07)
[2021-03-26] MEDS: Gabapentin 400 MG CAP PO SCH ×2 (08:56→22:06)
[2021-03-26] MEDS: Potassium Chloride 10 MEQ TAB PO SCH (08:56)
[2021-03-26] MEDS: Ascorbic Acid 500 mg Chewable Tablet PO SCH ×2 (08:56→22:06)
[2021-03-26] MEDS: Ferrous Sulfate 325 MG TAB PO SCH ×2 (08:57→22:07)
[2021-03-26] MEDS: predniSONE 5 MG TAB PO SCH (08:57)
[2021-03-26] MEDS: Furosemide 20 MG TAB PO SCH (08:57)
[2021-03-26] MEDS ORDERED: traMADol HCl 50 MG TAB PO PRN (09:41)
[2021-03-26] MEDS ORDERED: Ketorolac Tromethamine 30 MG/ML VIAL IVP SCH (09:45)
[2021-03-26] MEDS: traMADol HCl 50 MG TAB PO SCH ×2 (12:21→18:22)
[2021-03-26] MEDS: Ibuprofen 200 MG TAB PO SCH ×2 (14:50→22:05)
[2021-03-26] MEDS: Warfarin Sodium 2 MG TAB PO SCH (15:57)
[2021-03-26] MEDS: Atorvastatin Calcium 10 MG TAB PO SCH (22:07)
[2021-03-26] MEDS: hydrALAZINE 20 MG/ML VIAL SLOW IVP PRN (22:28)
[2021-03-26] MEDS: ALPRAZolam 0.5 MG TAB PO PRN (22:29)
[2021-03-27] MEDS: traMADol HCl 50 MG TAB PO SCH ×4 (00:43→18:49)
[2021-03-27] MEDS: Acetaminophen 500 MG TAB PO SCH ×4 (00:43→18:15)
[2021-03-27 05:18] LABS: INR-International Normal Ratio 1.6; PTT 58.7 sec (22.9-36.1); Prothrombin Time 19.8 sec (12.0-14.7)
[2021-03-27] MEDS: Ibuprofen 200 MG TAB PO SCH (05:23)
[2021-03-27] MEDS: Polyethylene Glycol 3350 17 GM Packet PO SCH (09:45)
[2021-03-27] MEDS: predniSONE 5 MG TAB PO SCH (09:45)
[2021-03-27] MEDS: Ascorbic Acid 500 mg Chewable Tablet PO SCH ×2 (09:46→21:52)
[2021-03-27] MEDS: Enoxaparin Sodium 60 MG/0.6 ML SYRINGE SC SCH ×2 (09:46→21:51)
[2021-03-27] MEDS: Ferrous Sulfate 325 MG TAB PO SCH ×2 (09:46→21:53)
[2021-03-27] MEDS: Senokot S 8.6-50 MG TAB PO SCH ×2 (09:46→21:52)
[2021-03-27] MEDS: Potassium Chloride 10 MEQ TAB PO SCH (09:46)
[2021-03-27] MEDS: Furosemide 20 MG TAB PO SCH (09:46)
[2021-03-27] MEDS: Gabapentin 400 MG CAP PO SCH ×3 (11:02→21:52)
[2021-03-27 11:46] LABS: Bacteria/HPF 3+ HPF (None Seen); Bilirubin Negative (Negative); Blood, Urine 2+ (Negative); Clarity Extra Turbid (Clear); Glucose, Urine (Dipstick) Normal (Negative); Ketone, Urine Negative (Negative); Leukocyte 500 Leu/uL (Negative); Nitrite Negative (Negative); Protein, Urine (Dipstick) 50 mg/dL (Neg-Trace); RBC/HPF 21-50 HPF (0-3); Specific Gravity, Urine 1.013 (1.002-1.036); Squamous Epithelial None Seen HPF (0-3); Urobilinogen Normal mg/dL (Less than 2); WBC/HPF Greater than 50 HPF (0-3); pH, Urine 6.5 (5.0-9.0)
[2021-03-27 12:26] LABS: Urine Culture Reflex Yes Yes
[2021-03-27] MEDS ORDERED: Chloraseptic Spray 180 ml Bottle PO PRN ×2 (13:14→15:56)
[2021-03-27] MEDS ORDERED: Gabapentin 300 MG CAP PO SCH (15:00)
[2021-03-27] MEDS: Warfarin Sodium 2 MG TAB PO SCH (16:20)
[2021-03-27] MEDS ORDERED: Ibuprofen 600 MG TAB PO PRN (18:52)
[2021-03-27] MEDS ORDERED: Sulfameth/Trimethoprim DS 800-160mg TAB PO SCH (21:00)
[2021-03-27] MEDS: Nystatin 500,000 UNITS/5 ML UDCUP SSW SCH (21:51)
[2021-03-27] MEDS: ALPRAZolam 0.5 MG TAB PO PRN (21:51)
[2021-03-27] MEDS: Atorvastatin Calcium 10 MG TAB PO SCH (21:52)
[2021-03-28] MEDS: Acetaminophen 500 MG TAB PO SCH ×3 (00:30→13:08)
[2021-03-28] MEDS: traMADol HCl 50 MG TAB PO SCH ×3 (00:31→13:07)
[2021-03-28 05:59] LABS: INR-International Normal Ratio 1.9; Prothrombin Time 21.7 sec (12.0-14.7)
[2021-03-28 06:00] LABS: PTT 55.2 sec (22.9-36.1)
[2021-03-28] MEDS ORDERED: Nitrofurantoin Monohyd/M-Cryst 100 MG CAP PO SCH (09:00)
[2021-03-28] MEDS: Gabapentin 400 MG CAP PO SCH ×2 (09:16→16:18)
[2021-03-28] MEDS: Ascorbic Acid 500 mg Chewable Tablet PO SCH (09:16)
[2021-03-28] MEDS: Nystatin 500,000 UNITS/5 ML UDCUP SSW SCH ×2 (09:17→14:42)
[2021-03-28] MEDS: Ferrous Sulfate 325 MG TAB PO SCH (09:17)
[2021-03-28] MEDS: predniSONE 5 MG TAB PO SCH (09:17)
[2021-03-28] MEDS: Furosemide 20 MG TAB PO SCH (09:17)
[2021-03-28] MEDS: Senokot S 8.6-50 MG TAB PO SCH (09:17)
[2021-03-28] MEDS: Potassium Chloride 10 MEQ TAB PO SCH (09:17)
[2021-03-28] MEDS: Polyethylene Glycol 3350 17 GM Packet PO SCH (09:18)
[2021-03-28 15:20] VITALS: BP 152/67; TEMP 98.3
== END 2021-03-28 15:05 | disposition swing bed (61) | DRG 480 ==
LOC: ERS 03:01 → SJJU 04:38
PROVIDERS: ADMIT Surgery; ATTEND Surgery
PROC: 30233N1 Transfusion of Nonautologous Red Blood Cells into Peripheral Vein, Percutaneous Approach (ICD-10-PCS; 2021-03-20)
PROC: 0QS636Z Reposition Right Upper Femur with Intramedullary Internal Fixation Device, Percutaneous Approach (ICD-10-PCS; principal; 2021-03-22)
DX: S72.21XA Displaced subtrochanteric fracture of right femur, initial encounter for closed fracture (principal); I21.A1 Myocardial infarction type 2; E87.1 Hypo-osmolality and hyponatremia; Z20.822 Contact with and (suspected) exposure to COVID-19; M32.9 Systemic lupus erythematosus, unspecified; G43.909 Migraine, unspecified, not intractable, without status migrainosus; E78.5 Hyperlipidemia, unspecified; E78.00 Pure hypercholesterolemia, unspecified; I10 Essential (primary) hypertension; I25.10 Atherosclerotic heart disease of native coronary artery without angina pectoris; M81.0 Age-related osteoporosis without current pathological fracture; W01.0XXA Fall on same level from slipping, tripping and stumbling without subsequent striking against object, initial encounter; D64.9 Anemia, unspecified; E83.42 Hypomagnesemia; R33.9 Retention of urine, unspecified; Z86.711 Personal history of pulmonary embolism; Z86.73 Personal history of transient ischemic attack (TIA), and cerebral infarction without residual deficits; Z85.72 Personal history of non-Hodgkin lymphomas; Z90.710 Acquired absence of both cervix and uterus; Z90.89 Acquired absence of other organs; Z86.718 Personal history of other venous thrombosis and embolism; Z88.0 Allergy status to penicillin; Z91.018 Allergy to other foods; Z91.048 Other nonmedicinal substance allergy status
CPT/HCPCS: 36415; 36430; 51702; 71045; 76000; 80048; 80053; 81001; 81003; 82533; 83735; 84100; 84484; 85025; 85610; 85730; 86850; 86900; 86901; 87077; 87081; 87086; 87186; 87430; 93005; 93010; 96374; C1713; G0390; J0360; J1100; J1650; J1720; J1885; J2370; J2405; J2704; J3010; J3475; J3490; J7512; J7620; P9016; U0002; U0005

== ENCOUNTER 2021-04-12 13:05 | Inpatient (IN) | payer MEDICARE ==
[2021-04-12 13:52] LABS: Mean Corpuscular HGB CONC 32.7 g/dL (32.0-36.0); Mean Corpuscular Volume 85.5 fL (78.0-98.0); Mean Platelet Volume 7.5 fL (7.4-10.4); Platelet Count 351 thou/uL (130-400); RBC Distribution Width 22.6 % (11.5-14.5); Red Blood Cell (RBC) Count 3.24 mill/uL (4.20-5.40); White Blood Cell (WBC) Count 5.9 thou/uL (4.8-10.8)
[2021-04-12 13:59] LABS: INR-International Normal Ratio 1.9; PTT 37.4 sec (22.9-36.1); Prothrombin Time 22.3 sec (12.0-14.7)
[2021-04-12 14:05] LABS: Anisocytosis MODERATE=16-30 cells (100X) (0-5/hpf); Band 4 % (5-11); Eosinophils 7 % (0-10); Lymphocytes 35 % (21-51); MDiff Complete? YES; Monocytes 18 % (0-10); Neutrophil 30 % (42-75); Platelet Morphology Comment Appears Adequate; Polychromasia SLIGHT = 2-3 cells (100X) (0-2/hpf); Reactive Lymphocytes 6 % (0-10)
[2021-04-12 14:14] LABS: ALT (SGPT) 13 U/L (8-55); AST (SGOT) 30 U/L (5-34); Albumin 2.9 g/dL (3.4-4.8); Alkaline Phosphatase 104 U/L (40-110); Anion Gap 13 mmol/L (10-20); BUN (Urea Nitrogen) 24 mg/dL (9.8-20.1); Bilirubin, Total 0.6 mg/dL (0.2-1.2); Calc. Creatinine Clearance 0 mL/min (70-130); Calcium 8.1 mg/dL (7.8-10.44); Carbon Dioxide 18 mmol/L (23-31); Chloride 106 mmol/L (98-107); Globulin 1.9 g/dL (2.4-3.5); Glucose 88 mg/dL (83-110); Protein, Total 4.8 g/dL (5.8-8.1); Sodium 133 mmol/L (136-145)
[2021-04-12] MEDS ORDERED: cefTRIAXone\\ROCEPHIN 1 GM VIAL ONE (14:33)
[2021-04-12 14:36] LABS: CKMB 1.5 ng/mL (0-6.6)
[2021-04-12 15:17] LABS: Bilirubin Negative (Negative); Blood, Urine Small (Negative); Glucose, Urine (Dipstick) Negative (Negative); Ketone, Urine Negative (Negative); Leukocyte Large (Negative); Nitrite Positive (Negative); Protein, Urine (Dipstick) Negative (Neg-Trace); Urobilinogen 0.2 mg/dL (Less than 2)
[2021-04-12 15:20] LABS: Clarity Hazy (Clear); Specific Gravity, Urine 1.008 (1.005-1.030)
[2021-04-12 15:21] LABS: WBC/HPF Greater than 50 HPF (0-3)
[2021-04-12 15:23] LABS: Bacteria/HPF 2+ HPF (None Seen); Squamous Epithelial 0-3 HPF (0-3)
[2021-04-12] MEDS ORDERED: Rizatriptan Benzoate 10 MG MLT TAB PO PRN (17:55)
[2021-04-12] MEDS ORDERED: Meclizine HCl 12.5 MG TAB PO PRN (17:55)
[2021-04-12] MEDS ORDERED: Warfarin Sodium 1 MG TAB PO SCH (18:15)
[2021-04-12] MEDS: Acetaminophen 500 MG TAB PO SCH (18:24)
[2021-04-12 19:06] LABS: Thyroid Stimulating Hormone 2.3993 uIU/mL (0.35-4.94); Vitamin D, 25 Hydroxy 31.2 ng/ml (> 30.0)
[2021-04-12 19:14] VITALS: BMI 18.8
[2021-04-12] MEDS: Lisinopril 20 MG TAB PO SCH (22:09)
[2021-04-13] MEDS: Acetaminophen 500 MG TAB PO SCH ×5 (00:49→23:33)
[2021-04-13] MEDS: hydrALAZINE 20 MG/ML VIAL SLOW IVP PRN ×2 (04:14→20:56)
[2021-04-13 05:28] LABS: INR-International Normal Ratio 1.6; Prothrombin Time 19.6 sec (12.0-14.7)
[2021-04-13 07:19] LABS: Troponin I 0.028 ng/mL (< 0.028)
[2021-04-13] MEDS: Lisinopril 20 MG TAB PO SCH ×2 (08:29→19:50)
[2021-04-13] MEDS: Furosemide 20 MG TAB PO SCH (08:29)
[2021-04-13] MEDS: Carvedilol 3.125 MG TAB PO SCH ×2 (08:29→17:23)
[2021-04-13 09:25] LABS: Troponin I 0.033 ng/mL (< 0.028)
[2021-04-13] MEDS: cefTRIAXone\\ROCEPHIN 1 GM in Sodium Chloride 0.9% 100 ML IVPB SCH (14:46)
[2021-04-13] MEDS: Scopolamine 1.5 mg/72 hour Patch TD SCH (14:47)
[2021-04-13] MEDS ORDERED: Warfarin Sodium 1 MG TAB PO SCH (17:00)
[2021-04-13] MEDS ORDERED: Mineral Oil ENEMA PR SCH (18:15)
[2021-04-14] MEDS: Acetaminophen 500 MG TAB PO SCH ×4 (05:49→23:54)
[2021-04-14 06:02] LABS: INR-International Normal Ratio 1.5; Prothrombin Time 17.9 sec (12.0-14.7)
[2021-04-14] MEDS: Lisinopril 20 MG TAB PO SCH ×2 (08:16→20:09)
[2021-04-14] MEDS: Furosemide 20 MG TAB PO SCH (08:17)
[2021-04-14] MEDS: Carvedilol 3.125 MG TAB PO SCH ×2 (08:17→17:25)
[2021-04-14] MEDS: cefTRIAXone\\ROCEPHIN 1 GM in Sodium Chloride 0.9% 100 ML IVPB SCH (15:49)
[2021-04-14] MEDS ORDERED: Warfarin Sodium 2 MG TAB PO SCH (17:00)
[2021-04-14] MEDS: Gabapentin 400 MG CAP PO SCH (20:09)
[2021-04-15] MEDS: Acetaminophen 500 MG TAB PO SCH ×4 (05:44→18:03)
[2021-04-15 06:02] LABS: INR-International Normal Ratio 1.4; Prothrombin Time 17.1 sec (12.0-14.7)
[2021-04-15 06:10] LABS: Anion Gap 13 mmol/L (10-20); BUN (Urea Nitrogen) 5 mg/dL (9.8-20.1); Calc. Creatinine Clearance 64 mL/min (70-130); Calcium 8.2 mg/dL (7.8-10.44); Carbon Dioxide 25 mmol/L (23-31); Chloride 101 mmol/L (98-107); Glucose 90 mg/dL (83-110); Potassium 3.2 mmol/L (3.5-5.1); Sodium 136 mmol/L (136-145)
[2021-04-15 06:24] LABS: Band 5 % (5-11); Hemoglobin 10.6 g/dL (12.0-16.0); Hypochromia SLIGHT = 6-15 cells (100X) (0-5/hpf); Lymphocytes 37 % (21-51); MDiff Complete? YES; Mean Corpuscular HGB CONC 32.5 g/dL (32.0-36.0); Mean Corpuscular Hemoglobin 27.4 pg (27.0-31.0); Mean Corpuscular Volume 84.3 fL (78.0-98.0); Mean Platelet Volume 7.8 fL (7.4-10.4); Monocytes 17 % (0-10); Neutrophil 38 % (42-75); Platelet Count 334 thou/uL (130-400); Platelet Morphology Comment Appears Adequate; Reactive Lymphocytes 3 % (0-10); Red Blood Cell (RBC) Count 3.87 mill/uL (4.20-5.40); White Blood Cell (WBC) Count 4.9 thou/uL (4.8-10.8)
[2021-04-15] MEDS: Carvedilol 3.125 MG TAB PO SCH ×2 (07:58→18:03)
[2021-04-15] MEDS: Lisinopril 20 MG TAB PO SCH ×2 (08:00→20:45)
[2021-04-15] MEDS: Furosemide 20 MG TAB PO SCH (08:00)
[2021-04-15] MEDS: Gabapentin 400 MG CAP PO SCH ×2 (08:01→20:45)
[2021-04-15] MEDS: cefTRIAXone\\ROCEPHIN 1 GM in Sodium Chloride 0.9% 100 ML IVPB SCH (15:04)
[2021-04-15] MEDS ORDERED: Warfarin Sodium 5 MG TAB PO SCH (16:45)
[2021-04-16] MEDS: Acetaminophen 500 MG TAB PO SCH ×5 (00:57→23:31)
[2021-04-16 06:39] LABS: INR-International Normal Ratio 1.6; Prothrombin Time 18.7 sec (12.0-14.7)
[2021-04-16 06:49] LABS: Anion Gap 11 mmol/L (10-20); BUN (Urea Nitrogen) 4 mg/dL (9.8-20.1); Calc. Creatinine Clearance 80 mL/min (70-130); Calcium 8.1 mg/dL (7.8-10.44); Carbon Dioxide 27 mmol/L (23-31); Chloride 104 mmol/L (98-107); Glucose 88 mg/dL (83-110); Sodium 139 mmol/L (136-145)
[2021-04-16 06:50] LABS: Eosinophils 5 % (0-10); Hemoglobin 10.1 g/dL (12.0-16.0); Lymphocytes 19 % (21-51); MDiff Complete? YES; Mean Corpuscular HGB CONC 31.7 g/dL (32.0-36.0); Mean Corpuscular Hemoglobin 27.1 pg (27.0-31.0); Mean Corpuscular Volume 85.5 fL (78.0-98.0); Mean Platelet Volume 7.7 fL (7.4-10.4); Microcytosis SLIGHT = 6-15 cells (100X) (0-5/hpf); Monocytes 16 % (0-10); Neutrophil 25 % (42-75); Platelet Count 301 thou/uL (130-400); Platelet Morphology Comment Appears Adequate; RBC Distribution Width 22.2 % (11.5-14.5); Reactive Lymphocytes 35 % (0-10); Red Blood Cell (RBC) Count 3.74 mill/uL (4.20-5.40); White Blood Cell (WBC) Count 4.2 thou/uL (4.8-10.8)
[2021-04-16 06:52] LABS: Potassium 2.9 mmol/L (3.5-5.1)
[2021-04-16] MEDS ORDERED: Potassium Chloride 20 MEQ TAB PO SCH (09:00)
[2021-04-16] MEDS: Gabapentin 400 MG CAP PO SCH ×2 (09:10→21:26)
[2021-04-16] MEDS: Carvedilol 3.125 MG TAB PO SCH ×2 (09:10→17:57)
[2021-04-16] MEDS: Furosemide 20 MG TAB PO SCH (09:10)
[2021-04-16] MEDS: Lisinopril 20 MG TAB PO SCH ×2 (09:11→21:25)
[2021-04-16] MEDS: Bisacodyl 10 MG SUPP PR SCH (09:12)
[2021-04-16] MEDS: Scopolamine 1.5 mg/72 hour Patch TD SCH (13:01)
[2021-04-16] MEDS ORDERED: Warfarin Sodium 5 MG TAB PO SCH (14:00)
[2021-04-16] MEDS: cefTRIAXone\\ROCEPHIN 1 GM in Sodium Chloride 0.9% 100 ML IVPB SCH (15:32)
[2021-04-16] MEDS ORDERED: Ketorolac Tromethamine 30 MG/ML VIAL IVP SCH (23:15)
[2021-04-17] MEDS: Acetaminophen 500 MG TAB PO SCH ×2 (06:16→12:57)
[2021-04-17 07:17] LABS: INR-International Normal Ratio 1.9; Prothrombin Time 21.7 sec (12.0-14.7)
[2021-04-17 07:25] LABS: Anion Gap 13 mmol/L (10-20); BUN (Urea Nitrogen) 4 mg/dL (9.8-20.1); Calc. Creatinine Clearance 75 mL/min (70-130); Calcium 8.3 mg/dL (7.8-10.44); Carbon Dioxide 23 mmol/L (23-31); Chloride 103 mmol/L (98-107); Glucose 80 mg/dL (83-110); Hemoglobin 10.5 g/dL (12.0-16.0); Mean Corpuscular HGB CONC 31.1 g/dL (32.0-36.0); Mean Corpuscular Hemoglobin 26.9 pg (27.0-31.0); Mean Corpuscular Volume 86.5 fL (78.0-98.0); Mean Platelet Volume 7.7 fL (7.4-10.4); Platelet Count 303 thou/uL (130-400); Potassium 3.1 mmol/L (3.5-5.1); RBC Distribution Width 21.8 % (11.5-14.5); Red Blood Cell (RBC) Count 3.88 mill/uL (4.20-5.40); Sodium 136 mmol/L (136-145)
[2021-04-17] MEDS: Lisinopril 20 MG TAB PO SCH (08:42)
[2021-04-17] MEDS: Carvedilol 3.125 MG TAB PO SCH (08:42)
[2021-04-17] MEDS: Furosemide 20 MG TAB PO SCH (08:43)
[2021-04-17] MEDS: Bisacodyl 10 MG SUPP PR SCH (08:46)
[2021-04-17] MEDS: Gabapentin 400 MG CAP PO SCH (08:46)
[2021-04-17 10:12] LABS: Band 7 % (5-11); Eosinophils 11 % (0-10); Lymphocytes 35 % (21-51); MDiff Complete? YES; Monocytes 7 % (0-10); Neutrophil 23 % (42-75); Reactive Lymphocytes 15 % (0-10)
[2021-04-17] MEDS ORDERED: Ketorolac Tromethamine 30 MG/ML VIAL IVP SCH (10:30)
[2021-04-17] MEDS ORDERED: Potassium Chloride 20 MEQ TAB PO SCH (10:30)
[2021-04-17 14:21] VITALS: BP 132/68; TEMP 98.3
== END 2021-04-17 14:30 | disposition home health service (06) | DRG 689 ==
LOC: ERS 13:05 → OBSVTOIN 16:27 → SURG A 16:27 → T4-B 04-15 09:22
PROVIDERS: ADMIT Internal Medicine; ATTEND Internal Medicine
PROC: 0T9B70Z Drainage of Bladder with Drainage Device, Via Natural or Artificial Opening (ICD-10-PCS; principal; 2021-04-14)
DX: N39.0 Urinary tract infection, site not specified (principal); G93.41 Metabolic encephalopathy; N17.9 Acute kidney failure, unspecified; R53.81 Other malaise; E78.5 Hyperlipidemia, unspecified; M32.9 Systemic lupus erythematosus, unspecified; I10 Essential (primary) hypertension; R33.9 Retention of urine, unspecified; B96.5 Pseudomonas (aeruginosa) (mallei) (pseudomallei) as the cause of diseases classified elsewhere; K59.00 Constipation, unspecified; Z85.72 Personal history of non-Hodgkin lymphomas; Z86.711 Personal history of pulmonary embolism; Z88.0 Allergy status to penicillin; Z88.8 Allergy status to other drugs, medicaments and biological substances; Z79.899 Other long term (current) drug therapy; Z87.81 Personal history of (healed) traumatic fracture; Z79.01 Long term (current) use of anticoagulants; Z86.718 Personal history of other venous thrombosis and embolism; S72.21XS Displaced subtrochanteric fracture of right femur, sequela
CPT/HCPCS: 36415; 36416; 51701; 70450; 71045; 80048; 80053; 81003; 81015; 82140; 82306; 82550; 82553; 83605; 84443; 84484; 85025; 85610; 85730; 87040; 87077; 87086; 87186; 93005; 93010; 94760; 96365; G0378; J0360; J0696; J1885; J3490

== ENCOUNTER 2021-05-07 13:15 | Outpatient (CLI) | payer MEDICARE | END 2021-05-07 13:16 | disposition home or self-care (01) | LOC: BICULT 13:15 | PROVIDERS: ATTEND Physician Assistant Surgical | DX: S72.21XA Displaced subtrochanteric fracture of right femur, initial encounter for closed fracture (principal); M79.604 Pain in right leg ==

== ENCOUNTER 2021-09-15 12:54 | Outpatient (CLI) | payer MEDICARE ==
[2021-09-15 15:07] LABS: Hemoglobin 11.5 g/dL (12.0-15.5); Mean Corpuscular HGB CONC 30.1 g/dL (32.0-36.0); Mean Corpuscular Hemoglobin 24.1 pg (27.0-33.0); Mean Corpuscular Volume 80.1 fl (81.6-98.3); Platelet Count 227 10x3/uL (150-450); RBC Distribution Width 19.7 % (11.5-14.5); Red Blood Cell (RBC) Count 4.77 10x6/uL (3.90-5.03); White Blood Cell (WBC) Count 5.6 10x3/uL (3.5-10.5)
[2021-09-15 15:27] LABS: Anion Gap 12 mmol/L (10-20); BUN (Urea Nitrogen) 13 mg/dL (9.8-20.1); Calc. Creatinine Clearance 0 mL/min (70-130); Calcium 8.8 mg/dL (7.8-10.44); Carbon Dioxide 27 mmol/L (23-31); Chloride 105 mmol/L (98-107); Glucose 146 mg/dL (83-110); Potassium 4.3 mmol/L (3.5-5.1); Sodium 140 mmol/L (136-145)
[2021-09-15 15:29] LABS: Prothrombin Time 31.9 sec (9.5-12.1)
[2021-09-16 13:39] LABS: SARS-CoV-2 PCR by NAA Not Detected (NotDetected)
== END 2021-09-15 12:55 | disposition home or self-care (01) ==
LOC: LABBT 12:54
PROVIDERS: ATTEND Orthopaedic Surgery
DX: Z01.812 Encounter for preprocedural laboratory examination (principal); Z20.822 Contact with and (suspected) exposure to COVID-19
CPT/HCPCS: 80048; 85027; 85610; U0003; U0005

== ENCOUNTER 2021-09-19 08:01 | Inpatient (IN) | payer MEDICARE ==
[2021-09-18 10:38] VITALS: BMI 20.5
[2021-09-19] MEDS ORDERED: Levofloxacin 500 mg/D5W 100 ml Premix Bag ONE (08:52)
[2021-09-19] MEDS ORDERED: Clindamycin/D5W 600 mg/50 ml Premix Bag ONE (08:52)
[2021-09-19] MEDS ORDERED: Clindamycin/D5W 900 mg/50 ml Premix Bag ONE (08:54)
[2021-09-19 09:06] LABS: INR-International Normal Ratio 1.2; Prothrombin Time 15.1 sec (12.0-14.7)
[2021-09-19 09:07] LABS: PTT 28.8 sec (22.9-36.1)
[2021-09-19] MEDS ORDERED: Famotidine/PF 20 mg/2ml Vial ONE (10:32)
[2021-09-19] MEDS ORDERED: Fentanyl 100 MCG/2 ML VIAL ONE ×3 (10:32→13:49)
[2021-09-19] MEDS ORDERED: Ondansetron PF 4 MG/2 ML Vial ONE (10:50)
[2021-09-19] MEDS ORDERED: Lidocaine 1% PF 5 ML VIAL ONE (10:50)
[2021-09-19] MEDS ORDERED: PROPOFOL 200 MG/20 ML VIAL ONE (10:50)
[2021-09-19] MEDS ORDERED: ePHEDrine 50 MG/ML VIAL ONE (10:50)
[2021-09-19] MEDS ORDERED: PHENYLEPHRINE-NS 100 MCG/ML 10 ML SYRINGE ONE (10:50)
[2021-09-19] MEDS ORDERED: Dexamethasone 20 MG/5 ML VIAL ONE (10:50)
[2021-09-19] MEDS ORDERED: HYDROmorphone 2 MG/ML VIAL ONE (11:35)
[2021-09-19] MEDS ORDERED: Promethazine HCl 25 MG/ML VIAL IM PRN (12:38)
[2021-09-19] MEDS ORDERED: Promethazine HCl 25 MG/ML VIAL IVPB PRN (12:38)
[2021-09-19] MEDS ORDERED: PACU-Morphine 4MG/ML VIAL SLOW IVP PRN (12:38)
[2021-09-19] MEDS ORDERED: HYDROcodone/Acetaminophen 5/325 mg Tablet PO PRN (12:48)
[2021-09-19] MEDS ORDERED: RENALLY DOSE ABX FS SCH (13:00)
[2021-09-19] MEDS: Clindamycin/D5W 900 MG in Premix Bag 1 BAG IVPB SCH (19:25)
[2021-09-19] MEDS: Aspirin 81 mg Enteric Coated Tablet PO SCH (21:20)
[2021-09-19] MEDS: HYDROcodone/Acetaminophen 5/325 mg Tablet PO PRN (23:44)
[2021-09-20] MEDS: Clindamycin/D5W 900 MG in Premix Bag 1 BAG IVPB SCH ×2 (02:13→10:35)
[2021-09-20 04:45] LABS: #Lymphocytes 1.7 thou/uL (1.20-3.40); #Monocytes 0.9 thou/uL (0.11-0.59); #Neutrophils 3.9 thou/uL (1.40-6.50); %Basophils 0.7 % (0.0-1.0); %Eosinophils 0.1 % (0.0-10.0); %Lymphocytes 25.7 % (21.0-51.0); %Monocytes 13.3 % (0.0-10.0); %Neutrophils 60.2 % (42.0-75.0); Hemoglobin 9.5 g/dL (12.0-16.0); Mean Corpuscular HGB CONC 33.2 g/dL (32.0-36.0); Mean Corpuscular Hemoglobin 26.6 pg (27.0-31.0); Mean Corpuscular Volume 80.2 fL (78.0-98.0); Mean Platelet Volume 8.9 fL (7.4-10.4); Platelet Count 164 thou/uL (130-400); RBC Distribution Width 17.2 % (11.5-14.5); Red Blood Cell (RBC) Count 3.58 mill/uL (4.20-5.40); White Blood Cell (WBC) Count 6.4 thou/uL (4.8-10.8)
[2021-09-20] MEDS ORDERED: Acetaminophen 500 MG TAB PO PRN (08:19)
[2021-09-20] MEDS: Carvedilol 3.125 MG TAB PO SCH ×2 (09:34→16:34)
[2021-09-20] MEDS: Gabapentin 400 MG CAP PO SCH ×2 (09:34→20:12)
[2021-09-20] MEDS: Furosemide 20 MG TAB PO SCH (09:34)
[2021-09-20] MEDS: Aspirin 81 mg Enteric Coated Tablet PO SCH ×2 (09:34→20:11)
[2021-09-20] MEDS: Lisinopril 20 MG TAB PO SCH ×2 (09:35→20:13)
[2021-09-20 11:08] LABS: Bilirubin Negative (Negative); Blood, Urine 1+ (Negative); Clarity Clear (Clear); Glucose, Urine (Dipstick) Normal (Negative); Ketone, Urine Negative (Negative); Leukocyte 500 Leu/uL (Negative); Nitrite Negative (Negative); Protein, Urine (Dipstick) Negative (Neg-Trace); Specific Gravity, Urine 1.017 (1.002-1.036); Squamous Epithelial 0-3 HPF (0-3); Urobilinogen Normal mg/dL (Less than 2)
[2021-09-20 11:12] LABS: Bacteria/HPF 1+ HPF (None Seen)
[2021-09-20 11:14] LABS: Urine Culture Reflex Yes Yes
[2021-09-20] MEDS: Acetaminophen 500 MG TAB PO PRN (13:48)
[2021-09-20] MEDS: HYDROcodone/Acetaminophen 5/325 mg Tablet PO PRN (18:28)
[2021-09-20] MEDS ORDERED: Atorvastatin Calcium 10 MG TAB PO SCH (21:00)
[2021-09-20] MEDS ORDERED: Baclofen 10 MG TAB PO SCH (21:00)
[2021-09-21] MEDS: HYDROcodone/Acetaminophen 5/325 mg Tablet PO PRN (00:29)
[2021-09-21] MEDS ORDERED: Acetaminophen 500 MG TAB PO PRN (07:50)
[2021-09-21] MEDS ORDERED: Rizatriptan Benzoate 10 MG MLT TAB PO PRN (07:50)
[2021-09-21] MEDS ORDERED: Carvedilol 3.125 MG TAB PO SCH (08:00)
[2021-09-21] MEDS ORDERED: ROMOSOZUMAB AQQG 105 MG/1.17 ML SC SCH (08:00)
[2021-09-21 08:53] LABS: Anion Gap 12 mmol/L (10-20); BUN (Urea Nitrogen) 9 mg/dL (9.8-20.1); Calc. Creatinine Clearance 61 mL/min (70-130); Calcium 7.9 mg/dL (7.8-10.44); Carbon Dioxide 22 mmol/L (23-31); Chloride 106 mmol/L (98-107); Glucose 94 mg/dL (83-110); Potassium 3.7 mmol/L (3.5-5.1); Sodium 136 mmol/L (136-145)
[2021-09-21 08:55] LABS: Band 4 % (5-11); Hemoglobin 9.9 g/dL (12.0-16.0); Lymphocytes 56 % (21-51); MDiff Complete? YES; Mean Corpuscular HGB CONC 32.5 g/dL (32.0-36.0); Mean Corpuscular Hemoglobin 26.5 pg (27.0-31.0); Mean Corpuscular Volume 81.3 fL (78.0-98.0); Mean Platelet Volume 8.7 fL (7.4-10.4); Monocytes 13 % (0-10); Neutrophil 27 % (42-75); Platelet Count 153 thou/uL (130-400); RBC Distribution Width 17.6 % (11.5-14.5); Red Blood Cell (RBC) Count 3.72 mill/uL (4.20-5.40); White Blood Cell (WBC) Count 7.3 thou/uL (4.8-10.8)
[2021-09-21] MEDS ORDERED: Lisinopril 20 MG TAB PO SCH (09:00)
[2021-09-21] MEDS ORDERED: Furosemide 20 MG TAB PO SCH (09:00)
[2021-09-21] MEDS: Gabapentin 400 MG CAP PO SCH ×3 (09:10→20:18)
[2021-09-21] MEDS: Enoxaparin Sodium 30 MG/0.3 ML SYRINGE SC SCH (09:18)
[2021-09-21] MEDS: Aspirin 81 mg Enteric Coated Tablet PO SCH ×2 (09:19→20:18)
[2021-09-21] MEDS: Furosemide 20 MG TAB PO SCH (09:20)
[2021-09-21] MEDS: predniSONE 5 MG TAB PO SCH (09:20)
[2021-09-21] MEDS: Lisinopril 20 MG TAB PO SCH ×2 (09:21→20:18)
[2021-09-21] MEDS: Carvedilol 3.125 MG TAB PO SCH ×2 (09:21→17:03)
[2021-09-21] MEDS: Acetaminophen 500 MG TAB PO PRN (09:22)
[2021-09-21] MEDS: Potassium Chloride 10 MEQ TAB PO SCH (09:22)
[2021-09-21] MEDS: traMADol HCl 50 MG TAB PO PRN ×2 (10:49→20:19)
[2021-09-21] MEDS: cefTRIAXone\\ROCEPHIN 1 GM in Sodium Chloride 0.9% 100 ML IVPB SCH (11:39)
[2021-09-21] MEDS ORDERED: Sodium Chloride 0.9% 500 ML IV SCH (14:45)
[2021-09-21] MEDS ORDERED: Warfarin Sodium 2 MG TAB PO SCH (17:00)
[2021-09-21] MEDS: Atorvastatin Calcium 10 MG TAB PO SCH (20:18)
[2021-09-21] MEDS ORDERED: Baclofen 10 MG TAB PO SCH (21:00)
[2021-09-22 06:29] LABS: INR-International Normal Ratio 1.1; Prothrombin Time 14.8 sec (12.0-14.7)
[2021-09-22 06:31] LABS: Hemoglobin 8.1 g/dL (12.0-16.0); Mean Corpuscular HGB CONC 32.5 g/dL (32.0-36.0); Mean Corpuscular Hemoglobin 26.6 pg (27.0-31.0); Mean Corpuscular Volume 81.8 fL (78.0-98.0); Mean Platelet Volume 8.5 fL (7.4-10.4); Platelet Count 151 thou/uL (130-400); Red Blood Cell (RBC) Count 3.04 mill/uL (4.20-5.40); White Blood Cell (WBC) Count 5.7 thou/uL (4.8-10.8)
[2021-09-22 06:44] LABS: Anion Gap 10 mmol/L (10-20); BUN (Urea Nitrogen) 10 mg/dL (9.8-20.1); Calc. Creatinine Clearance 68 mL/min (70-130); Calcium 8.2 mg/dL (7.8-10.44); Carbon Dioxide 23 mmol/L (23-31); Chloride 107 mmol/L (98-107); Glucose 87 mg/dL (83-110); Potassium 3.7 mmol/L (3.5-5.1); Sodium 136 mmol/L (136-145)
[2021-09-22 07:03] LABS: Lymphocytes 55 % (21-51); MDiff Complete? YES; Monocytes 12 % (0-10); Neutrophil 33 % (42-75)
[2021-09-22] MEDS: predniSONE 5 MG TAB PO SCH (08:20)
[2021-09-22] MEDS: Lisinopril 20 MG TAB PO SCH ×2 (08:20→20:38)
[2021-09-22] MEDS: Potassium Chloride 10 MEQ TAB PO SCH (08:20)
[2021-09-22] MEDS: Aspirin 81 mg Enteric Coated Tablet PO SCH (08:20)
[2021-09-22] MEDS: Carvedilol 3.125 MG TAB PO SCH ×2 (08:20→17:10)
[2021-09-22] MEDS: Enoxaparin Sodium 30 MG/0.3 ML SYRINGE SC SCH ×2 (08:21→20:35)
[2021-09-22] MEDS: Acetaminophen 500 MG TAB PO PRN ×2 (08:21→17:11)
[2021-09-22] MEDS: Gabapentin 400 MG CAP PO SCH ×2 (08:21→20:36)
[2021-09-22] MEDS: cefTRIAXone\\ROCEPHIN 1 GM in Sodium Chloride 0.9% 100 ML IVPB SCH (12:15)
[2021-09-22] MEDS: traMADol HCl 50 MG TAB PO PRN ×2 (12:22→20:36)
[2021-09-22] MEDS ORDERED: Warfarin Sodium 2 MG TAB PO SCH ×2 (17:00)
[2021-09-22] MEDS: Atorvastatin Calcium 10 MG TAB PO SCH (20:36)
[2021-09-23 05:33] LABS: Hemoglobin 8.3 g/dL (12.0-16.0); Mean Corpuscular HGB CONC 32.1 g/dL (32.0-36.0); Mean Corpuscular Hemoglobin 26.1 pg (27.0-31.0); Mean Corpuscular Volume 81.3 fL (78.0-98.0); Mean Platelet Volume 8.2 fL (7.4-10.4); Platelet Count 176 thou/uL (130-400); RBC Distribution Width 17.6 % (11.5-14.5); Red Blood Cell (RBC) Count 3.19 mill/uL (4.20-5.40); White Blood Cell (WBC) Count 4.1 thou/uL (4.8-10.8)
[2021-09-23 05:39] LABS: Anion Gap 10 mmol/L (10-20); BUN (Urea Nitrogen) 11 mg/dL (9.8-20.1); Calc. Creatinine Clearance 68 mL/min (70-130); Calcium 8.5 mg/dL (7.8-10.44); Carbon Dioxide 27 mmol/L (23-31); Chloride 108 mmol/L (98-107); Glucose 87 mg/dL (83-110); Potassium 3.9 mmol/L (3.5-5.1); Sodium 141 mmol/L (136-145)
[2021-09-23 05:42] LABS: INR-International Normal Ratio 1.1; Prothrombin Time 13.8 sec (12.0-14.7)
[2021-09-23 06:20] LABS: Band 1 % (5-11); Lymphocytes 51 % (21-51); MDiff Complete? YES; Monocytes 16 % (0-10); Neutrophil 32 % (42-75)
[2021-09-23] MEDS: Carvedilol 3.125 MG TAB PO SCH ×2 (07:38→16:16)
[2021-09-23] MEDS ORDERED: PROPOFOL 200 MG/20 ML VIAL ONE (08:57)
[2021-09-23] MEDS ORDERED: Fentanyl 100 MCG/2 ML VIAL ONE (09:15)
[2021-09-23] MEDS: Potassium Chloride 10 MEQ TAB PO SCH (10:22)
[2021-09-23] MEDS: predniSONE 5 MG TAB PO SCH (10:22)
[2021-09-23] MEDS: Gabapentin 400 MG CAP PO SCH ×2 (10:23→21:16)
[2021-09-23] MEDS: Lisinopril 20 MG TAB PO SCH ×2 (10:24→21:16)
[2021-09-23] MEDS: Enoxaparin Sodium 30 MG/0.3 ML SYRINGE SC SCH ×2 (10:24→21:17)
[2021-09-23] MEDS: cefTRIAXone\\ROCEPHIN 1 GM in Sodium Chloride 0.9% 100 ML IVPB SCH (10:30)
[2021-09-23] MEDS ORDERED: [UNRECOGNIZED DRUG - REMARK] PO PRN (12:24)
[2021-09-23] MEDS: traMADol HCl 50 MG TAB PO PRN ×2 (12:27→21:15)
[2021-09-23] MEDS ORDERED: Warfarin Sodium 2 MG TAB PO SCH (17:00)
[2021-09-23] MEDS: Famotidine 20 MG TAB PO SCH (21:16)
[2021-09-23] MEDS: Atorvastatin Calcium 10 MG TAB PO SCH (21:17)
[2021-09-24 06:16] LABS: Prothrombin Time 13.6 sec (12.0-14.7)
[2021-09-24 06:19] LABS: Hemoglobin 8.7 g/dL (12.0-16.0); Mean Corpuscular HGB CONC 31.8 g/dL (32.0-36.0); Mean Corpuscular Hemoglobin 25.4 pg (27.0-31.0); Mean Platelet Volume 8.4 fL (7.4-10.4); Platelet Count 202 thou/uL (130-400); RBC Distribution Width 17.8 % (11.5-14.5); Red Blood Cell (RBC) Count 3.43 mill/uL (4.20-5.40); White Blood Cell (WBC) Count 4.8 thou/uL (4.8-10.8)
[2021-09-24 06:24] LABS: Anion Gap 11 mmol/L (10-20); BUN (Urea Nitrogen) 6 mg/dL (9.8-20.1); Calc. Creatinine Clearance 68 mL/min (70-130); Calcium 8.3 mg/dL (7.8-10.44); Carbon Dioxide 27 mmol/L (23-31); Chloride 103 mmol/L (98-107); Glucose 84 mg/dL (83-110); Potassium 3.7 mmol/L (3.5-5.1); Sodium 137 mmol/L (136-145)
[2021-09-24 07:02] LABS: Band 2 % (5-11); Eosinophils 2 % (0-10); Lymphocytes 57 % (21-51); MDiff Complete? YES; Monocytes 22 % (0-10); Neutrophil 14 % (42-75); Reactive Lymphocytes 2 % (0-10)
[2021-09-24] MEDS: Carvedilol 3.125 MG TAB PO SCH (08:04)
[2021-09-24] MEDS: Enoxaparin Sodium 30 MG/0.3 ML SYRINGE SC SCH (08:04)
[2021-09-24] MEDS: Gabapentin 400 MG CAP PO SCH (08:05)
[2021-09-24] MEDS: Famotidine 20 MG TAB PO SCH (08:05)
[2021-09-24] MEDS: Lisinopril 20 MG TAB PO SCH (08:05)
[2021-09-24] MEDS: Potassium Chloride 10 MEQ TAB PO SCH (08:06)
[2021-09-24] MEDS: predniSONE 5 MG TAB PO SCH (08:06)
[2021-09-24] MEDS ORDERED: Loratadine 10 MG TAB PO SCH (09:00)
[2021-09-24] MEDS ORDERED: Acyclovir 400 mg Tablet PO SCH (09:00)
[2021-09-24] MEDS: Nystatin 500,000 UNITS/5 ML UDCUP SSW SCH ×2 (09:41→13:17)
[2021-09-24 11:57] VITALS: BP 133/66; TEMP 98.5
[2021-09-24] MEDS: Acetaminophen 500 MG TAB PO PRN (13:17)
[2021-09-24] MEDS ORDERED: Warfarin Sodium 5 MG TAB PO SCH (17:00)
[2021-09-24] MEDS ORDERED: Warfarin Sodium 2 MG TAB PO SCH (17:00)
[2021-09-25] MEDS ORDERED: Warfarin Sodium 2 MG TAB PO SCH (17:00)
[2021-09-26] MEDS ORDERED: Warfarin Sodium 2 MG TAB PO SCH (17:00)
== END 2021-09-24 13:55 | disposition home health service (06) | DRG 481 ==
LOC: SDC 08:01 → SJJU 12:55
PROVIDERS: ADMIT Orthopaedic Surgery; ATTEND Family Medicine
PROC: 0QS606Z Reposition Right Upper Femur with Intramedullary Internal Fixation Device, Open Approach (ICD-10-PCS; principal; 2021-09-19)
PROC: 0QP604Z Removal of Internal Fixation Device from Right Upper Femur, Open Approach (ICD-10-PCS; 2021-09-19)
PROC: 0DJ08ZZ Inspection of Upper Intestinal Tract, Via Natural or Artificial Opening Endoscopic (ICD-10-PCS; 2021-09-23)
DX: S72.21XK Displaced subtrochanteric fracture of right femur, subsequent encounter for closed fracture with nonunion (principal); N30.00 Acute cystitis without hematuria; K44.9 Diaphragmatic hernia without obstruction or gangrene; I25.10 Atherosclerotic heart disease of native coronary artery without angina pectoris; M32.9 Systemic lupus erythematosus, unspecified; I10 Essential (primary) hypertension; M06.9 Rheumatoid arthritis, unspecified; G43.909 Migraine, unspecified, not intractable, without status migrainosus; E78.5 Hyperlipidemia, unspecified; G62.9 Polyneuropathy, unspecified; I73.9 Peripheral vascular disease, unspecified; D64.9 Anemia, unspecified; K21.9 Gastro-esophageal reflux disease without esophagitis; B00.9 Herpesviral infection, unspecified; J02.9 Acute pharyngitis, unspecified; R19.5 Other fecal abnormalities; Z86.73 Personal history of transient ischemic attack (TIA), and cerebral infarction without residual deficits; Z86.711 Personal history of pulmonary embolism; Z86.718 Personal history of other venous thrombosis and embolism; Z79.01 Long term (current) use of anticoagulants; W18.30XD Fall on same level, unspecified, subsequent encounter; Z88.0 Allergy status to penicillin; Z88.8 Allergy status to other drugs, medicaments and biological substances; Z91.018 Allergy to other foods; Z79.899 Other long term (current) drug therapy; Z90.49 Acquired absence of other specified parts of digestive tract; Z90.710 Acquired absence of both cervix and uterus; Z85.72 Personal history of non-Hodgkin lymphomas
CPT/HCPCS: 36415; 71045; 76000; 80048; 81001; 82274; 85025; 85610; 85730; 87086; C1713; J0696; J1100; J1170; J1650; J1956; J2405; J2704; J3010; J3490; J7030; J7512; S0028

== ENCOUNTER 2021-10-23 14:42 | Outpatient (CLI) | payer MEDICARE | END 2021-10-23 14:43 | disposition home or self-care (01) | LOC: BICULT 14:42 | PROVIDERS: ATTEND Urology | DX: Q61.3 Polycystic kidney, unspecified (principal) | CPT/HCPCS: 76770 ==

== ENCOUNTER 2022-03-23 06:59 | Emergency (ER) | payer MEDICARE ==
[2022-03-23 09:13] LABS: PTT 60.5 sec (22.9-36.1); Prothrombin Time 43.4 sec (12.0-14.7)
[2022-03-23 09:17] LABS: INR-International Normal Ratio 4.4
[2022-03-23 09:22] LABS: Hemoglobin 10.9 g/dL (12.0-16.0); Mean Corpuscular HGB CONC 30.8 g/dL (32.0-36.0); Mean Corpuscular Hemoglobin 24.7 pg (27.0-31.0); Mean Corpuscular Volume 80.3 fL (78.0-98.0); Mean Platelet Volume 9.2 fL (7.4-10.4); Platelet Count 221 thou/uL (130-400); RBC Distribution Width 18.7 % (11.5-14.5); Red Blood Cell (RBC) Count 4.41 mill/uL (4.20-5.40); White Blood Cell (WBC) Count 5.2 thou/uL (4.8-10.8)
[2022-03-23 09:25] LABS: ALT (SGPT) 21 U/L (8-55); AST (SGOT) 38 U/L (5-34); Albumin 3.6 g/dL (3.4-4.8); Alkaline Phosphatase 65 U/L (40-110); Anion Gap 11 mmol/L (10-20); BUN (Urea Nitrogen) 12 mg/dL (9.8-20.1); Bilirubin, Total 0.4 mg/dL (0.2-1.2); Calc. Creatinine Clearance 0 mL/min (70-130); Calcium 9.1 mg/dL (7.8-10.44); Carbon Dioxide 28 mmol/L (23-31); Chloride 108 mmol/L (98-107); Glucose 85 mg/dL (83-110); Potassium 4.2 mmol/L (3.5-5.1); Protein, Total 5.6 g/dL (5.8-8.1); Sodium 143 mmol/L (136-145)
[2022-03-23 10:31] LABS: Eosinophils 4 % (0-10); Lymphocytes 58 % (21-51); MDiff Complete? YES; Monocytes 12 % (0-10); Neutrophil 25 % (42-75); Platelet Morphology Comment Appears Adequate; Polychromasia SLIGHT = 2-3 cells (100X) (0-2/hpf)
== END 2022-03-23 10:40 | disposition home or self-care (01) ==
LOC: ERS 06:59
DX: M79.81 Nontraumatic hematoma of soft tissue (principal); R79.1 Abnormal coagulation profile; Z86.711 Personal history of pulmonary embolism; E78.5 Hyperlipidemia, unspecified; E78.00 Pure hypercholesterolemia, unspecified; I10 Essential (primary) hypertension; Z86.73 Personal history of transient ischemic attack (TIA), and cerebral infarction without residual deficits; Z79.01 Long term (current) use of anticoagulants; Z79.899 Other long term (current) drug therapy
CPT/HCPCS: 36415; 80053; 85025; 85610; 85730

== ENCOUNTER 2022-05-05 00:07 | Inpatient (IN) | payer MEDICARE ==
[2022-05-05 01:30] LABS: Bilirubin Negative (Negative); Blood, Urine Negative (Negative); Clarity Clear (Clear); Glucose, Urine (Dipstick) Normal (Negative); Ketone, Urine Negative (Negative); Leukocyte Negative Leu/uL (Negative); Nitrite Negative (Negative); Protein, Urine (Dipstick) Negative (Neg-Trace); Specific Gravity, Urine 1.016 (1.002-1.036); Urobilinogen Normal mg/dL (Less than 2)
[2022-05-05 01:43] LABS: #Basophils 0.1 thou/uL (0.0-0.2); #Eosinphils 0.1 thou/uL (0.0-0.7); #Lymphocytes 3.5 thou/uL (1.20-3.40); #Monocytes 0.9 thou/uL (0.11-0.59); #Neutrophils 3.6 thou/uL (1.40-6.50); %Basophils 0.6 % (0.0-1.0); %Eosinophils 1.5 % (0.0-10.0); %Lymphocytes 42.3 % (21.0-51.0); %Monocytes 11.3 % (0.0-10.0); %Neutrophils 44.2 % (42.0-75.0); Hemoglobin 12.4 g/dL (12.0-16.0); Mean Corpuscular HGB CONC 31.5 g/dL (32.0-36.0); Mean Corpuscular Hemoglobin 26.3 pg (27.0-31.0); Mean Corpuscular Volume 83.7 fL (78.0-98.0); Mean Platelet Volume 8.6 fL (7.4-10.4); Platelet Count 192 thou/uL (130-400); RBC Distribution Width 16.9 % (11.5-14.5); Red Blood Cell (RBC) Count 4.71 mill/uL (4.20-5.40); White Blood Cell (WBC) Count 8.2 thou/uL (4.8-10.8)
[2022-05-05 02:01] LABS: Albumin 4.2 g/dL (3.4-4.8); Anion Gap 15 mmol/L (10-20); BUN (Urea Nitrogen) 17 mg/dL (9.8-20.1); Bilirubin, Total 0.5 mg/dL (0.2-1.2); Calc. Creatinine Clearance 0 mL/min (70-130); Calcium 9.8 mg/dL (7.8-10.44); Carbon Dioxide 28 mmol/L (23-31); Chloride 103 mmol/L (98-107); Estimated GFR 47; Globulin 2.2 g/dL (2.4-3.5); Glucose 94 mg/dL (83-110); Potassium 4.1 mmol/L (3.5-5.1); Protein, Total 6.4 g/dL (5.8-8.1); Sodium 142 mmol/L (136-145)
[2022-05-05 02:02] LABS: ALT (SGPT) 27 U/L (8-55); AST (SGOT) 49 U/L (5-34); Alkaline Phosphatase 76 U/L (40-110); Lipase 54 U/L (8-78); Magnesium 1.8 mg/dL (1.6-2.6)
[2022-05-05 02:15] LABS: INR-International Normal Ratio 1.4; PTT 26.4 sec (22.9-36.1)
[2022-05-05] MEDS ORDERED: Cefepime 2 GM VIAL ONE (02:49)
[2022-05-05] MEDS ORDERED: Vancomycin 1 GM/200 ML BAG ONE (02:49)
[2022-05-05] MEDS ORDERED: PROPOFOL 20 ML ONE (02:49)
[2022-05-05] MEDS ORDERED: Acetaminophen 500 MG TAB ONE (02:49)
[2022-05-05] MEDS ORDERED: Acetaminophen 325 MG Suppository ONE (02:51)
[2022-05-05] MEDS ORDERED: Acetaminophen 650 MG Suppository ONE (02:51)
[2022-05-05] MEDS ORDERED: Rocuronium Bromide 10 MG/ML (10ML VIAL) ONE (03:09)
[2022-05-05] MEDS ORDERED: Propofol 1,000 MG/100 ML VIAL IV ONE (03:25)
[2022-05-05 03:50] LABS: SARS-CoV-2 NAA Rapid Test DETECTED (NotDetected)
[2022-05-05 03:51] LABS: Analyzer IN Cardio ER; Base Excess (BEa) -1.8 mEq/L (-2.0 to +3.0); CO2 Tension 34.1 mmHg (35.0-45.0); Calcium, Ionized (arterial) 1.09 mmol/L (1.12-1.30); Carboxyhemoglobin (COHb) 0.3 gm% (0.0-3.0); Hemoglobin (Hb) 11.4 g/dL (12.0-16.0); O2 Tension (PaO2), arterial 61.8 mmHg (> 70.0); Potassium - ABG Lab 3.55 mmol/L (3.70-5.30); pH, Arterial 7.43 (7.35-7.45)
[2022-05-05 03:52] LABS: Puncture Site LBA
[2022-05-05 03:53] LABS: ALV-art Gradient 109.475 mmHg (0-20)
[2022-05-05] MEDS ORDERED: Dexamethasone 10 MG/ML VIAL ONE (04:01)
[2022-05-05] MEDS ORDERED: Acetaminophen 325 MG TAB PO PRN (04:49)
[2022-05-05] MEDS ORDERED: Acetaminophen 650 MG Suppository PR PRN (04:49)
[2022-05-05 04:53] LABS: Lactic Acid 2.7 mmol/L (0.5-2.2)
[2022-05-05 05:02] LABS: Troponin I 0.215 ng/mL (< 0.028)
[2022-05-05] MEDS ORDERED: Propofol BOLUS 1,000 MG/100 ML VIAL IV PRN (07:30)
[2022-05-05] MEDS ORDERED: Lorazepam 2 MG/ML VIAL SLOW IVP PRN (07:30)
[2022-05-05] MEDS ORDERED: DISCONTINUE PREVIOUS NARCOTIC PAIN MEDICATIONS AND BENZODIAZEPINES FS SCH (07:30)
[2022-05-05] MEDS ORDERED: Propofol 1,000 MG/100 ML VIAL IV PRN (07:30)
[2022-05-05] MEDS ORDERED: Sodium Chloride 0.9% 1,000 ML IV SCH ×2 (07:30)
[2022-05-05] MEDS ORDERED: Fentanyl BOLUS 250 ML IVPB PRN (07:30)
[2022-05-05] MEDS ORDERED: fentaNYL Citrate/PF 2,000 MCG in Sodium Chloride 0.9% 60 ML IV SCH (07:30)
[2022-05-05 09:18] LABS: Troponin I 0.947 ng/mL (< 0.028)
[2022-05-05] MEDS: Pantoprazole 40 MG VIAL IVP SCH (09:32)
[2022-05-05] MEDS: Apixaban 5 MG TAB PO SCH ×2 (09:33→19:34)
[2022-05-05 11:33] LABS: Lactic Acid 1.5 mmol/L (0.5-2.2)
[2022-05-05] MEDS: Metoclopramide HCl 10 MG/2 ML VIAL IVP SCH ×3 (13:32→19:34)
[2022-05-05] MEDS: Morphine 4 MG/ML VIAL SLOW IVP PRN (14:45)
[2022-05-05] MEDS: Cefepime 2 GM in Sodium Chloride 0.9% 100 ML IVPB SCH (16:00)
[2022-05-05] MEDS ORDERED: VANCOMYCIN 1.25 GM/250 ML BAG IVPB SCH (16:00)
[2022-05-05] MEDS: VANCOMYCIN 1.25 GM/250 ML BAG 1.25 GM in Premix Bag 1 BAG IVPB SCH (16:02)
[2022-05-05] MEDS: Sodium Chloride 0.9% 1,000 ML IV SCH ×2 (16:40→19:56)
[2022-05-05] MEDS ORDERED: Midazolam HCl 2 mg/2 ml Vial SLOW IVP PRN (17:00)
[2022-05-06] MEDS: Metoclopramide HCl 10 MG/2 ML VIAL IVP SCH ×5 (00:15→23:30)
[2022-05-06] MEDS: Morphine 4 MG/ML VIAL SLOW IVP PRN (01:37)
[2022-05-06] MEDS: Dexamethasone 10 MG/ML VIAL SLOW IVP SCH (03:38)
[2022-05-06] MEDS: Cefepime 2 GM in Sodium Chloride 0.9% 100 ML IVPB SCH ×2 (03:39→15:40)
[2022-05-06] MEDS: VANCOMYCIN 1.25 GM/250 ML BAG 1.25 GM in Premix Bag 1 BAG IVPB SCH (03:39)
[2022-05-06 04:11] LABS: Hemoglobin 9.9 g/dL (12.0-16.0); Mean Corpuscular HGB CONC 32.5 g/dL (32.0-36.0); Mean Corpuscular Hemoglobin 26.8 pg (27.0-31.0); Mean Corpuscular Volume 82.6 fL (78.0-98.0); Mean Platelet Volume 8.9 fL (7.4-10.4); Platelet Count 139 thou/uL (130-400); RBC Distribution Width 17.2 % (11.5-14.5); Red Blood Cell (RBC) Count 3.68 mill/uL (4.20-5.40); White Blood Cell (WBC) Count 4.9 thou/uL (4.8-10.8)
[2022-05-06 05:12] LABS: Anion Gap 11 mmol/L (10-20); BUN (Urea Nitrogen) 15 mg/dL (9.8-20.1); Calc. Creatinine Clearance 67 mL/min (70-130); Calcium 7.3 mg/dL (7.8-10.44); Carbon Dioxide 19 mmol/L (23-31); Chloride 116 mmol/L (98-107); Estimated GFR 90; Glucose 100 mg/dL (83-110); Potassium 3.3 mmol/L (3.5-5.1); Sodium 143 mmol/L (136-145)
[2022-05-06] MEDS: Sodium Chloride 0.9% 1,000 ML IV SCH (06:38)
[2022-05-06 07:57] LABS: Actual Bicarbonate (HCO3a) 17.3 mEq/L (22-28); Base Excess (BEa) -4.8 mEq/L (-2.0 to +3.0); Calcium, Ionized (arterial) 1.04 mmol/L (1.12-1.30); Carboxyhemoglobin (COHb) 0.3 gm% (0.0-3.0); Hemoglobin (Hb) 10.9 g/dL (12.0-16.0); O2 Tension (PaO2), arterial 141.8 mmHg (> 70.0); pH, Arterial 7.48 (7.35-7.45)
[2022-05-06] MEDS: Pantoprazole 40 MG VIAL IVP SCH (08:25)
[2022-05-06] MEDS: Apixaban 5 MG TAB PO SCH ×2 (08:25→20:22)
[2022-05-06 08:57] LABS: Puncture Site LBA
[2022-05-06] MEDS: Potassium Chloride 20 MEQ in Premix Bag 1 BAG IVPB SCH ×2 (09:23→11:50)
[2022-05-06] MEDS ORDERED: DC Sedation Protocol FS ONE (11:01)
[2022-05-06] MEDS: Lactated Ringer's 1,000 ML IV SCH (11:49)
[2022-05-06] MEDS: Labetalol HCl 100 MG/20 ML VIAL SLOW IVP PRN ×3 (11:50→20:36)
[2022-05-06] MEDS: Carvedilol 3.125 MG TAB PO SCH (16:02)
[2022-05-06] MEDS: Atorvastatin Calcium 10 MG TAB PO SCH (20:22)
[2022-05-06] MEDS: Lisinopril 20 MG TAB PO SCH (20:22)
[2022-05-07] MEDS: Labetalol HCl 100 MG/20 ML VIAL SLOW IVP PRN ×3 (01:10→23:28)
[2022-05-07] MEDS: Lactated Ringer's 1,000 ML IV SCH (01:54)
[2022-05-07] MEDS: Cefepime 2 GM in Sodium Chloride 0.9% 100 ML IVPB SCH ×2 (03:27→15:45)
[2022-05-07] MEDS: Dexamethasone 10 MG/ML VIAL SLOW IVP SCH (03:28)
[2022-05-07] MEDS ORDERED: VANCOMYCIN 1.25 GM/250 ML BAG 1.25 GM in Premix Bag 1 BAG IVPB SCH (04:00)
[2022-05-07] MEDS ORDERED: Ipratropium Bromide 2.5 ml Neb ONE (04:53)
[2022-05-07] MEDS ORDERED: Racepinephrine 2.25% 0.5 ML NEB ONE (04:53)
[2022-05-07 05:23] LABS: #Basophils 0.1 thou/uL (0.0-0.2); #Lymphocytes 3.4 thou/uL (1.20-3.40); #Neutrophils 6.4 thou/uL (1.40-6.50); %Basophils 0.9 % (0.0-1.0); %Eosinophils 0.1 % (0.0-10.0); %Lymphocytes 31.2 % (21.0-51.0); %Monocytes 9.1 % (0.0-10.0); %Neutrophils 58.8 % (42.0-75.0); Mean Corpuscular HGB CONC 30.9 g/dL (32.0-36.0); Mean Corpuscular Hemoglobin 25.8 pg (27.0-31.0); Mean Corpuscular Volume 83.5 fL (78.0-98.0); Mean Platelet Volume 10.3 fL (7.4-10.4); Platelet Count 161 thou/uL (130-400); RBC Distribution Width 17.5 % (11.5-14.5); Red Blood Cell (RBC) Count 4.27 mill/uL (4.20-5.40); White Blood Cell (WBC) Count 10.9 thou/uL (4.8-10.8)
[2022-05-07] MEDS ORDERED: Furosemide 40 MG/4 ML VIAL SLOW IVP SCH (05:30)
[2022-05-07] MEDS: Metoclopramide HCl 10 MG/2 ML VIAL IVP SCH (05:37)
[2022-05-07 05:52] LABS: ALT (SGPT) 83 U/L (8-55); AST (SGOT) 101 U/L (5-34); Albumin 3.2 g/dL (3.4-4.8); Alkaline Phosphatase 65 U/L (40-110); Anion Gap 12 mmol/L (10-20); BUN (Urea Nitrogen) 16 mg/dL (9.8-20.1); Bilirubin, Total 0.7 mg/dL (0.2-1.2); Calc. Creatinine Clearance 68 mL/min (70-130); Carbon Dioxide 20 mmol/L (23-31); Chloride 114 mmol/L (98-107); Estimated GFR 90; Glucose 112 mg/dL (83-110); Magnesium 1.8 mg/dL (1.6-2.6); Protein, Total 5.2 g/dL (5.8-8.1); Sodium 142 mmol/L (136-145)
[2022-05-07 05:54] LABS: Critical Call Chem Troponin I RESULT DECREASING; Troponin I 0.573 ng/mL (< 0.028)
[2022-05-07] MEDS: Apixaban 5 MG TAB PO SCH ×2 (08:57→20:40)
[2022-05-07] MEDS: Carvedilol 3.125 MG TAB PO SCH ×2 (08:57→15:53)
[2022-05-07] MEDS: Cholecalciferol 1,000 UNITS (25 MCG) TAB PO SCH (08:58)
[2022-05-07] MEDS: Folic Acid 1 MG TAB PO SCH (08:58)
[2022-05-07] MEDS: predniSONE 5 MG TAB PO SCH (08:58)
[2022-05-07] MEDS: Pantoprazole 40 MG VIAL IVP SCH (08:59)
[2022-05-07] MEDS: Lisinopril 20 MG TAB PO SCH ×2 (08:59→20:40)
[2022-05-07] MEDS ORDERED: Lactated Ringer's 1,000 ML IV SCH (15:07)
[2022-05-07] MEDS: Acetaminophen 500 MG TAB PO PRN (15:51)
[2022-05-07] MEDS ORDERED: Melatonin 3 MG TAB PO SCH (20:00)
[2022-05-07] MEDS: Atorvastatin Calcium 10 MG TAB PO SCH (20:40)
[2022-05-08] MEDS: Cefepime 2 GM in Sodium Chloride 0.9% 100 ML IVPB SCH ×2 (03:03→16:13)
[2022-05-08] MEDS: Dexamethasone 10 MG/ML VIAL SLOW IVP SCH (03:04)
[2022-05-08] MEDS: Ondansetron ODT 4 MG TAB PO PRN (05:01)
[2022-05-08] MEDS: Labetalol HCl 100 MG/20 ML VIAL SLOW IVP PRN ×2 (05:06→10:12)
[2022-05-08] MEDS: Apixaban 5 MG TAB PO SCH ×2 (07:48→20:35)
[2022-05-08] MEDS: predniSONE 5 MG TAB PO SCH (07:48)
[2022-05-08] MEDS: Lisinopril 20 MG TAB PO SCH ×2 (07:49→20:34)
[2022-05-08] MEDS: Carvedilol 3.125 MG TAB PO SCH ×2 (07:49→16:13)
[2022-05-08] MEDS: Folic Acid 1 MG TAB PO SCH (07:49)
[2022-05-08] MEDS: Cholecalciferol 1,000 UNITS (25 MCG) TAB PO SCH (07:49)
[2022-05-08] MEDS: Atorvastatin Calcium 10 MG TAB PO SCH (20:34)
[2022-05-09] MEDS: Cefepime 2 GM in Sodium Chloride 0.9% 100 ML IVPB SCH ×2 (03:34→16:25)
[2022-05-09 07:17] LABS: Anion Gap 12 mmol/L (10-20); BUN (Urea Nitrogen) 16 mg/dL (9.8-20.1); Calc. Creatinine Clearance 74 mL/min (70-130); Calcium 8.3 mg/dL (7.8-10.44); Carbon Dioxide 23 mmol/L (23-31); Chloride 111 mmol/L (98-107); Estimated GFR 92; Glucose 93 mg/dL (83-110); Magnesium 1.9 mg/dL (1.6-2.6); Potassium 3.3 mmol/L (3.5-5.1); Sodium 143 mmol/L (136-145)
[2022-05-09 07:24] LABS: Band 1 % (5-11); Elliptocytes SLIGHT = 2-5 cells (100X) (0-1/hpf); Hemoglobin 10.9 g/dL (12.0-16.0); Lymphocytes 19 % (21-51); MDiff Complete? YES; Mean Corpuscular Hemoglobin 26.4 pg (27.0-31.0); Mean Corpuscular Volume 82.4 fL (78.0-98.0); Mean Platelet Volume 10.3 fL (7.4-10.4); Monocytes 16 % (0-10); Neutrophil 31 % (42-75); Platelet Count 134 thou/uL (130-400); Platelet Morphology Comment Appears Adequate; Polychromasia SLIGHT = 2-3 cells (100X) (0-2/hpf); RBC Distribution Width 17.1 % (11.5-14.5); Reactive Lymphocytes 33 % (0-10); Red Blood Cell (RBC) Count 4.14 mill/uL (4.20-5.40); White Blood Cell (WBC) Count 3.9 thou/uL (4.8-10.8)
[2022-05-09] MEDS: Folic Acid 1 MG TAB PO SCH (09:38)
[2022-05-09] MEDS: Apixaban 5 MG TAB PO SCH ×2 (09:38→20:48)
[2022-05-09] MEDS: Lisinopril 20 MG TAB PO SCH ×2 (09:38→20:47)
[2022-05-09] MEDS: Cholecalciferol 1,000 UNITS (25 MCG) TAB PO SCH (09:38)
[2022-05-09] MEDS: Carvedilol 3.125 MG TAB PO SCH ×2 (09:38→16:25)
[2022-05-09] MEDS: predniSONE 5 MG TAB PO SCH (09:39)
[2022-05-09] MEDS ORDERED: Magnesium 2 GM/50 ML(in water) 2 GM in Premix Bag 1 BAG IVPB SCH (10:45)
[2022-05-09] MEDS: Potassium Chloride 20 MEQ TAB PO SCH ×2 (12:10→20:48)
[2022-05-09] MEDS: Rizatriptan Benzoate 10 MG MLT TAB PO PRN (17:40)
[2022-05-09] MEDS: Atorvastatin Calcium 10 MG TAB PO SCH (20:48)
[2022-05-10] MEDS: Labetalol HCl 100 MG/20 ML VIAL SLOW IVP PRN (03:41)
[2022-05-10] MEDS ORDERED: Albuterol Sulfate 2.5 mg/3 ml Neb NEB PRN (05:26)
[2022-05-10] MEDS: Albuterol 200 PUFF (6.7GM INHALER) INH PRN (05:37)
[2022-05-10 07:05] LABS: Hemoglobin 10.7 g/dL (12.0-16.0); Hypochromia SLIGHT = 6-15 cells (100X) (0-5/hpf); Lymphocytes 62 % (21-51); MDiff Complete? YES; Mean Corpuscular HGB CONC 33.6 g/dL (32.0-36.0); Mean Corpuscular Hemoglobin 27.5 pg (27.0-31.0); Mean Platelet Volume 10.3 fL (7.4-10.4); Monocytes 10 % (0-10); Neutrophil 24 % (42-75); Platelet Count 124 thou/uL (130-400); Platelet Morphology Comment Appears Adequate; RBC Distribution Width 16.9 % (11.5-14.5); Reactive Lymphocytes 4 % (0-10); Red Blood Cell (RBC) Count 3.88 mill/uL (4.20-5.40); White Blood Cell (WBC) Count 3.3 thou/uL (4.8-10.8)
[2022-05-10 07:07] LABS: Anion Gap 13 mmol/L (10-20); BUN (Urea Nitrogen) 10 mg/dL (9.8-20.1); Calc. Creatinine Clearance 73 mL/min (70-130); Calcium 8.3 mg/dL (7.8-10.44); Carbon Dioxide 24 mmol/L (23-31); Chloride 106 mmol/L (98-107); Estimated GFR 91; Glucose 89 mg/dL (83-110); Magnesium 1.8 mg/dL (1.6-2.6); Potassium 3.5 mmol/L (3.5-5.1); Sodium 139 mmol/L (136-145)
[2022-05-10] MEDS: predniSONE 5 MG TAB PO SCH (08:55)
[2022-05-10] MEDS: Folic Acid 1 MG TAB PO SCH (08:55)
[2022-05-10] MEDS: Apixaban 5 MG TAB PO SCH ×2 (08:55→22:15)
[2022-05-10] MEDS: Lisinopril 20 MG TAB PO SCH ×2 (08:55→22:14)
[2022-05-10] MEDS: Carvedilol 3.125 MG TAB PO SCH ×2 (08:55→16:31)
[2022-05-10] MEDS: Cholecalciferol 1,000 UNITS (25 MCG) TAB PO SCH (08:55)
[2022-05-10] MEDS ORDERED: Potassium Chloride 20 MEQ TAB PO SCH (10:45)
[2022-05-10] MEDS ORDERED: Furosemide 20 MG TAB PO SCH (10:45)
[2022-05-10] MEDS: Rizatriptan Benzoate 10 MG MLT TAB PO PRN (12:42)
[2022-05-10] MEDS: Atorvastatin Calcium 10 MG TAB PO SCH (22:15)
[2022-05-11] MEDS: Ondansetron PF 4 MG/2 ML Vial IVP PRN ×2 (04:27→12:29)
[2022-05-11] MEDS: Albuterol 200 PUFF (6.7GM INHALER) INH PRN (04:34)
[2022-05-11] MEDS: Acetaminophen 500 MG TAB PO PRN ×2 (05:09→20:23)
[2022-05-11 07:06] LABS: #Lymphocytes 1.3 thou/uL (1.20-3.40); #Monocytes 0.4 thou/uL (0.11-0.59); %Basophils 0.6 % (0.0-1.0); %Eosinophils 0.3 % (0.0-10.0); %Lymphocytes 48.2 % (21.0-51.0); %Monocytes 14.8 % (0.0-10.0); %Neutrophils 36.1 % (42.0-75.0); Mean Corpuscular HGB CONC 31.6 g/dL (32.0-36.0); Mean Corpuscular Volume 82.3 fL (78.0-98.0); Mean Platelet Volume 10.7 fL (7.4-10.4); Platelet Count 123 thou/uL (130-400); RBC Distribution Width 17.1 % (11.5-14.5); Red Blood Cell (RBC) Count 4.24 mill/uL (4.20-5.40); White Blood Cell (WBC) Count 2.7 thou/uL (4.8-10.8)
[2022-05-11] MEDS: Lisinopril 20 MG TAB PO SCH ×2 (09:07→20:22)
[2022-05-11] MEDS: Carvedilol 3.125 MG TAB PO SCH ×2 (09:08→17:57)
[2022-05-11] MEDS: Cholecalciferol 1,000 UNITS (25 MCG) TAB PO SCH (09:10)
[2022-05-11] MEDS: Furosemide 20 MG TAB PO SCH (09:10)
[2022-05-11] MEDS: Folic Acid 1 MG TAB PO SCH (09:10)
[2022-05-11] MEDS: Apixaban 5 MG TAB PO SCH ×2 (09:10→20:23)
[2022-05-11] MEDS: predniSONE 5 MG TAB PO SCH (09:11)
[2022-05-11] MEDS: Cefepime 2 GM in Sodium Chloride 0.9% 100 ML IVPB SCH ×2 (10:13→23:58)
[2022-05-11 13:46] LABS: Bacteria/HPF None Seen HPF (None Seen); Bilirubin Negative (Negative); Blood, Urine Trace (Negative); Clarity Clear (Clear); Glucose, Urine (Dipstick) Normal (Negative); Ketone, Urine Negative (Negative); Leukocyte Negative Leu/uL (Negative); Nitrite Negative (Negative); Protein, Urine (Dipstick) Negative (Neg-Trace); RBC/HPF None Seen HPF (0-3); Specific Gravity, Urine 1.011 (1.002-1.036); Squamous Epithelial None Seen HPF (0-3); Urobilinogen Normal mg/dL (Less than 2); WBC/HPF 0-3 HPF (0-3)
[2022-05-11] MEDS: VANCOMYCIN 1.25 GM/250 ML BAG 1.25 GM in Premix Bag 1 BAG IVPB SCH (13:46)
[2022-05-11 13:48] LABS: Urine Culture Reflex No No
[2022-05-11] MEDS ORDERED: Furosemide 20 MG/2 ML VIAL SLOW IVP SCH (14:00)
[2022-05-11] MEDS: Atorvastatin Calcium 10 MG TAB PO SCH (20:22)
[2022-05-11] MEDS: Ondansetron ODT 4 MG TAB PO PRN (20:24)
[2022-05-12 04:12] LABS: #Basophils 0.1 thou/uL (0.0-0.2); #Lymphocytes 1.9 thou/uL (1.20-3.40); #Monocytes 0.5 thou/uL (0.11-0.59); #Neutrophils 2.3 thou/uL (1.40-6.50); %Basophils 1.2 % (0.0-1.0); %Eosinophils 0.1 % (0.0-10.0); %Lymphocytes 38.9 % (21.0-51.0); %Neutrophils 48.7 % (42.0-75.0); Hemoglobin 12.3 g/dL (12.0-16.0); Mean Corpuscular HGB CONC 31.2 g/dL (32.0-36.0); Mean Corpuscular Hemoglobin 25.8 pg (27.0-31.0); Mean Corpuscular Volume 82.6 fL (78.0-98.0); Mean Platelet Volume 10.7 fL (7.4-10.4); Platelet Count 143 thou/uL (130-400); RBC Distribution Width 17.4 % (11.5-14.5); Red Blood Cell (RBC) Count 4.75 mill/uL (4.20-5.40); White Blood Cell (WBC) Count 4.8 thou/uL (4.8-10.8)
[2022-05-12 04:38] LABS: ALT (SGPT) 29 U/L (8-55); AST (SGOT) 40 U/L (5-34); Albumin 3.3 g/dL (3.4-4.8); Alkaline Phosphatase 57 U/L (40-110); Anion Gap 15 mmol/L (10-20); BUN (Urea Nitrogen) 13 mg/dL (9.8-20.1); Bilirubin, Total 1.1 mg/dL (0.2-1.2); Calc. Creatinine Clearance 71 mL/min (70-130); Calcium 8.9 mg/dL (7.8-10.44); Carbon Dioxide 29 mmol/L (23-31); Chloride 99 mmol/L (98-107); Estimated GFR 91; Globulin 2.3 g/dL (2.4-3.5); Glucose 89 mg/dL (83-110); Magnesium 1.5 mg/dL (1.6-2.6); Potassium 3.2 mmol/L (3.5-5.1); Protein, Total 5.6 g/dL (5.8-8.1); Sodium 140 mmol/L (136-145)
[2022-05-12] MEDS: Labetalol HCl 100 MG/20 ML VIAL SLOW IVP PRN (05:15)
[2022-05-12] MEDS ORDERED: Electrolyte Replacement Protocol 1 EACH FS SCH (07:00)
[2022-05-12 08:30] LABS: Anion Gap 19 mmol/L (10-20); BUN (Urea Nitrogen) 13 mg/dL (9.8-20.1); Calc. Creatinine Clearance 66 mL/min (70-130); Calcium 8.6 mg/dL (7.8-10.44); Carbon Dioxide 20 mmol/L (23-31); Chloride 102 mmol/L (98-107); Estimated GFR 90; Glucose 88 mg/dL (83-110); Potassium 4.1 mmol/L (3.5-5.1); Sodium 137 mmol/L (136-145)
[2022-05-12] MEDS ORDERED: Potassium Chloride 20 MEQ TAB PO SCH (09:00)
[2022-05-12] MEDS ORDERED: Magnesium 2 GM/50 ML(in water) 2 GM in Premix Bag 1 BAG IVPB SCH (09:00)
[2022-05-12] MEDS: Furosemide 20 MG TAB PO SCH (10:33)
[2022-05-12] MEDS: Folic Acid 1 MG TAB PO SCH (10:34)
[2022-05-12] MEDS: Apixaban 5 MG TAB PO SCH ×2 (10:34→22:13)
[2022-05-12] MEDS: predniSONE 5 MG TAB PO SCH (10:34)
[2022-05-12] MEDS: Cefepime 2 GM in Sodium Chloride 0.9% 100 ML IVPB SCH ×2 (10:34→22:13)
[2022-05-12] MEDS: Lisinopril 20 MG TAB PO SCH ×2 (10:34→22:13)
[2022-05-12] MEDS: Cholecalciferol 1,000 UNITS (25 MCG) TAB PO SCH (10:34)
[2022-05-12] MEDS: Dexamethasone 10 MG/ML VIAL SLOW IVP SCH (11:13)
[2022-05-12] MEDS: VANCOMYCIN 1.25 GM/250 ML BAG 1.25 GM in Premix Bag 1 BAG IVPB SCH (14:00)
[2022-05-12] MEDS: Atorvastatin Calcium 10 MG TAB PO SCH (22:13)
[2022-05-13 04:47] LABS: Anion Gap 17 mmol/L (10-20); BUN (Urea Nitrogen) 15 mg/dL (9.8-20.1); Calc. Creatinine Clearance 72 mL/min (70-130); Calcium 8.6 mg/dL (7.8-10.44); Carbon Dioxide 25 mmol/L (23-31); Chloride 100 mmol/L (98-107); Estimated GFR 92; Glucose 127 mg/dL (83-110); Magnesium 2.1 mg/dL (1.6-2.6); Potassium 3.8 mmol/L (3.5-5.1); Sodium 138 mmol/L (136-145)
[2022-05-13] MEDS: Apixaban 5 MG TAB PO SCH ×2 (10:36→21:45)
[2022-05-13] MEDS: Furosemide 20 MG TAB PO SCH (10:37)
[2022-05-13] MEDS: Cholecalciferol 1,000 UNITS (25 MCG) TAB PO SCH (10:37)
[2022-05-13] MEDS: Folic Acid 1 MG TAB PO SCH (10:37)
[2022-05-13] MEDS: Dexamethasone 10 MG/ML VIAL SLOW IVP SCH (10:38)
[2022-05-13] MEDS: Cefepime 2 GM in Sodium Chloride 0.9% 100 ML IVPB SCH ×2 (10:40→22:40)
[2022-05-13] MEDS: Lisinopril 20 MG TAB PO SCH ×2 (10:40→21:45)
[2022-05-13 11:18] LABS: Vancomycin, Trough 8.9 ug/mL
[2022-05-13] MEDS: Vancomycin 1.5 GRAM/300 ML BAG 1.5 GM in Premix Bag 1 BAG IVPB SCH (11:52)
[2022-05-13] MEDS: Ondansetron PF 4 MG/2 ML Vial IVP PRN (13:21)
[2022-05-13] MEDS: Atorvastatin Calcium 10 MG TAB PO SCH (21:45)
[2022-05-14 04:58] LABS: #Lymphocytes 1.1 thou/uL (1.20-3.40); #Monocytes 0.6 thou/uL (0.11-0.59); #Neutrophils 3.9 thou/uL (1.40-6.50); %Basophils 0.2 % (0.0-1.0); %Lymphocytes 19.1 % (21.0-51.0); %Monocytes 11.4 % (0.0-10.0); %Neutrophils 69.4 % (42.0-75.0); Mean Corpuscular HGB CONC 31.5 g/dL (32.0-36.0); Mean Corpuscular Hemoglobin 26.3 pg (27.0-31.0); Mean Corpuscular Volume 83.6 fL (78.0-98.0); Mean Platelet Volume 10.6 fL (7.4-10.4); Platelet Count 153 thou/uL (130-400); RBC Distribution Width 17.6 % (11.5-14.5); Red Blood Cell (RBC) Count 4.18 mill/uL (4.20-5.40); White Blood Cell (WBC) Count 5.6 thou/uL (4.8-10.8)
[2022-05-14] MEDS: Acetaminophen 500 MG TAB PO PRN ×2 (05:00→18:21)
[2022-05-14 05:44] LABS: Anion Gap 18 mmol/L (10-20); BUN (Urea Nitrogen) 17 mg/dL (9.8-20.1); Calc. Creatinine Clearance 72 mL/min (70-130); Calcium 8.8 mg/dL (7.8-10.44); Carbon Dioxide 26 mmol/L (23-31); Chloride 100 mmol/L (98-107); Estimated GFR 93; Glucose 101 mg/dL (83-110); Magnesium 1.9 mg/dL (1.6-2.6); Potassium 3.5 mmol/L (3.5-5.1); Sodium 140 mmol/L (136-145)
[2022-05-14] MEDS ORDERED: Potassium Chloride 20 MEQ TAB PO SCH (08:00)
[2022-05-14] MEDS ORDERED: Magnesium 2 GM/50 ML(in water) 2 GM in Premix Bag 1 BAG IVPB SCH (08:00)
[2022-05-14] MEDS: Cefepime 2 GM in Sodium Chloride 0.9% 100 ML IVPB SCH (10:04)
[2022-05-14] MEDS: Furosemide 20 MG TAB PO SCH (10:05)
[2022-05-14] MEDS: Apixaban 5 MG TAB PO SCH ×2 (10:05→21:17)
[2022-05-14] MEDS: Lisinopril 20 MG TAB PO SCH ×2 (10:06→21:18)
[2022-05-14] MEDS: Folic Acid 1 MG TAB PO SCH (10:06)
[2022-05-14] MEDS: Cholecalciferol 1,000 UNITS (25 MCG) TAB PO SCH (10:07)
[2022-05-14] MEDS: Dexamethasone 10 MG/ML VIAL SLOW IVP SCH (11:02)
[2022-05-14] MEDS: Vancomycin 1.5 GRAM/300 ML BAG 1.5 GM in Premix Bag 1 BAG IVPB SCH (13:01)
[2022-05-14] MEDS: Piperacillin/Tazobactam 3.375 GM in Sodium Chloride 0.9% 100 ML IVPB SCH ×3 (15:05→21:17)
[2022-05-14] MEDS: diphenhydrAMINE 50 MG/ML VIAL IVP PRN ×2 (16:30→21:17)
[2022-05-14] MEDS ORDERED: Piperacillin/Tazobactam 3.375 GM in Sodium Chloride 0.9% 100 ML IVPB SCH (18:00)
[2022-05-14] MEDS: Atorvastatin Calcium 10 MG TAB PO SCH (21:18)
[2022-05-15] MEDS: diphenhydrAMINE 50 MG/ML VIAL IVP PRN ×3 (05:31→20:04)
[2022-05-15] MEDS: Piperacillin/Tazobactam 3.375 GM in Sodium Chloride 0.9% 100 ML IVPB SCH ×3 (05:31→20:02)
[2022-05-15 05:52] LABS: Band 6 % (5-11); Hemoglobin 10.7 g/dL (12.0-16.0); Hypochromia SLIGHT = 6-15 cells (100X) (0-5/hpf); Lymphocytes 12 % (21-51); MDiff Complete? YES; Mean Corpuscular Hemoglobin 25.8 pg (27.0-31.0); Mean Corpuscular Volume 83.3 fL (78.0-98.0); Mean Platelet Volume 10.6 fL (7.4-10.4); Monocytes 13 % (0-10); Neutrophil 69 % (42-75); Platelet Count 150 thou/uL (130-400); Platelet Morphology Comment Appears Adequate; RBC Distribution Width 17.2 % (11.5-14.5); Red Blood Cell (RBC) Count 4.13 mill/uL (4.20-5.40)
[2022-05-15] MEDS: Folic Acid 1 MG TAB PO SCH (08:33)
[2022-05-15] MEDS: Cholecalciferol 1,000 UNITS (25 MCG) TAB PO SCH (08:33)
[2022-05-15] MEDS: Apixaban 5 MG TAB PO SCH ×2 (08:33→20:03)
[2022-05-15] MEDS: predniSONE 20 MG TAB PO SCH (08:33)
[2022-05-15] MEDS: Furosemide 20 MG TAB PO SCH (08:34)
[2022-05-15] MEDS: Lisinopril 20 MG TAB PO SCH ×2 (08:34→20:03)
[2022-05-15 12:05] LABS: Bacteria/HPF None Seen HPF (None Seen); Bilirubin Negative (Negative); Blood, Urine Negative (Negative); Clarity Clear (Clear); Glucose, Urine (Dipstick) Normal (Negative); Ketone, Urine Negative (Negative); Leukocyte Negative Leu/uL (Negative); Nitrite Negative (Negative); Protein, Urine (Dipstick) 30 mg/dL (Neg-Trace); RBC/HPF None Seen HPF (0-3); Specific Gravity, Urine 1.016 (1.002-1.036); Squamous Epithelial None Seen HPF (0-3); Urobilinogen Normal mg/dL (Less than 2); WBC/HPF 0-3 HPF (0-3)
[2022-05-15 12:10] LABS: Urine Culture Reflex No No
[2022-05-15] MEDS: Acetaminophen 500 MG TAB PO PRN (17:55)
[2022-05-15] MEDS: Atorvastatin Calcium 10 MG TAB PO SCH (20:03)
[2022-05-16] MEDS ORDERED: Guaifenesin DM 100-10/5 ML UDCUP PO PRN (04:24)
[2022-05-16] MEDS: Acetaminophen 500 MG TAB PO PRN ×2 (04:37→20:33)
[2022-05-16] MEDS ORDERED: guaiFENesin/DM ER PO SCH (05:00)
[2022-05-16] MEDS: Piperacillin/Tazobactam 3.375 GM in Sodium Chloride 0.9% 100 ML IVPB SCH ×3 (05:05→20:05)
[2022-05-16] MEDS ORDERED: Morphine 2 MG/ML VIAL SLOW IVP SCH (06:15)
[2022-05-16 06:50] LABS: Hemoglobin 10.5 g/dL (12.0-16.0); Mean Corpuscular HGB CONC 31.5 g/dL (32.0-36.0); Mean Corpuscular Hemoglobin 26.5 pg (27.0-31.0); Mean Corpuscular Volume 84.1 fL (78.0-98.0); Mean Platelet Volume 10.1 fL (7.4-10.4); Platelet Count 178 thou/uL (130-400); Red Blood Cell (RBC) Count 3.96 mill/uL (4.20-5.40); White Blood Cell (WBC) Count 2.3 thou/uL (4.8-10.8)
[2022-05-16 06:53] LABS: Anion Gap 12 mmol/L (10-20); BUN (Urea Nitrogen) 16 mg/dL (9.8-20.1); Calc. Creatinine Clearance 73 mL/min (70-130); Calcium 8.7 mg/dL (7.8-10.44); Carbon Dioxide 32 mmol/L (23-31); Chloride 99 mmol/L (98-107); Estimated GFR 92; Glucose 82 mg/dL (83-110); Sodium 140 mmol/L (136-145)
[2022-05-16] MEDS ORDERED: Potassium Chloride 20 MEQ TAB PO SCH (07:15)
[2022-05-16 07:24] LABS: Band 6 % (5-11); Hypochromia SLIGHT = 6-15 cells (100X) (0-5/hpf); Lymphocytes 40 % (21-51); MDiff Complete? YES; Monocytes 12 % (0-10); Neutrophil 40 % (42-75); Ovalocytes SLIGHT = 2-5 cells (100X) (0-1/hpf); Platelet Morphology Comment Appears Adequate; Polychromasia SLIGHT = 2-3 cells (100X) (0-2/hpf); Reactive Lymphocytes 2 % (0-10); Tear Drops SLIGHT = 2-5 cells (100X) (0-1/hpf)
[2022-05-16] MEDS: Lisinopril 20 MG TAB PO SCH ×2 (08:21→20:05)
[2022-05-16] MEDS: Folic Acid 1 MG TAB PO SCH (08:21)
[2022-05-16] MEDS: predniSONE 20 MG TAB PO SCH (08:22)
[2022-05-16] MEDS: Cholecalciferol 1,000 UNITS (25 MCG) TAB PO SCH (08:22)
[2022-05-16] MEDS: Furosemide 20 MG TAB PO SCH (08:22)
[2022-05-16] MEDS: Apixaban 5 MG TAB PO SCH ×2 (08:24→20:05)
[2022-05-16] MEDS: diphenhydrAMINE 50 MG/ML VIAL IVP PRN (12:38)
[2022-05-16] MEDS: Atorvastatin Calcium 10 MG TAB PO SCH (20:05)
[2022-05-16] MEDS ORDERED: diphenhydrAMINE 50 MG/ML VIAL IVP PRN (20:12)
[2022-05-17] MEDS: Labetalol HCl 100 MG/20 ML VIAL SLOW IVP PRN (03:43)
[2022-05-17] MEDS: Piperacillin/Tazobactam 3.375 GM in Sodium Chloride 0.9% 100 ML IVPB SCH ×2 (03:43→13:38)
[2022-05-17 04:50] LABS: #Lymphocytes 0.7 thou/uL (1.20-3.40); #Monocytes 0.3 thou/uL (0.11-0.59); #Neutrophils 1.1 thou/uL (1.40-6.50); %Eosinophils 0.6 % (0.0-10.0); %Lymphocytes 34.6 % (21.0-51.0); %Monocytes 14.2 % (0.0-10.0); %Neutrophils 50.6 % (42.0-75.0); Hemoglobin 10.4 g/dL (12.0-16.0); Mean Corpuscular HGB CONC 31.6 g/dL (32.0-36.0); Mean Corpuscular Hemoglobin 26.8 pg (27.0-31.0); Mean Corpuscular Volume 84.8 fL (78.0-98.0); Platelet Count 198 thou/uL (130-400); RBC Distribution Width 17.1 % (11.5-14.5); Red Blood Cell (RBC) Count 3.89 mill/uL (4.20-5.40); White Blood Cell (WBC) Count 2.1 thou/uL (4.8-10.8)
[2022-05-17 05:08] LABS: ALT (SGPT) 31 U/L (8-55); AST (SGOT) 57 U/L (5-34); Albumin 3.2 g/dL (3.4-4.8); Alkaline Phosphatase 65 U/L (40-110); Anion Gap 16 mmol/L (10-20); BUN (Urea Nitrogen) 13 mg/dL (9.8-20.1); Calc. Creatinine Clearance 61 mL/min (70-130); Calcium 9.2 mg/dL (7.8-10.44); Chloride 99 mmol/L (98-107); Estimated GFR 89; Globulin 2.7 g/dL (2.4-3.5); Glucose 87 mg/dL (83-110); Magnesium 1.6 mg/dL (1.6-2.6); Potassium 3.3 mmol/L (3.5-5.1); Protein, Total 5.9 g/dL (5.8-8.1); Sodium 141 mmol/L (136-145)
[2022-05-17 05:43] LABS: Bilirubin, Total 1.6 mg/dL (0.2-1.2); Carbon Dioxide 29 mmol/L (23-31)
[2022-05-17] MEDS ORDERED: Potassium Chloride 20 MEQ TAB PO SCH (06:30)
[2022-05-17] MEDS ORDERED: Magnesium 2 GM/50 ML(in water) 2 GM in Premix Bag 1 BAG IVPB SCH (06:30)
[2022-05-17] MEDS ORDERED: Furosemide 20 MG/2 ML VIAL SLOW IVP SCH (08:30)
[2022-05-17] MEDS: Folic Acid 1 MG TAB PO SCH (08:56)
[2022-05-17] MEDS: Apixaban 5 MG TAB PO SCH ×2 (08:57→21:45)
[2022-05-17] MEDS: Lisinopril 20 MG TAB PO SCH ×2 (08:57→21:45)
[2022-05-17] MEDS: predniSONE 20 MG TAB PO SCH (08:58)
[2022-05-17] MEDS: Cholecalciferol 1,000 UNITS (25 MCG) TAB PO SCH (08:58)
[2022-05-17] MEDS: Furosemide 20 MG TAB PO SCH (09:09)
[2022-05-17] MEDS ORDERED: Acetaminophen 650 MG Suppository PR SCH (12:15)
[2022-05-17 12:36] LABS: Actual Bicarbonate (HCO3a) 27.6 mEq/L (22-28); Base Excess (BEa) 4.9 mEq/L (-2.0 to +3.0); CO2 Tension 33.6 mmHg (35.0-45.0); Carboxyhemoglobin (COHb) 0.4 gm% (0.0-3.0); Hemoglobin (Hb) 10.3 g/dL (12.0-16.0); Potassium - ABG Lab 3.56 mmol/L (3.70-5.30); pH, Arterial 7.53 (7.35-7.45)
[2022-05-17 12:37] LABS: O2 Tension (PaO2), arterial 59.2 mmHg (> 70.0)
[2022-05-17 12:38] LABS: Puncture Site RBA
[2022-05-17] MEDS: metroNIDAZOLE 500 MG in Premix Bag 1 BAG IVPB SCH ×2 (14:40→21:52)
[2022-05-17] MEDS: Furosemide 20 MG/2 ML VIAL SLOW IVP SCH (14:44)
[2022-05-17] MEDS: Vancomycin 1.5 GRAM/300 ML BAG 1.5 GM in Premix Bag 1 BAG IVPB SCH (14:46)
[2022-05-17] MEDS ORDERED: Cefepime 1 GM in Sodium Chloride 0.9% 100 ML IVPB SCH (15:00)
[2022-05-17] MEDS: Cefepime 2 GM in Sodium Chloride 0.9% 100 ML IVPB SCH (16:16)
[2022-05-17] MEDS: Atorvastatin Calcium 10 MG TAB PO SCH (21:45)
[2022-05-18 03:44] LABS: #Monocytes 0.3 thou/uL (0.11-0.59); #Neutrophils 2.3 thou/uL (1.40-6.50); %Eosinophils 0.2 % (0.0-10.0); %Lymphocytes 26.4 % (21.0-51.0); %Monocytes 9.4 % (0.0-10.0); %Neutrophils 63.9 % (42.0-75.0); Hemoglobin 10.1 g/dL (12.0-16.0); Mean Corpuscular HGB CONC 30.9 g/dL (32.0-36.0); Mean Corpuscular Hemoglobin 26.6 pg (27.0-31.0); Mean Corpuscular Volume 86.1 fL (78.0-98.0); Mean Platelet Volume 10.2 fL (7.4-10.4); Platelet Count 212 thou/uL (130-400); RBC Distribution Width 17.3 % (11.5-14.5); Red Blood Cell (RBC) Count 3.79 mill/uL (4.20-5.40); White Blood Cell (WBC) Count 3.6 thou/uL (4.8-10.8)
[2022-05-18] MEDS: Cefepime 2 GM in Sodium Chloride 0.9% 100 ML IVPB SCH ×2 (03:52→15:06)
[2022-05-18 04:06] LABS: ALT (SGPT) 31 U/L (8-55); AST (SGOT) 63 U/L (5-34); Alkaline Phosphatase 67 U/L (40-110); Anion Gap 19 mmol/L (10-20); BUN (Urea Nitrogen) 18 mg/dL (9.8-20.1); Bilirubin, Total 1.5 mg/dL (0.2-1.2); Calc. Creatinine Clearance 64 mL/min (70-130); Calcium 8.5 mg/dL (7.8-10.44); Carbon Dioxide 24 mmol/L (23-31); Chloride 101 mmol/L (98-107); Estimated GFR 90; Globulin 2.4 g/dL (2.4-3.5); Glucose 75 mg/dL (83-110); Magnesium 2.1 mg/dL (1.6-2.6); Potassium 3.8 mmol/L (3.5-5.1); Protein, Total 5.4 g/dL (5.8-8.1); Sodium 140 mmol/L (136-145)
[2022-05-18] MEDS: metroNIDAZOLE 500 MG in Premix Bag 1 BAG IVPB SCH ×3 (05:30→21:14)
[2022-05-18] MEDS: Furosemide 20 MG/2 ML VIAL SLOW IVP SCH ×2 (05:31→13:55)
[2022-05-18] MEDS: Apixaban 5 MG TAB PO SCH ×2 (09:41→21:11)
[2022-05-18] MEDS: Cholecalciferol 1,000 UNITS (25 MCG) TAB PO SCH ×2 (09:41→10:50)
[2022-05-18] MEDS: Folic Acid 1 MG TAB PO SCH ×2 (09:41→10:50)
[2022-05-18] MEDS: predniSONE 20 MG TAB PO SCH (09:41)
[2022-05-18] MEDS: Lisinopril 20 MG TAB PO SCH ×2 (09:41→21:12)
[2022-05-18] MEDS: Furosemide 20 MG TAB PO SCH (09:42)
[2022-05-18] MEDS ORDERED: Morphine 2 MG/ML VIAL SLOW IVP SCH (12:00)
[2022-05-18] MEDS ORDERED: Acetaminophen 650 MG Suppository PR PRN (14:34)
[2022-05-18] MEDS: Vancomycin 1.5 GRAM/300 ML BAG 1.5 GM in Premix Bag 1 BAG IVPB SCH (17:04)
[2022-05-18] MEDS: Atorvastatin Calcium 10 MG TAB PO SCH (21:12)
[2022-05-19] MEDS: Cefepime 2 GM in Sodium Chloride 0.9% 100 ML IVPB SCH ×2 (03:07→15:50)
[2022-05-19] MEDS: Furosemide 20 MG/2 ML VIAL SLOW IVP SCH ×2 (05:09→14:24)
[2022-05-19] MEDS: metroNIDAZOLE 500 MG in Premix Bag 1 BAG IVPB SCH ×3 (05:09→23:08)
[2022-05-19] MEDS ORDERED: Metoprolol Tartrate 5 MG/5 ML VIAL ONE (06:37)
[2022-05-19 07:02] LABS: #Eosinphils 0.1 thou/uL (0.0-0.7); #Monocytes 0.4 thou/uL (0.11-0.59); %Basophils 0.4 % (0.0-1.0); %Lymphocytes 22.3 % (21.0-51.0); %Monocytes 8.2 % (0.0-10.0); %Neutrophils 67.1 % (42.0-75.0); Hemoglobin 10.9 g/dL (12.0-16.0); Mean Corpuscular HGB CONC 30.1 g/dL (32.0-36.0); Mean Corpuscular Hemoglobin 25.5 pg (27.0-31.0); Mean Corpuscular Volume 84.8 fL (78.0-98.0); Platelet Count 238 thou/uL (130-400); RBC Distribution Width 17.4 % (11.5-14.5); Red Blood Cell (RBC) Count 4.29 mill/uL (4.20-5.40); White Blood Cell (WBC) Count 4.5 thou/uL (4.8-10.8)
[2022-05-19 07:20] LABS: ALT (SGPT) 36 U/L (8-55); AST (SGOT) 86 U/L (5-34); Albumin 3.1 g/dL (3.4-4.8); Alkaline Phosphatase 85 U/L (40-110); Anion Gap 24 mmol/L (10-20); BUN (Urea Nitrogen) 22 mg/dL (9.8-20.1); Bilirubin, Total 1.7 mg/dL (0.2-1.2); Calc. Creatinine Clearance 52 mL/min (70-130); Calcium 9.3 mg/dL (7.8-10.44); Carbon Dioxide 23 mmol/L (23-31); Chloride 104 mmol/L (98-107); Estimated GFR 74; Globulin 2.8 g/dL (2.4-3.5); Glucose 88 mg/dL (83-110); Potassium 3.7 mmol/L (3.5-5.1); Protein, Total 5.9 g/dL (5.8-8.1); Sodium 147 mmol/L (136-145)
[2022-05-19] MEDS: predniSONE 20 MG TAB PO SCH (07:35)
[2022-05-19] MEDS: Apixaban 5 MG TAB PO SCH ×2 (07:35→23:09)
[2022-05-19] MEDS: Cholecalciferol 1,000 UNITS (25 MCG) TAB PO SCH (07:35)
[2022-05-19] MEDS: Furosemide 20 MG TAB PO SCH (07:36)
[2022-05-19] MEDS: Folic Acid 1 MG TAB PO SCH (07:36)
[2022-05-19] MEDS: Lisinopril 20 MG TAB PO SCH ×2 (07:36→23:09)
[2022-05-19] MEDS ORDERED: Metoprolol Tartrate 5 MG/5 ML VIAL IVP SCH (08:00)
[2022-05-19] MEDS ORDERED: Magnesium 2 GM/50 ML(in water) 2 GM in Premix Bag 1 BAG IVPB SCH (09:30)
[2022-05-19] MEDS ORDERED: predniSONE 20 MG TAB PO SCH (09:30)
[2022-05-19] MEDS ORDERED: methylPREDNISolone Sod Succ 40 MG VIAL IVP SCH (11:45)
[2022-05-19] MEDS: Morphine 2 MG/ML VIAL SLOW IVP PRN ×3 (11:56→23:10)
[2022-05-19] MEDS: Acetaminophen 500 MG TAB PO PRN (14:30)
[2022-05-19 15:33] LABS: Vancomycin, Trough 12.6 ug/mL
[2022-05-19] MEDS: Vancomycin 1.5 GRAM/300 ML BAG 1.5 GM in Premix Bag 1 BAG IVPB SCH (16:48)
[2022-05-19] MEDS: Albuterol 200 PUFF (6.7GM INHALER) INH SCH (23:09)
[2022-05-19] MEDS: Atorvastatin Calcium 10 MG TAB PO SCH (23:09)
[2022-05-20] MEDS: Albuterol 200 PUFF (6.7GM INHALER) INH SCH ×4 (06:21→22:30)
[2022-05-20] MEDS: Cefepime 2 GM in Sodium Chloride 0.9% 100 ML IVPB SCH ×2 (06:21→15:18)
[2022-05-20] MEDS: metroNIDAZOLE 500 MG in Premix Bag 1 BAG IVPB SCH ×3 (06:40→21:17)
[2022-05-20 06:47] LABS: #Lymphocytes 0.5 thou/uL (1.20-3.40); #Monocytes 0.3 thou/uL (0.11-0.59); #Neutrophils 5.2 thou/uL (1.40-6.50); %Basophils 0.1 % (0.0-1.0); %Eosinophils 0.1 % (0.0-10.0); %Lymphocytes 8.8 % (21.0-51.0); %Monocytes 4.6 % (0.0-10.0); %Neutrophils 86.3 % (42.0-75.0); Hemoglobin 10.7 g/dL (12.0-16.0); Mean Corpuscular HGB CONC 30.3 g/dL (32.0-36.0); Mean Corpuscular Hemoglobin 25.8 pg (27.0-31.0); Mean Corpuscular Volume 85.1 fL (78.0-98.0); Mean Platelet Volume 10.9 fL (7.4-10.4); Platelet Count 154 thou/uL (130-400); RBC Distribution Width 17.4 % (11.5-14.5); Red Blood Cell (RBC) Count 4.14 mill/uL (4.20-5.40)
[2022-05-20] MEDS ORDERED: predniSONE 20 MG TAB PO SCH (08:00)
[2022-05-20] MEDS: Folic Acid 1 MG TAB PO SCH (08:08)
[2022-05-20] MEDS: Lisinopril 20 MG TAB PO SCH ×2 (08:08→21:16)
[2022-05-20] MEDS: Apixaban 5 MG TAB PO SCH ×2 (08:08→21:16)
[2022-05-20] MEDS: Cholecalciferol 1,000 UNITS (25 MCG) TAB PO SCH (08:08)
[2022-05-20 08:14] LABS: ALT (SGPT) 32 U/L (8-55); AST (SGOT) 75 U/L (5-34); Albumin 2.9 g/dL (3.4-4.8); Alkaline Phosphatase 79 U/L (40-110); Anion Gap 24 mmol/L (10-20); BUN (Urea Nitrogen) 47 mg/dL (9.8-20.1); Bilirubin, Total 1.4 mg/dL (0.2-1.2); Calc. Creatinine Clearance 32 mL/min (70-130); Calcium 8.6 mg/dL (7.8-10.44); Carbon Dioxide 17 mmol/L (23-31); Chloride 107 mmol/L (98-107); Estimated GFR 43; Globulin 2.4 g/dL (2.4-3.5); Glucose 119 mg/dL (83-110); Potassium 3.3 mmol/L (3.5-5.1); Protein, Total 5.3 g/dL (5.8-8.1); Sodium 145 mmol/L (136-145)
[2022-05-20] MEDS ORDERED: Potassium Chloride 20 MEQ TAB PO SCH (09:00)
[2022-05-20] MEDS: methylPREDNISolone Sod Succ 40 MG VIAL IVP SCH (09:26)
[2022-05-20] MEDS ORDERED: Furosemide 20 MG/2 ML VIAL SLOW IVP SCH (14:00)
[2022-05-20] MEDS: Vancomycin 1.5 GRAM/300 ML BAG 1.5 GM in Premix Bag 1 BAG IVPB SCH (17:23)
[2022-05-20] MEDS: Atorvastatin Calcium 10 MG TAB PO SCH (21:16)
[2022-05-21] MEDS: Ondansetron PF 4 MG/2 ML Vial IVP PRN ×2 (00:10→21:52)
[2022-05-21] MEDS: Albuterol 200 PUFF (6.7GM INHALER) INH SCH ×4 (04:15→18:29)
[2022-05-21] MEDS: Cefepime 2 GM in Sodium Chloride 0.9% 100 ML IVPB SCH ×2 (04:16→14:03)
[2022-05-21 04:19] LABS: Anion Gap 20 mmol/L (10-20); BUN (Urea Nitrogen) 68 mg/dL (9.8-20.1); Calc. Creatinine Clearance 34 mL/min (70-130); Calcium 8.4 mg/dL (7.8-10.44); Carbon Dioxide 20 mmol/L (23-31); Chloride 109 mmol/L (98-107); Estimated GFR 45; Glucose 132 mg/dL (83-110); Sodium 146 mmol/L (136-145)
[2022-05-21 04:26] LABS: Potassium 2.7 mmol/L (3.5-5.1)
[2022-05-21 04:37] LABS: Anisocytosis SLIGHT = 6-15 cells (100X) (0-5/hpf); Band 2 % (5-11); Elliptocytes MODERATE= 6-15 cells (100X) (0-1/hpf); Hemoglobin 9.7 g/dL (12.0-16.0); Hypochromia SLIGHT = 6-15 cells (100X) (0-5/hpf); Lymphocytes 4 % (21-51); MDiff Complete? YES; Mean Corpuscular HGB CONC 31.2 g/dL (32.0-36.0); Mean Corpuscular Hemoglobin 26.2 pg (27.0-31.0); Mean Corpuscular Volume 83.8 fL (78.0-98.0); Mean Platelet Volume 11.8 fL (7.4-10.4); Monocytes 2 % (0-10); Neutrophil 92 % (42-75); Platelet Count 109 thou/uL (130-400); Platelet Morphology Comment Appears Decreased; Poikilocytosis SLIGHT = 6-15 cells (100X) (0-5/hpf); Polychromasia SLIGHT = 2-3 cells (100X) (0-2/hpf); RBC Distribution Width 17.4 % (11.5-14.5); Red Blood Cell (RBC) Count 3.71 mill/uL (4.20-5.40); Schistocytes SLIGHT = 2-5 cells (100X) (0-1/hpf); Target Cells SLIGHT = 2-5 cells (100X) (0-1/hpf); White Blood Cell (WBC) Count 10.7 thou/uL (4.8-10.8)
[2022-05-21] MEDS: Potassium Chloride 40 MEQ in Sodium Chloride 0.9% 250 ML 250 ML IVPB SCH ×2 (05:40→14:02)
[2022-05-21] MEDS: methylPREDNISolone Sod Succ 40 MG VIAL IVP SCH (08:54)
[2022-05-21] MEDS: metroNIDAZOLE 500 MG in Premix Bag 1 BAG IVPB SCH ×2 (08:54→14:02)
[2022-05-21] MEDS: Cholecalciferol 1,000 UNITS (25 MCG) TAB PO SCH (08:55)
[2022-05-21] MEDS: Folic Acid 1 MG TAB PO SCH (08:55)
[2022-05-21] MEDS: Apixaban 2.5 MG TAB PO SCH ×2 (08:56→21:53)
[2022-05-21 08:58] VITALS: BP 150/75
[2022-05-21] MEDS ORDERED: Lisinopril 5 MG TAB PO SCH (09:00)
[2022-05-21] MEDS: Vancomycin 1.5 GRAM/300 ML BAG 1.5 GM in Premix Bag 1 BAG IVPB SCH (15:47)
[2022-05-21] MEDS ORDERED: metroNIDAZOLE 500 MG in Premix Bag 1 BAG IVPB SCH (21:00)
[2022-05-21] MEDS: Morphine 2 MG/ML VIAL SLOW IVP PRN (21:52)
[2022-05-21] MEDS: Atorvastatin Calcium 10 MG TAB PO SCH (21:53)
[2022-05-22] MEDS: Albuterol 200 PUFF (6.7GM INHALER) INH SCH ×3 (02:29→12:29)
[2022-05-22 04:28] LABS: ALT (SGPT) 21 U/L (8-55); AST (SGOT) 48 U/L (5-34); Albumin 2.7 g/dL (3.4-4.8); Alkaline Phosphatase 93 U/L (40-110); Anion Gap 19 mmol/L (10-20); BUN (Urea Nitrogen) 94 mg/dL (9.8-20.1); Bilirubin, Total 1.7 mg/dL (0.2-1.2); Calc. Creatinine Clearance 17 mL/min (70-130); Calcium 8.8 mg/dL (7.8-10.44); Carbon Dioxide 17 mmol/L (23-31); Chloride 111 mmol/L (98-107); Estimated GFR 20; Glucose 130 mg/dL (83-110); Potassium 4.2 mmol/L (3.5-5.1); Protein, Total 4.7 g/dL (5.8-8.1); Sodium 143 mmol/L (136-145)
[2022-05-22 04:39] LABS: Band 18 % (5-11); Hemoglobin 9.4 g/dL (12.0-16.0); Hypochromia SLIGHT = 6-15 cells (100X) (0-5/hpf); Lymphocytes 3 % (21-51); MDiff Complete? YES; Mean Corpuscular HGB CONC 31.5 g/dL (32.0-36.0); Mean Corpuscular Hemoglobin 26.1 pg (27.0-31.0); Mean Platelet Volume 8.7 fL (7.4-10.4); Monocytes 7 % (0-10); Neutrophil 72 % (42-75); Nucleated RBC 1 % (0); Platelet Count 53 thou/uL (130-400); Platelet Morphology Comment Appears Decreased; RBC Distribution Width 18.5 % (11.5-14.5); Red Blood Cell (RBC) Count 3.58 mill/uL (4.20-5.40); White Blood Cell (WBC) Count 12.8 thou/uL (4.8-10.8)
[2022-05-22 07:10] VITALS: TEMP 97.9
[2022-05-22] MEDS: Morphine 2 MG/ML VIAL SLOW IVP PRN ×4 (08:00→14:48)
[2022-05-22] MEDS: Apixaban 2.5 MG TAB PO SCH (08:42)
[2022-05-22] MEDS: Cholecalciferol 1,000 UNITS (25 MCG) TAB PO SCH (08:42)
[2022-05-22] MEDS: Folic Acid 1 MG TAB PO SCH (08:42)
[2022-05-22] MEDS ORDERED: methylPREDNISolone Sod Succ 40 MG VIAL IVP SCH (09:00)
[2022-05-22 10:04] VITALS: BMI 20.6
[2022-05-22] MEDS ORDERED: Lorazepam 2 MG/ML VIAL SLOW IVP PRN (10:46)
[2022-05-22] MEDS ORDERED: Scopolamine 1.5 mg/72 hour Patch TD SCH (11:00)
[2022-05-22] MEDS ORDERED: Cefepime 1 GM in Sodium Chloride 0.9% 100 ML IVPB SCH (14:00)
== END 2022-05-22 16:53 | disposition hospice, inpatient (51) | DRG 871 ==
LOC: ERS 00:07 → CCU 04:06 → T4-B 05-08 10:30 → IMCU/EMU 05-11 11:32 → 2NO 05-12 21:35 → IMCU/EMU 05-17 12:53
PROVIDERS: ADMIT Internal Medicine; ATTEND Internal Medicine
PROC: 3E04329 Introduction of Other Anti-infective into Central Vein, Percutaneous Approach (ICD-10-PCS; principal; 2022-05-05)
PROC: 5A1945Z Respiratory Ventilation, 24-96 Consecutive Hours (ICD-10-PCS; 2022-05-05)
PROC: 8E0ZXY6 Isolation (ICD-10-PCS; 2022-05-05)
PROC: 0D9670Z Drainage of Stomach with Drainage Device, Via Natural or Artificial Opening (ICD-10-PCS; 2022-05-05)
PROC: 00JU3ZZ Inspection of Spinal Canal, Percutaneous Approach (ICD-10-PCS; 2022-05-05)
PROC: 06HY33Z Insertion of Infusion Device into Lower Vein, Percutaneous Approach (ICD-10-PCS; 2022-05-05)
PROC: 0BH17EZ Insertion of Endotracheal Airway into Trachea, Via Natural or Artificial Opening (ICD-10-PCS; 2022-05-05)
PROC: 5A0955A Assistance with Respiratory Ventilation, Greater than 96 Consecutive Hours, High Flow/Velocity Cannula (ICD-10-PCS; 2022-05-17)
DX: A41.89 Other specified sepsis (principal); Z66 Do not resuscitate; Z51.5 Encounter for palliative care; J12.82 Pneumonia due to coronavirus disease 2019; G93.41 Metabolic encephalopathy; I21.A1 Myocardial infarction type 2; J96.21 Acute and chronic respiratory failure with hypoxia; J69.0 Pneumonitis due to inhalation of food and vomit; N17.9 Acute kidney failure, unspecified; L03.115 Cellulitis of right lower limb; J44.0 Chronic obstructive pulmonary disease with (acute) lower respiratory infection; I47.1 Supraventricular tachycardia; R65.20 Severe sepsis without septic shock; I48.0 Paroxysmal atrial fibrillation; M32.9 Systemic lupus erythematosus, unspecified; I11.0 Hypertensive heart disease with heart failure; E78.5 Hyperlipidemia, unspecified; E78.00 Pure hypercholesterolemia, unspecified; G43.909 Migraine, unspecified, not intractable, without status migrainosus; J44.9 Chronic obstructive pulmonary disease, unspecified; I50.9 Heart failure, unspecified; M06.9 Rheumatoid arthritis, unspecified; Z86.711 Personal history of pulmonary embolism; Z88.0 Allergy status to penicillin; Z88.8 Allergy status to other drugs, medicaments and biological substances; Z91.018 Allergy to other foods; Z90.89 Acquired absence of other organs; Z90.710 Acquired absence of both cervix and uterus; Z85.72 Personal history of non-Hodgkin lymphomas; Z86.73 Personal history of transient ischemic attack (TIA), and cerebral infarction without residual deficits; Z79.899 Other long term (current) drug therapy; Z79.82 Long term (current) use of aspirin; Z86.718 Personal history of other venous thrombosis and embolism; Z78.1 Physical restraint status
CPT/HCPCS: 12011; 31500; 36415; 36416; 36556; 36600; 51702; 70450; 71045; 74018; 74176; 80048; 80053; 80202; 81001; 81003; 82805; 83605; 83690; 83735; 83880; 84145; 84443; 84484; 85025; 85027; 85610; 85730; 86850; 86900; 86901; 87040; 87070; 87086; 87205; 93005; 93010; 94002; 94003; 94640; 94760; 96365; 96368; 96375; 96376; C9113; J0692; J1100; J1200; J1940; J2270; J2405; J2543; J2704; J2765; J2920; J3370; J3475; J3480; J3490; J7050; J7120; J7512; Q0162; U0002

== ENCOUNTER 2022-05-22 17:03 | Inpatient (IN) | payer OTHER ==
[2022-05-22] MEDS ORDERED: Scopolamine 1.5 mg/72 hour Patch TOP PRN (17:15)
[2022-05-22] MEDS ORDERED: Morphine 4 MG/ML VIAL ONE (17:15)
[2022-05-22] MEDS ORDERED: Lorazepam 2 MG/ML VIAL ONE (17:16)
[2022-05-22] MEDS ORDERED: Morphine 2 MG/ML VIAL SLOW IVP PRN ×2 (17:19→17:20)
[2022-05-22] MEDS ORDERED: Lorazepam 2 MG/ML VIAL SLOW IVP SCH (21:00)
[2022-05-23] MEDS ORDERED: Bisacodyl 10 MG SUPP PR SCH (09:00)
== END 2022-05-22 20:28 | disposition expired | DRG 951 ==
LOC: IMCU/EMU 17:03
PROVIDERS: ADMIT Family Medicine; ATTEND Family Medicine
DX: Z51.5 Encounter for palliative care (principal); U07.1 COVID-19; R65.20 Severe sepsis without septic shock; A41.9 Sepsis, unspecified organism; G93.41 Metabolic encephalopathy; L03.115 Cellulitis of right lower limb; M32.9 Systemic lupus erythematosus, unspecified; E78.5 Hyperlipidemia, unspecified; E78.00 Pure hypercholesterolemia, unspecified; G43.909 Migraine, unspecified, not intractable, without status migrainosus; I10 Essential (primary) hypertension; Z86.11 Personal history of tuberculosis; Z86.73 Personal history of transient ischemic attack (TIA), and cerebral infarction without residual deficits; Z79.01 Long term (current) use of anticoagulants; Z88.0 Allergy status to penicillin; Z91.018 Allergy to other foods; Z91.048 Other nonmedicinal substance allergy status; Z88.8 Allergy status to other drugs, medicaments and biological substances; Z79.899 Other long term (current) drug therapy; Z79.51 Long term (current) use of inhaled steroids; Z90.710 Acquired absence of both cervix and uterus; Z90.89 Acquired absence of other organs
CPT/HCPCS: J2060; J2270